=== PATIENT | male | born 1930 | race Caucasian/White ===

== ENCOUNTER 2017-06-11 18:24 | Inpatient (IN) | payer SELFPAY ==
[~2017-06-11] VITALS: Ht 172.7 cm; Wt 56.9 kg
[2017-06-11 01:00] VITALS: PULSE 96
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
[2017-06-11] MEDS ORDERED: MORPHINE SULFATE 2 MG/ML INJ IV PUSH ONE (19:15)
[2017-06-11] MEDS ORDERED: SODIUM CHLORIDE 0.9% FLUSH 10 ML FLUSH IVF PRN (19:15)
[2017-06-11] MEDS ORDERED: SODIUM CHLORID 0.9% 500 ML INJ 500 ML IV ONE (19:30)
--- NOTE | 2017-06-11 19:50 | RADRPT ---
EXAM DATE/TIME: 06/11/2017 19:32 [facility] COMPARISON: No previous studies available for comparison. INDICATIONS : Chest pain. MEDICAL HISTORY : None. SURGICAL HISTORY : CABG. ENCOUNTER: Initial ACUITY: 1 day PAIN SCORE: 1/10 LOCATION: Bilateral chest FINDINGS: The heart is enlarged. Median sternotomy wires are noted status post cardiac surgery. The pulmonary v ascular pattern is normal. The lungs are clear. CONCLUSION: 1. Cardiomegaly. 2. No focal infiltrate or pulmonary vascular congestion. Rahul Coley MD on June 11, 2017 at 19:48 Board Certified Radiologist. This report was verified electronically.
--- NOTE | 2017-06-11 19:51 | RADRPT ---
EXAM DATE/TIME: 06/11/2017 19:29 [facility] COMPARISON: No previous studies available for comparison. INDICATIONS : Left hip pain. Unknown cause of injury. MEDICAL HISTORY : None. SURGICAL HISTORY : CABG. ENCOUNTER: Initial ACUITY: 1 day PAIN SCORE: 10/10 LOCATION: Left hip. FINDINGS: There is an acute subcapital fracture involving the left proximal femur. Aortic stent graft is noted. CONCLUSION: Acute subcapital fracture involving the left proximal femur. Rahul Coley MD on June 11, 2017 at 19:49 Board Certified Radiologist. This report was verified electronically.
[2017-06-11 20:01] VITALS: BP_SYST 142; BP_SYST 145; BP_DIAS 68; BP_DIAS 71; PULSE 77; RESP 18; O2SAT 100
--- NOTE | 2017-06-11 20:23 | RADRPT ---
EXAM DATE/TIME: 06/11/2017 20:06 [facility] COMPARISON: No previous studies available for comparison. INDICATIONS : Altered mental status. RADIATION DOSE: 56.35 CTDIvol (mGy) MEDICAL HISTORY : None SURGICAL HISTORY : None. ENCOUNTER: Initial ACUITY: 1 day PAIN SCALE: 0/10 LOCATION: cranial TECHNIQUE: Multiple contiguous axial images were obtained of the head. Using automated exposure control and adj ustment of the mA and/or kV according to patient size, radiation dose was kept as low as reasonably a chievable to obtain optimal diagnostic quality images. DICOM format image data is available electro nically for review and comparison. FINDINGS: CEREBRUM: Diffuse cerebral atrophy is noted. Moderate periventricular and subcortical white matter small vessel ischemic changes are noted bilaterally. 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 No evidence of midline shift, mass lesion, hemorrhage or acute infarction. No extra-axial fluid collec tions are seen. POSTERIOR FOSSA: The cerebellum and brainstem are intact. The 4th ventricle is midline. The cerebellopontine angle i s unremarkable. EXTRACRANIAL: The visualized portion of the orbits is intact. SKULL: The calvaria is intact. No evidence of skull fracture. CONCLUSION: 1. Diffuse cerebral atrophy. 2. Moderate periventricular and subcortical white matter small vessel ischemic changes bilaterally. 3. 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 4. No acute infarct, acute hemorrhage, mass effect or extra axial fluid collections. Rahul Coley MD on June 11, 2017 at 20:20 Board Certified Radiologist. This report was verified electronically.
[2017-06-11 20:28] LABS: AUTOMATED NEUTROPHIL # 3.4 TH/MM3 (1.8-7.7); BASOPHIL # 0.1 TH/MM3 (0-0.2); BASOPHIL % 2.3 % (0.0-2.0); EOSINOPHIL # 0.3 TH/MM3 (0-0.4); EOSINOPHIL % 5.2 % (0.0-4.0); HEMATOCRIT 32.5 % (39.0-51.0); HEMO FLAGS DIFF FINAL; LYMPH % 26.1 % (9.0-44.0); LYMPHOCYTE # 1.6 TH/MM3 (1.0-4.8); MEAN CELL VOLUME 92.9 FL (80.0-100.0); MEAN CORPUSCULAR HEMOGLOBIN 30.9 PG (27.0-34.0); MEAN CORPUSCULAR HGB CONC 33.2 % (32.0-36.0); MONO % 10.6 % (0.0-8.0); NEUT % 55.8 % (16.0-70.0); PLATELET COUNT 216 TH/MM3 (150-450); RED BLOOD COUNT 3.49 MIL/MM3 (4.50-5.90); RED CELL DISTRIBUTION WIDTH 14.8 % (11.6-17.2); WHITE BLOOD COUNT 6.1 TH/MM3 (4.0-11.0)
[2017-06-11 20:41] LABS: INTERNATIONAL NORMALIZED RATIO 1.1 RATIO; PROTHROMBIN TIME - PATIENT 11.3 SEC (9.8-11.6)
[2017-06-11 20:45] LABS: BICARBONATE 28.2 MEQ/L (21.0-32.0); POTASSIUM 4.6 MEQ/L (3.5-5.1)
[2017-06-11] MEDS ORDERED: NALOXONE HCL 0.4 MG/ML AMP IV PUSH PRN (20:45)
[2017-06-11] MEDS ORDERED: SODIUM CHLORIDE 0.9% FLUSH 10 ML FLUSH IV FLUSH PRN (20:45)
[2017-06-11] MEDS ORDERED: MORPHINE SULFATE 2 MG/ML INJ IV PUSH PRN (21:00)
[2017-06-11] MEDS: SODIUM CHLORIDE 0.9% FLUSH 10 ML FLUSH IV FLUSH SCH (21:23)
[2017-06-12 00:15] VITALS: BP 125/75; PULSE 96; RESP 18; TEMP 96.8; O2SAT 96
[2017-06-12] MEDS ORDERED: CHLORHEXIDINE GLUCONATE 2 % 1 PACK (2 CLOTHS) TOPICAL PRN (01:00)
[2017-06-12] MEDS ORDERED: POVIDONE IODINE 5% (ANTISEPSIS KIT) 4 APPLICATIONS EACH NARE PRN (01:00)
[2017-06-12] MEDS ORDERED: INSULIN HUMAN REGULAR 1,000 UNITS/10 ML VIAL SQ PRN (01:00)
[2017-06-12] MEDS ORDERED: SODIUM CHLORID 0.9% 500 ML IV PRN (01:00)
[2017-06-12] MEDS ORDERED: LACTATED RINGER'S 1000 ML IV PRN (01:00)
[2017-06-12] MEDS ORDERED: METOPROLOL TARTRATE 25 MG TAB PO PRN (01:00)
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
[2017-06-12 04:25] VITALS: BP 118/74; PULSE 89; RESP 18; TEMP 96.7; O2SAT 96
--- NOTE | 2017-06-12 06:50 | PD.ORT.PN ---
Subjective Subjective Remarks [facility] Left hip pain and is unable to ambulate. Patient is very confused Objective Vitals Vital Signs Date Time Temp Pulse Resp B/P (MAP) Pulse Ox O2 Delivery O2 Flow Rate FiO2 06/12/17 04:25 96.7 89 18 118/74 (89) 96 06/12/17 00:15 96.8 96 18 125/75 (92) 96 06/12/17 00:06 06/11/17 20:01 77 18 145/71 (95) 100 Room Air 142/68 (92) 06/11/17 20:01 100 Room Air 06/11/17 20:01 100 Room Air I/O 06/11/17 06/11/17 06/11/17 06/12/17 06/12/17 06/12/17 07:00 15:00 23:00 07:00 15:00 23:00 Intake Total 500 ml 0 ml Balance 500 ml 0 ml Intake Oral 0 ml IV Total 500 ml # Voids 2 # Bowel Movements 1 Result Diagram: 06/11/17199906/11/171999 Other Results Laboratory Tests Test 06/11/17 20:00 Prothromb Time International Ratio 1.1 RATIO Prothrombin Time 11.3 SEC (9.8-11.6) Imaging Last 24 hours Impressions Chest X-Ray 06/11/171909 Signed Impressions: Service Date/Time: Sunday, June 11, 2017 19:32 - CONCLUSION: 1. Cardiomegaly. 2. No focal infiltrate or pulmonary vascular congestion. Rahul Coley MD Objective Remarks Bilateral upper extremities: Full range of motion neurovascularly intact Right lower extremity: Full range of motion neurovascularly intact Left lower extremity: Pain to palpation of hip. No pain with knee or ankle motion. Still has house identification band on left leg area distally intact sensation good capillary refills Assessment & Plan Assessment and Plan Left femoral neck fracture Nothing by mouth Surgery this morning for left hip hemiarthroplasty Nursing to find consents. May need secondary DrCherie consents for medical necessary. Surgery this morning with Dr. Jennifer Yang,[facility] Jun 12, 2017 06:50
[2017-06-12 08:00] VITALS: BP 107/59; PULSE 76; RESP 17; TEMP 96; O2SAT 99
[2017-06-12 08:23] LABS: AUTOMATED NEUTROPHIL # 3.3 TH/MM3 (1.8-7.7); BASOPHIL # 0.1 TH/MM3 (0-0.2); BASOPHIL % 1.7 % (0.0-2.0); EOSINOPHIL # 0.4 TH/MM3 (0-0.4); EOSINOPHIL % 6.6 % (0.0-4.0); HEMATOCRIT 29.1 % (39.0-51.0); HEMO FLAGS DIFF FINAL; LYMPH % 20.9 % (9.0-44.0); LYMPHOCYTE # 1.1 TH/MM3 (1.0-4.8); MEAN CELL VOLUME 92.8 FL (80.0-100.0); MEAN CORPUSCULAR HGB CONC 34.5 % (32.0-36.0); MONO % 8.9 % (0.0-8.0); NEUT % 61.9 % (16.0-70.0); PLATELET COUNT 188 TH/MM3 (150-450); RED BLOOD COUNT 3.14 MIL/MM3 (4.50-5.90); RED CELL DISTRIBUTION WIDTH 15.2 % (11.6-17.2); WHITE BLOOD COUNT 5.4 TH/MM3 (4.0-11.0)
[2017-06-12] MEDS ORDERED: TRANEXAMIC ACID IV ONE (08:45)
[2017-06-12] MEDS ORDERED: SODIUM CHLORIDE 0.9% IV ONE (08:45)
[2017-06-12 08:50] LABS: BICARBONATE 26.3 MEQ/L (21.0-32.0); POTASSIUM 3.9 MEQ/L (3.5-5.1)
[2017-06-12] MEDS: SODIUM CHLORIDE 0.9% FLUSH 10 ML FLUSH IV FLUSH SCH ×2 (09:00→20:44)
--- NOTE | 2017-06-12 09:10 | HHI.PR ---
Addendum to Inpatient Note Addendum Reason: Additional Documentation Additional Information Patient is very confused and demented. as per documentation, the patient was dropped into [facility] for evaluation by DCF. At the moment the patient is very confused, denies any prior medical history although he has a visible midline sternal scar. Lungs are clear to auscultation bilaterally, abdomen is soft, nontender, nondistended. There is pain elicited upon palpation of the left hip. The patient has a subcapital left femoral fracture for which orthopedic surgery has been consulted and recommended surgical repair. Given the high morbidity and mortality associated with hip fractures, it is of medical necessity for the patient to have the fracture repaired. Signed consent on behalf of the patient. Rancho Arguello MD Jun 12, 2017 09:10
--- NOTE | 2017-06-12 09:22 | MB ---
cc: CONY VASQEUZ DATE OF CONSULTATION 06/12/2017 REASON FOR CONSULTATION Displaced left femoral neck fracture. CONSULTING PHYSICIAN Dr. Rizvi KRIS Kay is an 87-year-old male who had been living at home alone. He was subsequently taken to a rehab center recently because of difficulty managing himself at home. He does have some possible early dementia. The patient was found to have left hip pain with some deformity of his left leg. He was brought to the emergency room. He was found to have a displaced left femoral neck fracture. He complains of left hip pain. Pain is worse with movement. He has had difficulty ambulating. PAST MEDICAL HISTORY Past medical history from the patient is unreliable. He has some confusion. He denies any significant medical problems. SURGERIES The patient does not recall any surgery. ALLERGIES PENICILLIN MEDICATIONS Please see EMR for inpatient medications. SOCIAL HISTORY He originally lived in [place], [place] The patient denies alcohol, tobacco or drug use. FAMILY HISTORY Positive for asthma in a brother. REVIEW OF SYSTEMS The patient denies headache, visual changes, neck pain, chest pain, shortness of breath, abdominal pain, nausea, vomiting or recent weight loss, bowel or bladder incontinence, numbness or tingling of extremities. He complains of left hip pain. He has difficulty ambulating secondary to his hip pain. PHYSICAL EXAMINATION The patient is a thin 87-year-old male. He is awake. He answers questions, but his answers are not completely reliable. He appears well-developed, well-nourished. VITAL SIGNS: Temperature 96.0, pulse 76, respirations 17, blood pressure 107/59, O2 sat 99% on room air. HEAD: The patient is normocephalic. EYES: Pupils are equal. NECK: Soft, nontender. Trachea is midline. ABDOMEN: Soft, nontender, nondistended. EXTREMITIES: Examination of the bilateral upper extremities reveals no pain with shoulder, elbow or wrist motion. He has intact sensation in all fingers. He has good cap refill in all fingers. Skin is intact. Radial pulses are palpable. Examination of the right leg reveals no pain with hip, knee or ankle motion. Skin is intact. Dorsalis pedis pulse is palpable. Sensation intact. Examination of the left leg reveals that the leg is shortened. He has pain with any hip motion. He has minimal tenderness around his knee, tibia, or ankle. Skin is intact. Dorsalis pulse is palpable. X-RAYS X-rays of left hip were reviewed. X-rays reveal a displaced left femoral neck fracture. IMPRESSION 1. Displaced left femoral neck fracture. 2. Early dementia. PLAN Treatment options were discussed with the patient. At this point, I would recommend left hip hemiarthroplasty. The risks of surgery include bleeding, infection, injury to arteries, nerves and blood vessels, hip dislocation, leg length discrepancy, femur fracture, as well as medical complications including blood clot, stroke, heart attack and . All questions were answered. I will plan on surgery today. A mid-level provider in my office, nurse practitioner or PA, may see this patient on a follow-up basis and continue to implement the objective of this plan including: Starting or adjusting medications, injections of muscle, tendon, bursa or joints, cast application, orthotic or brace application, physical therapy, further radiographic studies including x-ray, MRI, CT, ultrasounds or bone scan, vascular studies, neurologic studies, or other specialist consultations, and proceeding with surgical management as appropriate. MD FAVIOLA Cabral/AUDI /8:56 AM /9:09 AM
[2017-06-12] MEDS ORDERED: VITA500012 PO (10:21)
[2017-06-12] MEDS ORDERED: HYDR-3580 PO (10:21)
[2017-06-12] MEDS ORDERED: XARE10TA PO (10:21)
[2017-06-12] MEDS ORDERED: CALCTAB19 PO (10:21)
[2017-06-12] MEDS ORDERED: WALKER/ADULT/FO1 MIS (10:21)
[2017-06-12] MEDS ORDERED: VITA2000 PO (10:21)
[2017-06-12] MEDS ORDERED: VANCOMYCIN HCL 1000 MG VIAL ONE (10:35)
[2017-06-12] MEDS ORDERED: GENTAMICIN SULFATE 80 MG/2 ML VIAL ONE ×2 (10:35)
[2017-06-12] MEDS ORDERED: CLINDAMYCIN PHOS 600 MG/4 ML VIAL ONE (10:38)
[2017-06-12] MEDS ORDERED: Post-op Orders (for Pharmacy) MISC XX ONE (11:00)
[2017-06-12] MEDS ORDERED: MORPHINE SULFATE 4 MG/ML INJ IV PUSH PRN (11:00)
[2017-06-12] MEDS ORDERED: ceFAZolin 2 GM PREMIX 50 ML IV SCH (11:00)
--- NOTE | 2017-06-12 11:01 | PD.OP ---
cc: Winston Rodriguez MD Operative Report Date of Surgery: Jun 12, 2017 Preoperative Diagnosis: Displaced left femoral neck fracture Postoperative Diagnosis: Procedure: Left hip bipolar hemiarthroplasty Anesthesia: Gen. Surgeon: Winston Rodriguez Accounting Assistant(s): ANURADHA Conway PA-C The surgical procedure was assisted by my physician commercial loan assistant. My P.A. presence was necessary throughout this case for the manipulation and positioning of the surgical extremity. My P.A. was assisting me throughout the duration of this procedure. The skill set of a physician commercial loan assistant was medically necessary to complete this procedure. During the surgical case the surgical nurse was working at the back table and the physician commercial loan assistant was directly assisting me. Operation and Findings: PLAN OF ACTIVITY Weight bear as tolerated. IMPLANTS USED DePuy Corail size [15] stem with size [50] bipolar head and [+1] neck. DRAIN: 7 mm Chirstiano-Campbell drain DETAILS OF PROCEDURE This patient was brought into the operating room and placed on the OR table. The patient was given anesthesia. The patient received IV antibiotics. The patient was then placed in lateral decubitus position. The hip and leg were prepped with alcohol, followed by Hibiclens and draped in a usual sterile fashion. Clean air was used for this procedure. Time out procedure was performed. The procedure began with a 5 inch incision over the posterolateral hip. The subcutaneous tissue was dissected with the Bovie. The iliotibial band were split in line with fibers. The Charnley retractor was placed. The piriformis and external rotators were released from the femur and tagged with a #1 Vicryl suture. The capsule is now incised and tagged with #1 Vicryl. The femoral neck fracture was now visualized. A corkscrew was now used to remove the femoral head. The femoral head was sized and measured. Soft tissue was now protected. The hip skid was placed underneath the femoral neck. An oscillating saw was used to make a femoral neck cut. At this point attention was turned to preparation of the proximal femur. A box osteotome was used to remove the lateral cortex of the femoral neck. The T- handle reamer was used to open the femoral canal. Next, the canal was broached. A lateralizing reamer was used to help lateralize the prosthesis. At this point a trial head and neck were placed. The hip was reduced. The patient was found to have excellent stability with good range of motion. Trial components were removed. Soft tissue and bone were thoroughly irrigated. A Corail stem was now opened. The stem was now impacted into the proximal femur. Care was taken to keep appropriate anteversion. The head and neck were now impacted onto the stem. The hip was again reduced. The hip was found to have good range of motion and good stability. Leg lengths were clinically equal. The wound was thoroughly irrigated. The capsule, piriformis and iliotibial band were closed with #1 Vicryl. Subcutaneous tissue was closed with 3-0 Vicryl. The skin was closed with Prineo. A sterile dressing was applied with Primapore. The patient was placed into a knee immobilizer. The patient was awakened and transferred to the recovery room in stable condition. Needle and sponge counts were correct. Winston Rodriguez MD Jun 12, 2017 11:01
[2017-06-12] MEDS ORDERED: ERGOCALCIFEROL (VIT D2) 50,000 UNIT CAP PO ONE (13:00)
[2017-06-12 13:35] VITALS: BP 110/72; PULSE 94; RESP 17; TEMP 95.2; O2SAT 98
[2017-06-12] MEDS ORDERED: DO NOT ADM ANY ANTICOAGULANT DRUGS PRN (14:15)
[2017-06-12 16:00] VITALS: BP 138/72; PULSE 137; RESP 17; TEMP 96.3; O2SAT 94
--- NOTE | 2017-06-12 16:17 | RADRPT ---
EXAM DATE/TIME: 06/12/2017 12:56 [facility] COMPARISON: HIP LEFT (AP&LAT 2/3VWS) W AP PELVIS, June 11, 2017, 19:29. INDICATIONS : Post op left hip surgery MEDICAL HISTORY : None. SURGICAL HISTORY : None. ENCOUNTER: Initial ACUITY: 1 day PAIN SCORE: 0/10 LOCATION: Left hip and pelvis FINDINGS: Left hip arthroplasty is present. The alignment is anatomic. There is no evidence of acute fracture. CONCLUSION: Postsurgical changes as above. Michael Pastor MD on June 12, 2017 at 16:15 Board Certified Radiologist. This report was verified electronically.
[2017-06-12] MEDS: ACETAMINOPHEN/HYDROcodone 325 MG/5 MG TAB PO PRN (16:22)
[2017-06-12] MEDS ORDERED: REME15TA PO (17:37)
[2017-06-12] MEDS ORDERED: DONE10TA7 PO (17:37)
[2017-06-12] MEDS ORDERED: METO25TA3 PO (17:37)
[2017-06-12] MEDS ORDERED: SENN8.6T81 PO (17:37)
--- NOTE | 2017-06-12 17:48 | EKG ---
Date Performed: 06/11/2017 Time Performed: 19:46:52 PTAGE: 87 years EKG: ATRIAL FIBRILLATION MARKED LEFT AXIS DEVIATION LOW QRS VOLTAGE IN EXTREMITY LEADS Poor R wa ve progression. Consider anterolateral ischemia. NO PREVIOUS TRACING DOCTOR: Patricio James Interpretating Date/Time 06/12/2017 17:46:58
[2017-06-12] MEDS: CLINDAMYCIN INJ 900 MG in SODIUM CHLORIDE 0.9% INJ 100 ML IV SCH (18:05)
[2017-06-12 19:20] VITALS: BP 115/69; PULSE 98; RESP 18; TEMP 98.8; O2SAT 95
[2017-06-12] MEDS: METOPROLOL TARTRATE 25 MG TAB PO SCH (20:37)
[2017-06-12] MEDS: CALCIUM/VITAMIN D 250 MG/125 U TAB PO SCH (20:38)
[2017-06-12] MEDS: SENNOSIDES 8.6 MG TAB PO SCH (20:38)
[2017-06-12] MEDS: MIRTAZAPINE 15 MG TAB PO SCH (20:38)
[2017-06-12] MEDS: DONEPEZIL HCL 5 MG TAB PO SCH (20:39)
[2017-06-13] VITALS (8 sets, daily range): BP systolic 97–130; BP diastolic 59–64; PULSE 79–99; RESP 16–18; TEMP 97–98.5; O2SAT 95–100
[2017-06-13] MEDS: CLINDAMYCIN INJ 900 MG in SODIUM CHLORIDE 0.9% INJ 100 ML IV SCH ×2 (01:56→09:03)
--- NOTE | 2017-06-13 06:44 | PD.ORT.PN ---
Subjective Subjective Remarks Resting comfortably with no new complaints Objective Vitals Vital Signs Date Time Temp Pulse Resp B/P (MAP) Pulse Ox O2 Delivery O2 Flow Rate FiO2 06/13/17 04:00 98.1 90 16 100/64 (76) 97 06/13/17 00:00 97.0 94 16 97/60 (72) 98 06/12/17 19:20 98.8 98 18 115/69 (84) 95 06/12/17 16:00 96.3 137 17 138/72 (94) 94 06/12/17 13:35 77 16 99/54 (69) 98 Room Air 06/12/17 13:35 95.2 94 17 110/72 (85) 98 06/12/17 13:15 75 16 104/71 (82) 99 Room Air 06/12/17 13:00 72 16 125/59 (81) 98 Room Air 06/12/17 12:45 79 16 125/59 (81) 99 Room Air 06/12/17 12:30 70 16 122/66 (84) 99 Nasal Cannula 2 06/12/17 12:19 96.7 79 16 130/63 (85) 99 Nasal Cannula 2 06/12/17 08:00 96.0 76 17 107/59 (75) 99 I/O 06/12/17 06/12/17 06/12/17 06/13/17 06/13/17 06/13/17 07:00 15:00 23:00 07:00 15:00 23:00 Intake Total 0 ml 700 ml 240 ml 360 ml Output Total 550 ml 300 ml Balance 0 ml 150 ml -60 ml 360 ml Intake Oral 0 ml 240 ml 360 ml Other 700 ml Output Urine Total 500 ml 300 ml Estimated Blood Loss 50 ml # Voids 2 # Bowel Movements 1 Result Diagram: 06/12/17 0654 06/12/17 0654 Imaging Last 24 hours Impressions Chest X-Ray 06/11/171909 Signed Impressions: Service Date/Time: Sunday, June 11, 2017 19:32 - CONCLUSION: 1. Cardiomegaly. 2. No focal infiltrate or pulmonary vascular congestion. Rahul Coley MD Objective Remarks Bilateral upper extremities: Full range of motion neurovascularly intact Right lower extremity: Full range of motion neurovascularly intact Left lower extremity: Clean dry dressings intact. Knee immobilizer in place. Distally intact sensation good capillary refills. Active dorsal flexion plantar flexion of foot Assessment & Plan Assessment and Plan Left hip hemiarthroplasty POD 1 Physical therapy weightbearing as tolerated with posterior hip precautions. knee immobilizer while in bed Lovenox Case management for discharge planning to rehabilitation Friday or Friday Dry dressings. Only changes saturated Follow-up Dr. Rodriguez or PA in 2 weeks Young Yang Jr. Jun 13, 2017 06:44
[2017-06-13 07:00] LABS: HEMATOCRIT 29.6 % (39.0-51.0); REVIEW FLAG FINAL
[2017-06-13] MEDS: SODIUM CHLORIDE 0.9% FLUSH 10 ML FLUSH IV FLUSH SCH ×2 (09:00→21:22)
[2017-06-13] MEDS: CHOLECALCIFEROL (VIT D3) 1000 UNIT TAB PO SCH (09:03)
[2017-06-13] MEDS: METOPROLOL TARTRATE 25 MG TAB PO SCH ×2 (09:03→21:21)
[2017-06-13] MEDS: CHOLECALCIFEROL (VIT D3) 5000 UNIT CAP PO SCH (09:03)
[2017-06-13] MEDS: CALCIUM/VITAMIN D 250 MG/125 U TAB PO SCH ×2 (09:03→21:21)
[2017-06-13] MEDS: ENOXAPARIN SODIUM 30 MG/0.3 ML SYRINGE SQ SCH (12:54)
[2017-06-13] MEDS: ACETAMINOPHEN/HYDROcodone 325 MG/5 MG TAB PO PRN (12:55)
--- NOTE | 2017-06-13 17:25 | HHI.PR ---
Subjective Remarks No major overnight events. Patient denies pain. Denies cp/sob. awake - seems to be confused. Objective Vitals Vital Signs Date Time Temp Pulse Resp B/P (MAP) Pulse Ox O2 Delivery O2 Flow Rate FiO2 06/13/17 14:24 96 06/13/17 11:54 97.9 86 18 122/62 (82) 95 06/13/17 08:00 97.2 99 18 130/62 (84) 100 06/13/17 04:00 98.1 90 16 100/64 (76) 97 06/13/17 00:00 97.0 94 16 97/60 (72) 98 06/12/17 19:20 98.8 98 18 115/69 (84) 95 I/O 06/12/17 06/12/17 06/12/17 06/13/17 06/13/17 06/13/17 07:00 15:00 23:00 07:00 15:00 23:00 Intake Total 0 ml 700 ml 240 ml 466 ml Output Total 550 ml 300 ml Balance 0 ml 150 ml -60 ml 466 ml Intake Oral 0 ml 240 ml 360 ml IV Total 106 ml Other 700 ml Output Urine Total 500 ml 300 ml Estimated Blood Loss 50 ml # Voids 2 # Bowel Movements 1 Result Diagram: 06/13/17 0635 06/12/17 0654 Imaging Last Impressions Hip and Pelvis X-Ray 06/12/17 1058 Signed Impressions: Service Date/Time: June 12:56 - CONCLUSION: Postsurgical changes as above. Michael Pastor MD Chest X-Ray 06/11/17 1910 Signed Impressions: Service Date/Time: Sunday, June 11, 2017 19:32 - CONCLUSION: 1. Cardiomegaly. 2. No focal infiltrate or pulmonary vascular congestion. Rahul Coley MD Head CT 06/11/17 0000 Signed Impressions: Service Date/Time: Sunday, June 11, 2017 20:06 - CONCLUSION: 1. Diffuse cerebral atrophy. 2. Moderate periventricular and subcortical white matter small vessel ischemic changes bilaterally. 3. 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 4. No acute infarct, acute hemorrhage, mass effect or extra axial fluid collections. Rahul Coley MD Objective Remarks Awake and alert oriented to person Clear lungs BL Abdomen soft, nt, nd S1S2 irregularly irregular, no MRG left lower extremity on a cast. Pedal pulses present BL Medications and IVs Current Medications Medications (Trade) Dose Ordered Sig/Chelsey Route Start Time Stop Time Status Last Admin (NS Flush) 2 ml UNSCH PRN IV FLUSH 06/11/17 20:45 (NS Flush) 2 ml BID IV FLUSH 06/11/17 21:00 (Narcan Inj) 0.4 mg UNSCH PRN IV PUSH 06/11/17 20:45 (Morphine Inj) 2 mg Q3H PRN IV PUSH 06/11/17 21:00 Lactated Ringer's 1,000 ml @ 30 mls/hr Q24H PRN IV 06/12/17 01:00 06/15/17 00:59 Sodium Chloride 500 ml @ 30 mls/hr [id number] PRN IV 06/12/17 01:00 06/15/17 00:59 (Lopressor) 25 mg INSIDE SALES ASSISTANT PRN PO 06/12/17 01:00 06/15/17 00:59 (Betadine 5% Antisepsis Kit) 1 applic INSIDE SALES ASSISTANT PRN EACH NARE 06/12/17 01:00 06/15/17 00:59 (Chlorhexidine 2% Cloth) 3 pack INSIDE SALES ASSISTANT PRN TOPICAL 06/12/17 01:00 06/15/17 00:59 (NovoLIN R INJ) See Protocol Table ... INSIDE SALES ASSISTANT PRN SQ 06/12/17 01:00 06/15/17 00:59 (Lovenox Inj) 30 mg Q24H SQ 06/13/17 12:00 06/13/17 12:54 ([place] 5-325 Mg) 1 tab Q3H PRN PO 06/12/17 11:00 06/13/17 12:55 (Morphine Inj) 3 mg Q3H PRN IV PUSH 06/12/17 11:00 (Vitamin D3) 5,000 units DAILY PO 06/13/17 09:00 06/13/17 09:03 (Vitamin D3) 2,000 units DAILY PO 06/13/17 09:00 06/13/17 09:03 (Aricept) 10 mg HS PO 06/12/17 21:00 06/12/17 20:39 (Lopressor) 25 mg BID PO 06/12/17 21:00 06/13/17 09:03 (Remeron) 15 mg HS PO 06/12/17 21:00 06/12/17 20:38 (Senokot) 8.6 mg HS PO 06/12/17 21:00 06/12/17 20:38 (Oscal-D 250-125) 500 mg BID PO 06/12/17 21:00 06/13/17 09:03 A/P Problem List: (1) Hip fracture, left ICD Code: S72.002A - Fracture of unspecified part of neck of left femur, initial encounter for closed fracture Status: Acute Plan: Postop day #1 That is post left hemiarthroplasty by orthopedic surgery. Pain control as per orthopedic surgery recommendations. Continue [place] and morphine sulfate IV as needed for pain. As per orthopedic surgery weightbearing as tolerated with posterior hip precautions. (2) Confused ICD Code: R41.0 - Disorientation, unspecified Status: Acute Plan: Patient seems to have possible dementia. Awake and alert. Follows commands. Continue donepezil which the patient takes at home. (3) A-fib ICD Code: I48.91 - Unspecified atrial fibrillation Status: Acute Plan: Rate controlled at this moment. The patient previously on Xarelto however likely the patient is not a good candidate for anticoagulation at this time due to high risk of falls. Continue metoprolol tartrate 25 minutes by mouth twice a day. Assessment and Plan DVT prophylaxis: As per orthopedic surgery recommendations. Problem Qualifiers (1) Hip fracture, left: Qualified Codes: S72.002A - Fracture of unspecified part of neck of left femur , initial encounter for closed fracture (2) A-fib: Qualified Codes: I48.1 - Persistent atrial fibrillation Rancho Arguello MD Jun 13, 2017 17:25
[2017-06-13] MEDS: SENNOSIDES 8.6 MG TAB PO SCH (21:21)
[2017-06-13] MEDS: MIRTAZAPINE 15 MG TAB PO SCH (21:21)
[2017-06-13] MEDS: DONEPEZIL HCL 5 MG TAB PO SCH (21:21)
[2017-06-14] VITALS: BP 104/60; PULSE 87; RESP 18; TEMP 98.9; O2SAT 97
[2017-06-14 07:57] VITALS: BP 123/64; PULSE 111; RESP 18; TEMP 98.7; O2SAT 98
[2017-06-14 08:00] VITALS: PULSE 120
--- NOTE | 2017-06-14 08:01 | PD.ORT.PN ---
Subjective Subjective Remarks pt has no complaints of pain today Objective Vitals Vital Signs Date Time Temp Pulse Resp B/P (MAP) Pulse Ox O2 Delivery O2 Flow Rate FiO2 06/14/17 07:57 98.7 111 18 123/64 (83) 98 06/14/17 00:00 98.9 87 18 104/60 (75) 97 06/13/17 20:00 97.7 88 16 123/63 (83) 97 06/13/17 17:54 96 06/13/17 15:20 98.5 79 18 116/59 (78) 99 06/13/17 14:24 96 06/13/17 11:54 97.9 86 18 122/62 (82) 95 I/O 06/13/17 06/13/17 06/13/17 06/14/17 06/14/17 06/14/17 07:00 15:00 23:00 07:00 15:00 23:00 Intake Total 466 ml 660 ml 480 ml 120 ml Balance 466 ml 660 ml 480 ml 120 ml Intake Oral 360 ml 660 ml 480 ml 120 ml IV Total 106 ml # Voids 2 3 2 # Bowel Movements 0 Result Diagram: 06/13/17 0635 06/12/17 0654 Imaging Last 24 hours Impressions Chest X-Ray 06/11/17 191 Signed Impressions: Service Date/Time: Sunday, June 11, 2017 19:32 - CONCLUSION: 1. Cardiomegaly. 2. No focal infiltrate or pulmonary vascular congestion. Rahul Coley MD Objective Remarks seen by Dr. Manny Estrella Bilateral upper extremities: Full range of motion neurovascularly intact Right lower extremity: Full range of motion neurovascularly intact Left lower extremity: Clean dry dressings intact. Knee immobilizer in place. Distally intact sensation good capillary refills. Active dorsal flexion plantar flexion of foot Assessment & Plan Assessment and Plan Left hip hemiarthroplasty POD #2 Physical therapy weightbearing as tolerated with posterior hip precautions. knee immobilizer while in bed Lovenox Case management for discharge planning to rehabilitation today Dry dressings. Only changes saturated Follow-up Dr. Rodriguez or PA in 2 weeks Cleopatra Stubbs Jun 14, 2017 08:01
--- NOTE | 2017-06-14 08:40 | HHI.PR ---
Subjective Remarks She is seen this morning at 8 AM. Says he's feeling well. Denies any chest pain or shortness of breath. Reports pain is controlled. Objective Vital Signs Date Time Temp Pulse Resp B/P (MAP) Pulse Ox O2 Delivery O2 Flow Rate FiO2 06/14/17 07:57 98.7 111 18 123/64 (83) 98 06/14/17 00:00 98.9 87 18 104/60 (75) 97 06/13/17 20:00 97.7 88 16 123/63 (83) 97 06/13/17 17:54 96 06/13/17 15:20 98.5 79 18 116/59 (78) 99 06/13/17 14:24 96 06/13/17 11:54 97.9 86 18 122/62 (82) 95 I/O 06/13/17 06/13/17 06/13/17 06/14/17 06/14/17 06/14/17 07:00 15:00 23:00 07:00 15:00 23:00 Intake Total 466 ml 660 ml 480 ml 120 ml Balance 466 ml 660 ml 480 ml 120 ml Intake Oral 360 ml 660 ml 480 ml 120 ml IV Total 106 ml # Voids 2 3 2 # Bowel Movements 0 Result Diagram: 06/13/17 0635 06/12/17 0654 Objective Remarks GENERAL: Patient lying in bed. Appears comfortable. SKIN: Warm and dry. HEAD: Normocephalic. EYES: No scleral icterus. No injection or drainage. NECK: Supple, trachea midline. No JVD. CARDIOVASCULAR: Regular rate and rhythm without murmurs, gallops, or rubs. RESPIRATORY: Breath sounds equal bilaterally. No accessory muscle use. GASTROINTESTINAL: Abdomen soft, non-tender, nondistended. MUSCULOSKELETAL: No cyanosis, or edema. Peripheral perfusion intact. BACK: Nontender without obvious deformity. No CVA tenderness. A/P Assessment and Plan //Hip fracture, left status post left hemiarthroplasty by orthopedic surgery. Pain control as per orthopedic surgery recommendations. Continue [place] and morphine sulfate IV as needed for pain. As per orthopedic surgery weightbearing as tolerated with posterior hip precautions. //Confused //Suspected chronic dementia. Follows commands. Continue donepezil which the patient takes at home. // A-fib =The patient previously on Xarelto however likely the patient is not a good candidate for anticoagulation at this time due to high risk of falls. = Patient does have history of stroke as seen on head CT. Recommend follow-up with cardiology to consider continuation of anticoagulation. Continue metoprolol tartrate 25 minutes by mouth twice a day. Assessment and Plan DVT prophylaxis: As per orthopedic surgery recommendations. Discharge Planning Discharge to SNF today. Follow-up with orthopedics as outpatient Recommend follow-up with cardiology to address continued anticoagulation given history of ASesar Morrison MD Jun 14, 2017 08:40
--- NOTE | 2017-06-14 08:45 | HHI.DS ---
Discharge Summary Admission Date Jun 11, 2017 at 20:44 Discharge Date: Jun 14, 2017 Admitting Diagnosis hip fracture, confusion, possible dementia (1) Hip fracture, left ICD Code: S72.002A - Fracture of unspecified part of neck of left femur, initial encounter for closed fracture Status: Acute (2) Confused ICD Code: R41.0 - Disorientation, unspecified Status: Acute (3) A-fib ICD Code: I48.91 - Unspecified atrial fibrillation Status: Acute Procedures Left hip hemiarthroplasty Brief History - From Admission left hip top of hip pain said he fell about a month ago denies passing out denies any other symptoms apart from pain CBC/BMP: 06/13/17 0635 06/12/17 0654 Significant Findings Laboratory Tests Test 06/11/17 20:00 06/12/17 06:54 06/13/17 06:35 Red Blood Count 3.49 MIL/MM3 (4.50-5.90) 3.14 MIL/MM3 (4.50-5.90) Hemoglobin 10.8 GM/DL (13.0-17.0) 10.1 GM/DL (13.0-17.0) 10.2 GM/DL (13.0-17.0) Hematocrit 32.5 % (39.0-51.0) 29.1 % (39.0-51.0) 29.6 % (39.0-51.0) Mean Platelet Volume 6.8 FL (7.0-11.0) Monocytes (%) (Auto) 10.6 % (0.0-8.0) 8.9 % (0.0-8.0) Eosinophils (%) (Auto) 5.2 % (0.0-4.0) 6.6 % (0.0-4.0) Basophils (%) (Auto) 2.3 % (0.0-2.0) Estimat Glomerular Filtration Rate 74 ML/MIN (>89) Calcium Level 8.4 MG/DL (8.5-10.1) Chloride Level 109 MEQ/L (98-107) Imaging Last Impressions Hip and Pelvis X-Ray 06/12/17 1058 Signed Impressions: Service Date/Time: June 12:56 - CONCLUSION: Postsurgical changes as above. Michael Pastor MD Chest X-Ray 06/11/17 1910 Signed Impressions: Service Date/Time: Sunday, June 11, 2017 19:32 - CONCLUSION: 1. Cardiomegaly. 2. No focal infiltrate or pulmonary vascular congestion. Rahul Coley MD Head CT 06/11/17 0000 Signed Impressions: Service Date/Time: Sunday, June 11, 2017 20:06 - CONCLUSION: 1. Diffuse cerebral atrophy. 2. Moderate periventricular and subcortical white matter small vessel ischemic changes bilaterally. 3. 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 4. No acute infarct, acute hemorrhage, mass effect or extra axial fluid collections. Rahul Coley MD PE at Discharge Awake and alert oriented to person Clear lungs BL Abdomen soft, nt, nd S1S2 irregularly irregular, no MRG left lower extremity on a cast. Pedal pulses present BL Hospital Course X-rays with left hip fracture as above. Patient underwent left hemiarthroplasty by orthopedic surgery. Uncomplicated postoperative course. Patient was discharged home with a course of anticoagulation as per orthopedics. Follow-up with orthopedics as outpatient. Patient remained confused during admission, likely secondary to chronic dementia. Continued on dementia meds. Patient does have history of atrial fibrillation, with what appears to be prior strokes on CT brain. Recommend follow-up with cardiology as outpatient to address the possible need for ongoing anticoagulation. for Problem-based summary from most recent progress note, please see below. Assessment and Plan //Hip fracture, left status post left hemiarthroplasty by orthopedic surgery. Pain control as per orthopedic surgery recommendations. Continue [place] and morphine sulfate IV as needed for pain. As per orthopedic surgery weightbearing as tolerated with posterior hip precautions. //Confused //Suspected chronic dementia. Follows commands. Continue donepezil which the patient takes at home. // A-fib =The patient previously on Xarelto however likely the patient is not a good candidate for anticoagulation at this time due to high risk of falls. = Patient does have history of stroke as seen on head CT. Recommend follow-up with cardiology to consider continuation of anticoagulation. Continue metoprolol tartrate 25 minutes by mouth twice a day. Assessment and Plan DVT prophylaxis: As per orthopedic surgery recommendations. Discharge Planning Discharge to SNF today. Follow-up with orthopedics as outpatient Recommend follow-up with cardiology to address continued anticoagulation given history of A. fib. Pt Condition on Discharge: Good Discharge Disposition: Discharge to SNF Discharge Time: > 30 minutes Discharge Instructions DIET: Follow Instructions for: Diabetic Diet Activities you can perform: Weight Bearing as José Activities to Avoid: Shower Follow up Referrals: Cardiology - 1 Week Orthopedics - 2 Weeks @ [facility] with Winston Neal MD New Medications: Calcium Carbonate-Vitamin D (Calcium 600+D 200) 600-200 Mg-Unit Tab 1 TAB PO BID for Nutritional Supplement for 30 Days, #60 TAB 0 Refills Cholecalciferol (Vitamin D3) 2,000 Unit Cap 2000 UNITS PO DAILY for Nutritional Supplement, #56 CAP 0 Refills Ergocalciferol (Ergocalciferol) 50,000 Unit Cap 56297 UNITS PO Q7D for Nutritional Supplement, #56 CAP Hydrocodone-Acetaminophen (Hydrocodone-Acetaminophen) 7.5 Mg-325 Mg Tab 1 TAB PO Q4H PRN for PAIN, #60 TAB 0 Refills Rivaroxaban (Xarelto) 10 Mg Tab 10 MG PO DAILY for Blood Clot Prevention, #14 TAB 0 Refills Walker/Adult/Folding (Walker/Adult/Folding) 1 Mis Mis EA .ROUTE DIRECTED, #1 0 Refills Continued Medications: Donepezil (Donepezil) 10 Mg Tab 10 MG PO HS for Dementia, #30 TAB 0 Refills Metoprolol Tartrate (Metoprolol Tartrate) 25 Mg Tab 25 MG PO BID, #60 TAB 0 Refills Mirtazapine (Remeron) 15 Mg Tab 15 MG PO HS for Depression Control, #30 TAB 0 Refills Sennosides (Sennosides) 8.6 Mg Tab 8.6 MG PO HS for Constipation, TAB 0 Refills Sesar Wray MD Jun 14, 2017 08:45
[2017-06-14] MEDS: SODIUM CHLORIDE 0.9% FLUSH 10 ML FLUSH IV FLUSH SCH (09:00)
[2017-06-14] MEDS: CHOLECALCIFEROL (VIT D3) 5000 UNIT CAP PO SCH (09:33)
[2017-06-14] MEDS: CALCIUM/VITAMIN D 250 MG/125 U TAB PO SCH (09:33)
[2017-06-14] MEDS: CHOLECALCIFEROL (VIT D3) 1000 UNIT TAB PO SCH (09:33)
[2017-06-14] MEDS: METOPROLOL TARTRATE 25 MG TAB PO SCH (09:33)
[2017-06-14] MEDS: ACETAMINOPHEN/HYDROcodone 325 MG/5 MG TAB PO PRN (09:33)
[2017-06-14] MEDS: ENOXAPARIN SODIUM 30 MG/0.3 ML SYRINGE SQ SCH (11:58)
[2017-06-14 12:00] VITALS: BP 112/62; PULSE 78; RESP 16; TEMP 98.8; O2SAT 100
[2017-06-14] MEDS ORDERED: SENNOSIDES 8.6 MG TAB PO ONE (12:00)
[2017-06-14] MEDS ORDERED: MAGNESIUM HYDROXIDE SUSP 30 ML CUP PO PRN (12:15)
[2017-06-14] MEDS ORDERED: BISACODYL 10 MG SUPP RECTAL ONE (14:45)
[2017-06-14 16:00] VITALS: BP 156/70; PULSE 109; RESP 18; TEMP 98.7; O2SAT 98
[2017-06-14 17:35] VITALS: O2SAT 99
[2017-06-15] MEDS ORDERED: SENNOSIDES 8.6 MG TAB PO ONE (12:00)
== END 2017-06-14 20:21 | DRG 470 ==
LOC: NEPE 18:24 → NEDA 20:44 → N06A 06-12 00:07
PROVIDERS: ADMIT Internal Medicine; ATTEND Internal Medicine
PROC: 0SRB01A Replacement of Left Hip Joint with Metal Synthetic Substitute, Uncemented, Open Approach (ICD-10-PCS; principal; 2017-06-12 10:46)
DX: S72.012A Unspecified intracapsular fracture of left femur, initial encounter for closed fracture (principal); I48.1 Persistent atrial fibrillation; F03.90 Unspecified dementia, unspecified severity, without behavioral disturbance, psychotic disturbance, mood disturbance, and anxiety; Z95.1 Presence of aortocoronary bypass graft; Z91.81 History of falling; Z86.73 Personal history of transient ischemic attack (TIA), and cerebral infarction without residual deficits
CPT/HCPCS: 70450; 71010; 73502; 80048; 82306; 85014; 85018; 85025; 85610; 86850; 86900; 86901; 88305; 88311; 93005; J1580; J1650; J2270; J3370; J7040; L1830

== ENCOUNTER 2017-07-19 10:03 | Inpatient (IN) | payer SELFPAY ==
[2017-07-19] VITALS (15 sets, daily range): BP systolic 96–129; BP diastolic 53–75; PULSE 82–151; RESP 14–38; TEMP 98–100.3; O2SAT 93–100
[~2017-07-19] VITALS: Ht 170.2 cm; Wt 64.0 kg
[~2017-07-19 10:03] MED LIST: CALCTAB19 PO; DONE10TA7 PO; HYDR-3580 PO; METO25TA3 PO; REME15TA PO; SENN8.6T81 PO; VITA2000 PO; VITA500012 PO; WALKER/ADULT/FO1 MIS; XARE10TA PO
[2017-07-19] MEDS ORDERED: LOPE-1 PO (10:40)
[2017-07-19] MEDS ORDERED: VITA500012 PO (10:40)
[2017-07-19] MEDS ORDERED: FERR325T18 PO (10:40)
[2017-07-19] MEDS ORDERED: CALC1TAB87 PO (10:40)
[2017-07-19] MEDS ORDERED: ZOFR4TAB PO (10:40)
[2017-07-19] MEDS ORDERED: CEFEPIME INJ 2,000 MG in SODIUM CHLORIDE 0.9% INJ 100 ML IV STA (10:44)
[2017-07-19] MEDS ORDERED: VANCOMYCIN INJ 1,000 MG in SODIUM CHLOR 0.9% 250 ML INJ 250 ML IV STA (10:44)
[2017-07-19] MEDS ORDERED: SODIUM CHLOR 0.9% 1000 ML INJ 1,000 ML IV ONE ×2 (10:45→14:30)
--- NOTE | 2017-07-19 10:57 | PD ---
HPI Chief Complaint: Altered Mental Status Time Seen by Provider: 10:44 Travel History International Travel<30 days: No Contact w/Intl Traveler<30days: No Traveled to known affect area: No History of Present Illness HPI 87-year-old male patient with history of dementia, Sissy mcmahan, presents to the ER from group home for altered mental status. Apparently they had done a workup at the facility and found out that he had leukocytosis of uncertain etiology, started on Levaquin last night. He is fairly disoriented and not able to give me any further history. Patient is sent in for altered mental status. Modifying Factors: None Associated Signs & Symptoms: Altered mental status, leukocytosis Risk Factors: Elderly group home patient PFSH Past Medical History Atrial Fibrillation: Yes Cardiovascular Problems: Yes Dementia: Yes GERD: Yes Hypertension: Yes Past Surgical History Cardiac Surgery: Yes (FROM ) Social History Alcohol Use: No Tobacco Use: No Substance Use: No Allergies-Medications (Allergen,Severity, Reaction): Coded Allergies: Penicillins (Verified Allergy, Severe, 07/19/17) Reported Meds & Prescriptions Reported Meds & Active Scripts Active Calcium 600+D 200 (Calcium Carbonate-Vitamin D) 600-200 Mg-Unit Tab 1 Tab PO BID 30 Days Vitamin D3 (Cholecalciferol) 2,000 Unit Cap 2,000 Units PO DAILY Xarelto (Rivaroxaban) 10 Mg Tab 10 Mg PO DAILY Hydrocodone-Acetaminophen 7.5 Mg-325 Mg Tab 1 Tab PO Q4H PRN Walker/Adult/Folding (Device) 1 Mis Mis Ea .ROUTE DIRECTED Reported Zofran (Ondansetron HCl) 4 Mg Tab 4 Mg PO Q12HR PRN Ergocalciferol 50,000 Unit Cap 50,000 Units PO Q7D Imodium A-D (Loperamide HCl) 2 Mg Capsule 2 Mg PO DIRECTED PRN One capsule after each loose stool. Not to exceed 8 tablets per day. Ferrous Sulfate 325 Mg (65 Mg Iron) Tablet 325 Mg PO DAILY Donepezil 10 Mg Tab 10 Mg PO HS Remeron (Mirtazapine) 15 Mg Tab 15 Mg PO HS Sennosides 8.6 Mg Tab 8.6 Mg PO HS Metoprolol Tartrate 25 Mg Tab 25 Mg PO BID Review of Systems ROS Limitations: Altered Mental Status Physical Exam Narrative GENERAL: Well-developed elderly white male patient currently in moderate distress. Fairly agitated. Oriented to self. SKIN: Focused skin assessment warm/dry. HEAD: Atraumatic. Normocephalic. EYES: Pupils equal and round. No scleral icterus. No injection or drainage. ENT: No nasal bleeding or discharge. Mucous membranes pink and moist. NECK: Trachea midline. No JVD, flat veins. CARDIOVASCULAR: Regular rate and rhythm. No murmur appreciated. RESPIRATORY: No accessory muscle use. Clear to auscultation. Breath sounds equal bilaterally. GASTROINTESTINAL: Abdomen soft, non-tender, nondistended. Hepatic and splenic margins not palpable. MUSCULOSKELETAL: No obvious deformities. No clubbing. No cyanosis. No edema. NEUROLOGICAL: Awake but not oriented. No obvious cranial nerve deficits. Motor grossly within normal limits. Normal speech. PSYCHIATRIC: Not oriented; insight and judgment poor. Data Data Last Documented VS Vital Signs Date Time Temp Pulse Resp B/P (MAP) Pulse Ox O2 Delivery O2 Flow Rate FiO2 07/19/17 12:59 140 113/75 (88) 07/19/17 11:26 98 Room Air 07/19/17 10:31 100.3 07/19/17 10:21 20 Orders Orders Sepsis Workup Initiated (07/19/17 ) Complete Blood Count With Diff (07/19/17 10:24) Comprehensive Metabolic Panel (07/19/17 10:24) Prothrombin Time / Inr (Pt) (07/19/17 10:24) Act Partial Throm Time (Ptt) (07/19/17 10:24) Lactic Acid Sepsis Protocol (07/19/17 10:24) Magnesium (Mg) (07/19/17 10:24) Ckmb (Isoenzyme) Profile (07/19/17 10:24) Troponin I (07/19/17 10:24) Urinalysis - C+S If Indicated (07/19/17 10:24) Blood Culture (07/19/17 10:24) Chest, Single Ap (07/19/17 10:24) Blood Glucose (07/19/17 10:24) Ecg Monitoring (07/19/17 10:24) Iv Access Insert/Monitor (07/19/17 10:24) Oximetry (07/19/17 10:24) Oxygen Administration (07/19/17 10:24) Sodium Chlor 0.9% 1000 Ml Inj (Ns 1000 M (07/19/17 10:45) Vancomycin Inj (Vancomycin Inj) (07/19/17 10:44) Cefepime Inj (Maxipime Inj) (07/19/17 10:44) Ct Brain W/O Iv Contrast(Rout) (07/19/17 10:46) Urinary Catheter Insert/Apply (07/19/17 10:47) Urine Culture (07/19/17 10:59) CKMB (07/19/17 10:50) CKMB% (07/19/17 10:50) Ct Abd/Pel W/O Iv Contrast (07/19/17 12:06) Electrocardiogram (07/19/17 10:20) Admit Order (Ed Use Only) (07/19/17 13:05) Labs Laboratory Tests Test 07/19/17 10:50 07/19/17 10:59 White Blood Count 21.8 TH/MM3 Red Blood Count 3.36 MIL/MM3 Hemoglobin 9.5 GM/DL Hematocrit 30.6 % Mean Corpuscular Volume 91.2 FL Mean Corpuscular Hemoglobin 28.4 PG Mean Corpuscular Hemoglobin Concent 31.1 % Red Cell Distribution Width 17.0 % Platelet Count 190 TH/MM3 Mean Platelet Volume 8.6 FL Neutrophils (%) (Auto) 91.7 % Lymphocytes (%) (Auto) 4.4 % Monocytes (%) (Auto) 3.6 % Eosinophils (%) (Auto) 0.1 % Basophils (%) (Auto) 0.2 % Neutrophils # (Auto) 20.0 TH/MM3 Lymphocytes # (Auto) 0.9 TH/MM3 Monocytes # (Auto) 0.8 TH/MM3 Eosinophils # (Auto) 0.0 TH/MM3 Basophils # (Auto) 0.0 TH/MM3 CBC Comment DIFF FINAL Differential Comment Prothrombin Time 15.5 SEC Prothromb Time International Ratio 1.5 RATIO Activated Partial Thromboplast Time 31.7 SEC Blood Urea Nitrogen 91 MG/DL Creatinine 3.60 MG/DL Random Glucose 112 MG/DL Total Protein 6.6 GM/DL Albumin 2.2 GM/DL Calcium Level 9.4 MG/DL Magnesium Level 2.1 MG/DL Alkaline Phosphatase 119 U/L Aspartate Amino Transf (AST/SGOT) 306 U/L Alanine Aminotransferase (ALT/SGPT) 97 U/L Total Bilirubin 1.3 MG/DL Sodium Level 147 MEQ/L Potassium Level 5.8 MEQ/L Chloride Level 110 MEQ/L Carbon Dioxide Level 19.1 MEQ/L Anion Gap 18 MEQ/L Estimat Glomerular Filtration Rate 16 ML/MIN Lactic Acid Level 9.0 mmol/L Total Creatine Kinase 620 U/L Creatine Kinase MB 7.6 NG/ML Creatine Kinase MB % 1.2 % Troponin I 0.16 NG/ML Urine Color DARK-YELLOW Urine Turbidity HAZY Urine pH 5.0 Urine Specific [place] 1.020 Urine Protein TRACE mg/dL Urine Glucose (UA) NEG mg/dL Urine Ketones NEG mg/dL Urine Occult Blood LARGE Urine Nitrite NEG Urine Bilirubin NEG Urine Urobilinogen LESS THAN 2.0 MG/DL Urine Leukocyte Esterase NEG Urine RBC 1 /hpf Urine WBC 3 /hpf Urine Amorphous Sediment OCC Urine Bacteria RARE /hpf Urine Hyaline Casts 1 /lpf Microscopic Urinalysis Comment CATH-CULTURE IND MDM Medical Decision Making Medical Screen Exam Complete: Yes Emergency Medical Condition: Yes Medical Record Reviewed: Yes Interpretation(s) EKG shows A. fib with RVR at a rate of 150 bpm. No signs of acute ST-T changes. Laboratory Tests Test 07/19/17 10:50 07/19/17 10:59 White Blood Count 21.8 TH/MM3 (4.0-11.0) Red Blood Count 3.36 MIL/MM3 (4.50-5.90) Hemoglobin 9.5 GM/DL (13.0-17.0) Hematocrit 30.6 % (39.0-51.0) Mean Corpuscular Hemoglobin Concent 31.1 % (32.0-36.0) Neutrophils (%) (Auto) 91.7 % (16.0-70.0) Lymphocytes (%) (Auto) 4.4 % (9.0-44.0) Neutrophils # (Auto) 20.0 TH/MM3 (1.8-7.7) Lymphocytes # (Auto) 0.9 TH/MM3 (1.0-4.8) Prothrombin Time 15.5 SEC (9.8-11.6) Activated Partial Thromboplast Time 31.7 SEC (24.3-30.1) Blood Urea Nitrogen 91 MG/DL (7-18) Creatinine 3.60 MG/DL (0.60-1.30) Random Glucose 112 MG/DL (74-106) Albumin 2.2 GM/DL (3.4-5.0) Alkaline Phosphatase 119 U/L (45-117) Aspartate Amino Transf (AST/SGOT) 306 U/L (15-37) Alanine Aminotransferase (ALT/SGPT) 97 U/L (12-78) Total Bilirubin 1.3 MG/DL (0.2-1.0) Sodium Level 147 MEQ/L (136-145) Potassium Level 5.8 MEQ/L (3.5-5.1) Chloride Level 110 MEQ/L (98-107) Carbon Dioxide Level 19.1 MEQ/L (21.0-32.0) Anion Gap 18 MEQ/L (5-15) Estimat Glomerular Filtration Rate 16 ML/MIN (>89) Lactic Acid Level 9.0 mmol/L (0.4-2.0) Total Creatine Kinase 620 U/L (39-308) Creatine Kinase MB 7.6 NG/ML (0.5-3.6) Troponin I 0.16 NG/ML (0.02-0.05) Urine Color DARK-YELLOW (YELLW/STRAW) Urine Turbidity HAZY (CLEAR) Urine Occult Blood LARGE (NEG) Urine Bacteria RARE /hpf (NONE) Last [address] 07/19/17 1046 Signed Impressions: Service Date/Time: Wednesday, July 19, 2017 11:31 - CONCLUSION: No acute intracranial findings. Chronic ischemic findings. Fratnz Schulte MD Chest X-Ray 07/19/17 1024 Signed Impressions: Service Date/Time: Wednesday, July 19, 2017 10:48 - CONCLUSION: Mild bilateral interstitial lower lung opacity. Differential diagnosis includes mild pulmonary edema atelectasis, and infection. Frantz Schulte MD Differential Diagnosis Sepsis versus dehydration versus metabolic issues versus acute intra-cranial processes Narrative Course Considering history, there is great concern for sepsis. IV fluids were given. Antibiotics were initiated after cultures were drawn. Lab work is confirming significant leukocytosis and concern of sepsis. He appears to be significantly dehydrated with worsening renal function as well. At this point, my plan would be to admit the patient for further evaluation and treatment. Case was discussed with Dr. Solomon for admission. Aggregate critical care time was 35 minutes. Time to perform other separately billable procedures was not included in the critical care time. My time did not include minutes spent treating any other patients simultaneously or on activities that did not directly contribute to the patient's treatment. The services I provided to this patient were to treat and/or prevent clinically significant deterioration that could result in: Septic shock, acute renal failure, worsening dysrhythmia, I provided critical care services requiring my management, as noted below: Chart data review, documentation time, medication orders and management, vital sign assessments/reviewing monitor data, ordering and reviewing lab tests, ordering and interpreting/reviewing x-rays and diagnostic studies, care of the patient and discussion of the patient with the admitting physicians. Diagnosis Primary Impression: Atrial fibrillation with RVR Additional Impressions: Severe sepsis Acute renal failure Admitting Information Admitting Physician Requests: it Gabriel Merino MD Jul 19, 2017 10:57
[2017-07-19 11:16] LABS: BASOPHIL % 0.2 % (0.0-2.0); EOSINOPHIL % 0.1 % (0.0-4.0); HEMATOCRIT 30.6 % (39.0-51.0); HEMOGLOBIN 9.5 GM/DL (13.0-17.0); LYMPH % 4.4 % (9.0-44.0); LYMPHOCYTE # 0.9 TH/MM3 (1.0-4.8); MEAN CELL VOLUME 91.2 FL (80.0-100.0); MEAN CORPUSCULAR HEMOGLOBIN 28.4 PG (27.0-34.0); MEAN CORPUSCULAR HGB CONC 31.1 % (32.0-36.0); MEAN PLATELET VOLUME 8.6 FL (7.0-11.0); MONO % 3.6 % (0.0-8.0); MONOCYTE # 0.8 TH/MM3 (0-0.9); NEUT % 91.7 % (16.0-70.0); PLATELET COUNT 190 TH/MM3 (150-450); RED BLOOD COUNT 3.36 MIL/MM3 (4.50-5.90); WHITE BLOOD COUNT 21.8 TH/MM3 (4.0-11.0)
--- NOTE | 2017-07-19 11:26 | RADRPT ---
EXAM DATE/TIME: 07/19/2017 10:48 [facility] COMPARISON: CHEST SINGLE AP, June 11, 2017, 19:32. INDICATIONS : Fever MEDICAL HISTORY : None. SURGICAL HISTORY : CABG. ENCOUNTER: Initial ACUITY: 1 day PAIN SCORE: Non-responsive. LOCATION: Bilateral chest FINDINGS: Single AP view of the chest. Median sternotomy wires are present. Mild bilateral mid to lower lung zo ne opacity and mild pulmonary vasculature indistinctness. No evidence of pleural effusion or pneumoth orax. Cardiomediastinal silhouette unchanged. CONCLUSION: Mild bilateral interstitial lower lung opacity. Differential diagnosis includes mild pulmonary edema atelectasis, and infection. Frantz Schulte MD on July 19, 2017 at 11:22 Board Certified Radiologist. This report was verified electronically.
[2017-07-19 11:27] LABS: INTERNATIONAL NORMALIZED RATIO 1.5 RATIO; PROTHROMBIN TIME - PATIENT 15.5 SEC (9.8-11.6)
[2017-07-19 11:28] LABS: AMORPHOUS SEDIMENT, URINE OCC; BACTERIA, URINE RARE /hpf; BILIRUBIN, URINE NEG (NEG); BLOOD, URINE LARGE (NEG); GLUCOSE,URINE NEG (NEG); HYALINE CAST, URINE 1 /lpf (RARE); KETONE, URINE NEG (NEG); NITRITE,URINE NEG (NEG); URINE COLOR DARK-YELLOW (YELLW/STRAW); URINE LEUKOCYTE ESTERASE NEG (NEG)
[2017-07-19 11:34] LABS: ALBUMIN 2.2 GM/DL (3.4-5.0); ALT (GPT) 97 U/L (12-78); AST (GOT) 306 U/L (15-37); BICARBONATE 19.1 MEQ/L (21.0-32.0); BLOOD UREA NITROGEN 91 MG/DL (7-18); CALCIUM 9.4 MG/DL (8.5-10.1); CHLORIDE 110 MEQ/L (98-107); GLOMERULAR FILTRATION RATE 16 ML/MIN (>89); GLUCOSE,RANDOM 112 MG/DL (74-106); MAGNESIUM 2.1 MG/DL (1.5-2.5); SODIUM (NA) 147 MEQ/L (136-145)
[2017-07-19 11:38] LABS: ALKALINE PHOSPHATASE 119 U/L (45-117); TOTAL BILIRUBIN ADULT 1.3 MG/DL (0.2-1.0); TOTAL PROTEIN 6.6 GM/DL (6.4-8.2); TROPONIN I 0.16 NG/ML (0.02-0.05)
--- NOTE | 2017-07-19 11:57 | RADRPT ---
EXAM DATE/TIME: 07/19/2017 11:31 [facility] COMPARISON: CT BRAIN W/O CONTRAST, June 11, 2017, 20:06. INDICATIONS : Altered mental status. RADIATION DOSE: 36.08 CTDIvol (mGy) MEDICAL HISTORY : Dementia. Hypertension. Cardiovascular disease SURGICAL HISTORY : None. ENCOUNTER: Initial ACUITY: 1 day PAIN SCALE: 10/10 LOCATION: Bilateral head TECHNIQUE: Multiple contiguous axial images were obtained of the head. Using automated exposure control and adj ustment of the mA and/or kV according to patient size, radiation dose was kept as low as reasonably a chievable to obtain optimal diagnostic quality images. DICOM format image data is available electro nically for review and comparison. FINDINGS: CEREBRUM: Diffuse prominence of the ventricles, sulci, and cisterns indicating diffuse atrophy. Right frontal l obe and right parietal lobe encephalomalacia. No evidence of acute intracranial hemorrhage or extra-a xial fluid collection. No evidence of acute infarct. No intracranial mass lesion. POSTERIOR FOSSA: The cerebellum and brainstem are intact. The 4th ventricle is midline. The cerebellopontine angle i s unremarkable. EXTRACRANIAL: The visualized portion of the orbits is intact. SKULL: The calvaria is intact. No evidence of skull fracture. CONCLUSION: No acute intracranial findings. Chronic ischemic findings. Frantz Schulte MD on July 19, 2017 at 11:53 Board Certified Radiologist. This report was verified electronically.
--- NOTE | 2017-07-19 13:18 | RADRPT ---
EXAM DATE/TIME: 07/19/2017 12:40 [facility] COMPARISON: No previous studies available for comparison. INDICATIONS : Leukocytosis of unknown etiology. ORAL CONTRAST: No oral contrast ingested. RADIATION DOSE: 8.81 CTDIvol (mGy) ; Patient motion MEDICAL HISTORY : Gastroesophageal reflux disease. Cardiovascular disease Dementia.Hypertension. SURGICAL HISTORY : None. ENCOUNTER: Initial ACUITY: 1 day PAIN SCALE: Non-responsive LOCATION: upper quadrant TECHNIQUE: Volumetric scanning of the abdomen and pelvis was performed. Using automated exposure control and ad justment of the mA and/or kV according to patient size, radiation dose was kept as low as reasonably achievable to obtain optimal diagnostic quality images. DICOM format image data is available electro nically for review and comparison. FINDINGS: LOWER LUNGS: Consolidation in both lower lobes with air bronchograms. There is no effusion. Patient status post me cookie sternotomy and heart size is moderately enlarged. A transvenous pacer is present. LIVER: Homogeneous density without lesion. There is no dilation of the biliary tree. No calcified gallston es. There is calcifications present. The gallbladder is at the upper limits of normal in size. SPLEEN: Normal size without lesion. PANCREAS: Within normal limits. KIDNEYS: Normal in size and shape. There is no definite solid mass, stone, or hydronephrosis. There are multi ple bilateral benign appearing renal cysts on the right contains calcification along the wall. Vascul ar calcifications are present. ADRENAL GLANDS: Within normal limits. VASCULAR: The patient is status post abdominal aortic aneurysm stent graft placement. BOWEL/MESENTERY: Is a nonspecific, nonobstructive bowel gas pattern with multiple loops of nondilated air-containing s mall bowel with multiple air-fluid levels. There is motion artifact limiting the sensitivity. No oral contrast was given. There is a moderate to large amount of stool in the distal colon. ABDOMINAL WALL: Within normal limits. RETROPERITONEUM: There is no lymphadenopathy. BLADDER: No wall thickening or mass. REPRODUCTIVE: Within normal limits. INGUINAL: There is no lymphadenopathy or hernia. MUSCULOSKELETAL: Status post left hip arthroplasty with streak artifact. There is osteopenia, degenerative change and mild scoliosis. CONCLUSION: 1. Nonobstructive bowel gas pattern which could represent a mild ileus. There is a moderate to large amount of stool in the distal colon which could indicate constipation. 2. Dense consolidation in both lower lobes concerning for pneumonia. 3. The gallbladder is at the upper limits of normal in size. 4. Status post aortic stent graft placement. Young Armstrong MD on July 19, 2017 at 13:06 Board Certified Radiologist. This report was verified electronically.
--- NOTE | 2017-07-19 13:44 | HHI.HP ---
[facility] Service Critical Care Medicine Primary Care Physician Ashok Wilks M.D. Admission Diagnosis severe sepsis/A. fib with RVR Diagnosis: (1) Hypoalbuminemia Diagnosis: Secondary (2) Elevated CPK Diagnosis: Secondary (3) Elevated troponin Diagnosis: Secondary (4) Anemia Diagnosis: Principal (5) History of endovascular stent graft for abdominal aortic aneurysm Diagnosis: Secondary (6) Sacral decubitus ulcer Diagnosis: Principal (7) Heel ulcer Diagnosis: Principal (8) Alzheimer's dementia Diagnosis: Principal (9) Depression Diagnosis: Principal (10) Elevated partial thromboplastin time (PTT) Diagnosis: Principal (11) Elevated INR Diagnosis: Principal (12) Acute hypernatremia Diagnosis: Principal (13) Gastroesophageal reflux disease Diagnosis: Principal (14) Chronic anticoagulation Diagnosis: Secondary (15) Acute kidney injury Diagnosis: Principal (16) Lactic acidosis Diagnosis: Principal (17) Elevated levels of transaminase & lactic acid dehydrogenase Diagnosis: Principal (18) Constipation Diagnosis: Principal (19) Severe sepsis Diagnosis: Principal (20) Atrial fibrillation with RVR Diagnosis: Principal (21) Healthcare-associated pneumonia Diagnosis: Principal Chief Complaint: Altered mental status Travel History International Travel<30 Days: No Contact w/Intl Traveler <30 Da: No Traveled to Known Affected Are: No Sepsis Criteria SIRS Criteria (2 or more): Heart rate over 90, WBC > 96252, < 4000 or > 10% bands Sepsis Criteria (SIRS+source): Infect source susp/known Severe Sepsis (+one): Organ Dysfunction, Lactate >2 Septic Shock Criteria: Lactic acid >=4 Multiple Organ Dysfunction Syn: Evidence -2 organs failing Criteria Outcome: Meets multiple organ dys. criteria History of Present Illness 87-year-old male. Date of admission 07/19/2017. Past medical history includes dementia disorder, chronic atrial fibrillation, hypertension, chronic anticoagulation, gastroesophageal reflux disease, constipation. Patient is a resident of [facility]. Patient presents to [facility] after subacute onset of fevers, altered mental status. Patient was transported per group home request. Patient is noted to be in A. fib with RVR heart rate in the 140s. Pelvic revealed a creatinine of 3.6. Potassium of 5.8. White blood cell count 21, 000. Elevated INR and PTT, lactic acidosis of 9.0, elevated transaminases, elevated CPK and troponin and low albumin. CT abdomen/pelvis revealed fecal impaction, nonobstructive bowel gas pattern in an old aortic graft stent. Chest x-ray revealed bilateral lower lobe pneumonia. Patient received cefepime and vancomycin in the emergency department. We are asked to admit the patient. He is currently awake and pleasantly confused on 3 L nasal cannula Review of Systems ROS Limitations: Altered Mental Status Past Family Social History Allergies: Coded Allergies: Penicillins (Verified Allergy, Severe, 07/19/17) Past Medical History Dementia disorder NOS Atrial fibrillation currently in RVR Hypertension Osteoarthritis Gastroesophageal reflux disease Sacral decubitus ulcer Osteoporosis Past Surgical History Left hip hemiarthroplasty Aortic stent graft Reported Medications Active Calcium 600+D 200 (Calcium Carbonate-Vitamin D) 600-200 Mg-Unit Tab 1 Tab PO BID 30 Days Vitamin D3 (Cholecalciferol) 2,000 Unit Cap 2,000 Units PO DAILY Xarelto (Rivaroxaban) 10 Mg Tab 10 Mg PO DAILY Hydrocodone-Acetaminophen 7.5 Mg-325 Mg Tab 1 Tab PO Q4H PRN Walker/Adult/Folding (Device) 1 Mis Mis Ea .ROUTE DIRECTED Reported Zofran (Ondansetron HCl) 4 Mg Tab 4 Mg PO Q12HR PRN Ergocalciferol 50,000 Unit Cap 50,000 Units PO Q7D Imodium A-D (Loperamide HCl) 2 Mg Capsule 2 Mg PO DIRECTED PRN One capsule after each loose stool. Not to exceed 8 tablets per day. Ferrous Sulfate 325 Mg (65 Mg Iron) Tablet 325 Mg PO DAILY Donepezil 10 Mg Tab 10 Mg PO HS Remeron (Mirtazapine) 15 Mg Tab 15 Mg PO HS Sennosides 8.6 Mg Tab 8.6 Mg PO HS Metoprolol Tartrate 25 Mg Tab 25 Mg PO BID Active Ordered Medications Reviewed in EMR Family History Patient is demented. Not the finding past medical records available. Social History No documentation tobacco, alcohol or intravenous drug use Physical Exam Vital Signs Vital Signs Date Time Temp Pulse Resp B/P (MAP) Pulse Ox O2 Delivery O2 Flow Rate FiO2 07/19/17 12:59 140 113/75 (88) 07/19/17 11:26 98 Room Air 07/19/17 11:01 129/71 (90) 07/19/17 10:31 100.3 96/60 (72) 07/19/17 10:21 151 20 100 Physical Exam GENERAL: 87-year-old male critically ill currently resting in bed SKIN:: Dry. Bilateral stage I heel and stage I sacral decubitus ulcer HEAD: Atraumatic. Normocephalic. EYES: Pupils equal and round about 3 mm bilaterally and reactive. No scleral icterus. No injection or drainage. ENT: No nasal bleeding or discharge. Mucous membranes pink and moist. NECK: Trachea midline. No JVD. CARDIOVASCULAR: Tachycardia, IR. S1, S2 no S4. Without murmur. RESPIRATORY: As crackles appreciated throughout lung aguayo anteriorly and posteriorly. Breath sounds equal bilaterally. GASTROINTESTINAL: Abdomen soft, non-tender, nondistended. Hypoactive bowel sounds are appreciated MUSCULOSKELETAL: Extremities without difficulty and peripheral edema. No obvious deformities. NEUROLOGICAL: Awake and alert. No obvious cranial nerve deficits. Moves all 4 extremities spontaneously. Follows simple commands. Laboratory Laboratory Tests Test 07/19/17 10:50 07/19/17 10:59 White Blood Count 21.8 Red Blood Count 3.36 Hemoglobin 9.5 Hematocrit 30.6 Mean Corpuscular Volume 91.2 Mean Corpuscular Hemoglobin 28.4 Mean Corpuscular Hemoglobin Concent 31.1 Red Cell Distribution Width 17.0 Platelet Count 190 Mean Platelet Volume 8.6 Neutrophils (%) (Auto) 91.7 Lymphocytes (%) (Auto) 4.4 Monocytes (%) (Auto) 3.6 Eosinophils (%) (Auto) 0.1 Basophils (%) (Auto) 0.2 Neutrophils # (Auto) 20.0 Lymphocytes # (Auto) 0.9 Monocytes # (Auto) 0.8 Eosinophils # (Auto) 0.0 Basophils # (Auto) 0.0 CBC Comment DIFF FINAL Differential Comment Prothrombin Time 15.5 Prothromb Time International Ratio 1.5 Activated Partial Thromboplast Time 31.7 Blood Urea Nitrogen 91 Creatinine 3.60 Random Glucose 112 Total Protein 6.6 Albumin 2.2 Calcium Level 9.4 Magnesium Level 2.1 Alkaline Phosphatase 119 Aspartate Amino Transf (AST/SGOT) 306 Alanine Aminotransferase (ALT/SGPT) 97 Total Bilirubin 1.3 Sodium Level 147 Potassium Level 5.8 Chloride Level 110 Carbon Dioxide Level 19.1 Anion Gap 18 Estimat Glomerular Filtration Rate 16 Lactic Acid Level 9.0 Total Creatine Kinase 620 Creatine Kinase MB 7.6 Creatine Kinase MB % 1.2 Troponin I 0.16 Urine Color DARK-YELLOW Urine Turbidity HAZY Urine pH 5.0 Urine Specific [place] 1.020 Urine Protein TRACE Urine Glucose (UA) NEG Urine Ketones NEG Urine Occult Blood LARGE Urine Nitrite NEG Urine Bilirubin NEG Urine Urobilinogen LESS THAN 2.0 Urine Leukocyte Esterase NEG Urine RBC 1 Urine WBC 3 Urine Amorphous Sediment OCC Urine Bacteria RARE Urine Hyaline Casts 1 Microscopic Urinalysis Comment CATH-CULTURE IND Date/Time Source Procedure Growth Status 07/19/17 10:50 Blood Peripheral Aerobic Blood Culture Pending Received 07/19/17 10:50 Blood Peripheral Anaerobic Blood Culture Pending Received 07/19/17 10:59 Urine Catheterized Urine Urine Culture Pending Received Result Diagram: 07/19/17 1050 07/19/17 1050 Imaging Last Impressions Abdomen/Pelvis CT 07/19/17 1206 Signed Impressions: Service Date/Time: Wednesday, July 19, 2017 12:40 - CONCLUSION: 1. Nonobstructive bowel gas pattern which could represent a mild ileus. There is a moderate to large amount of stool in the distal colon which could indicate constipation. 2. Dense consolidation in both lower lobes concerning for pneumonia. 3. The gallbladder is at the upper limits of normal in size. 4. Status post aortic stent graft placement. Young Armstrong MD Head CT 07/19/17 1046 Signed Impressions: Service Date/Time: Wednesday, July 19, 2017 11:31 - CONCLUSION: No acute intracranial findings. Chronic ischemic findings. Frantz Schulte MD Chest X-Ray 07/19/17 1024 Signed Impressions: Service Date/Time: Wednesday, July 19, 2017 10:48 - CONCLUSION: Mild bilateral interstitial lower lung opacity. Differential diagnosis includes mild pulmonary edema atelectasis, and infection. Frantz Schulte MD Septic Shock Reassessment Septic shock perfusion: reassessment completed Caprini VTE Risk Assessment Caprini VTE Risk Assessment: Mod/High Risk (score >= 2) Caprini Risk Assessment Model Point Value = 1 Point Value = 2 Point Value = 3 Point Value = 5 Age 41-60 Minor surgery BMI > 25 kg/m2 Swollen legs Varicose veins or History of unexplained or recurrent spontaneous Oral contraceptives or hormone replacement Sepsis (< 1 month) Serious lung disease, including pneumonia (< 1 month) Abnormal pulmonary function Acute myocardial infarction Congestive heart failure (< 1 month) History of inflammatory bowel disease Medical patient at bed rest Age 61-74 Arthroscopic surgery Major open surgery (> 45 min) Laparoscopic surgery (> 45 min) Malignancy Confined to bed (> 72 hours) Immobilizing plaster cast Central venous access Age >= 75 History of VTE Family history of VTE Factor V Leiden Prothrombin 49435H Lupus anticoagulant Anticardiolipin antibodies Elevated serum homocysteine Heparin-induced thrombocytopenia Other congenital or acquired thrombophilia Stroke (< 1 month) Elective arthroplasty Hip, pelvis, or leg fracture Acute spinal cord injury (< 1 month) Prophylaxis Regimen Total Risk Factor Score Risk Level Prophylaxis Regimen 0-1 Low Early ambulation 2 Moderate Order ONE of the following: *Sequential Compression Device (SCD) *Heparin 5000 units SQ BID 3-4 Higher Order ONE of the following medications: *Heparin 5000 units SQ TID *Enoxaparin/Lovenox 40 mg SQ daily (WT < 150 kg, CrCl > 30 mL/min) *Enoxaparin/Lovenox 30 mg SQ daily (WT < 150 kg, CrCl > 10-29 mL/min) *Enoxaparin/Lovenox 30 mg SQ BID (WT < 150 kg, CrCl > 30 mL/min) AND/OR *Sequential Compression Device (SCD) 5 or more Highest Order ONE of the following medications: *Heparin 5000 units SQ TID (Preferred with Epidurals) *Enoxaparin/Lovenox 40 mg SQ daily (WT < 150 kg, CrCl > 30 mL/min) *Enoxaparin/Lovenox 30 mg SQ daily (WT < 150 kg, CrCl > 10-29 mL/min) *Enoxaparin/Lovenox 30 mg SQ BID (WT < 150 kg, CrCl > 30 mL/min) AND *Sequential Compression Device (SCD) Assessment and Plan Assessment and Plan Neuro/Psych: Dementia disorder Acetaminophen 650 mg by mouth every 6 hours. Fever Hydrocodone/acetaminophen 5/325 one tablet every 4 hours when necessary pain 1-5 Morphine sulfate 2 mg IV every 8. Pain 6-10 Continued donepezil 10 mg daily for underlying dementia Continue mirtazapine 15 mg at night for depression CT brain revealed no acute intracranial findings CV: Severe sepsis with multisystem organ failure Atrial fibrillation with rapid ventricular response Lactic acidosis Elevated troponin History of endovascular aortic grafting Currently diltiazem drip titrated to keep heart rate less than 120 On metoprolol 25 mg by mouth twice a day Serial troponin every 6 hours 2. Check TSH Routine 2-D echocardiogram ordered Resp: Acute respiratory insufficiency secondary to health care associated pneumonia Nasal cannula to maintain saturations greater than equal to 92% Incentive spirometry while awake Albuterol/ipratropium aerosols every 6 hours with albuterol aerosols every 2 hours. Dyspnea Follow-up chest x-ray in a.m. GI: Elevated transaminases likely secondary to shock liver Gastroesophageal reflux disease Constipation with fecal impaction CT abdomen/pelvis revealed nonobstructive bowel gas pattern, stool in the rectum , bilateral lower lobe infiltrates in a endovascular aortic stent graft Check hepatitis panel : Mcconnell catheter for accurate I's and O's in a critically ill patient Endo: Sliding-scale insulin with Accu-Cheks before meals and at bedtime to maintain euglycemia Novulog Renal: Acute kidney injury Check renal ultrasound and urine electrolytes and eosinophils Avoid nephrotoxic drugs Monitor urine output Accurate I's and O's Aggressive hydration with crystalloid Heme: Leukocytosis Normocytic anemia Elevated INR/PTT - likely secondary to early DIC with pending fibrinogen Chronic Rivaroxaban use 10 mg daily Monitor CBC daily. Follow trends No indication for transfusion of blood products at this time Continue ferrous sulfate 325 mg by mouth daily ID: Received cefepime and vancomycin ED Day #1 vancomycin, aztreonam, levofloxacin and metronidazole Blood cultures 2, urine Legionella pneumococcal antigen, influenza and sputum all ordered. UA was negative though culture has been sent. No nitrates or leukocyte esterase MSK: Recent left hip hemiarthroplasty Continue cholecalciferol 2000 units daily PT evaluate and treat FEN: Hypernatremia Hyperkalemia Received calcium gluconate, D50, insulin, bicarbonate and Kayexalate. Recheck in 3 hours Switch to half-normal saline at 125 cc an hour Access: - Utilize peripheral IV. Central line if indicated Prophylaxis - GI - pantoprazole - DVT - SCDs/ holding Rivaroxaban today. Likely resume in a.m Critical Care: The total critical care time was 35 minutes. Time to perform other separately billable procedures was not included in the critical care time. Code Status Full code Discussed Condition With ED physician. Care plan discussed and all questions answered. Problem Qualifiers (1) Anemia: Qualified Codes: D64.9 - Anemia, unspecified (2) Sacral decubitus ulcer: Qualified Codes: L89.151 - Pressure ulcer of sacral region, stage 1 (3) Heel ulcer: Qualified Codes: L97.401 - Non-pressure chronic ulcer of unspecified heel and midfoot limited to breakdown of skin (4) Alzheimer's dementia: Qualified Codes: G30.0 - Alzheimer's disease with early onset; F02.80 - Dementia in other diseases classified elsewhere without behavioral disturbance (5) Depression: Qualified Codes: F32.9 - Major depressive disorder, single episode, unspecified (6) Gastroesophageal reflux disease: Qualified Codes: K21.9 - Gastro-esophageal reflux disease without esophagitis (7) Constipation: Qualified Codes: K59.00 - Constipation, unspecified Laurent Solomon MD Jul 19, 2017 13:44
[2017-07-19] MEDS ORDERED: ACETAMINOPHEN/HYDROcodone 325 MG/5 MG TAB PO PRN (13:45)
[2017-07-19] MEDS ORDERED: CHLORHEXIDINE GLUCONATE 2 % 1 PACK (2 CLOTHS) TOP PRN (13:45)
[2017-07-19] MEDS ORDERED: RESP: ALBUTEROL 2.5 MG/3 ML NEB (PRN) INH (13:45)
[2017-07-19] MEDS ORDERED: MAGNESIUM HYDROXIDE SUSP 30 ML CUP PO PRN (13:45)
[2017-07-19] MEDS ORDERED: BISACODYL 10 MG SUPP RECTAL PRN (13:45)
[2017-07-19] MEDS ORDERED: ACETAMINOPHEN 325 MG TAB PO PRN (13:45)
[2017-07-19] MEDS ORDERED: ONDANSETRON HCL 4 MG/2 ML VIAL IV PUSH PRN (13:45)
[2017-07-19] MEDS ORDERED: SENNOSIDES 8.6 MG TAB PO PRN (13:45)
[2017-07-19] MEDS ORDERED: LACTULOSE SYRUP 20 GM/30 ML CUP PO PRN (13:45)
[2017-07-19] MEDS ORDERED: SODIUM CHLORIDE 0.9% FLUSH 10 ML FLUSH IV FLUSH PRN (13:45)
[2017-07-19] MEDS ORDERED: MISCELLANEOUS NURSING INFORMATION XX SCH (13:45)
[2017-07-19] MEDS ORDERED: Vancomycin Consult Pharmacy 1 EA OTHER SCH (13:45)
[2017-07-19] MEDS ORDERED: SODIUM CHLOR 0.9% 1000 ML INJ 1,000 ML IV SCH (14:30)
[2017-07-19] MEDS ORDERED: DEXTROSE 50% IN WATER 50 ML VIAL(D50) IV PUSH PRN (14:45)
[2017-07-19] MEDS ORDERED: GLUCAGON 1 MG/ML VIAL OTHER PRN (14:45)
[2017-07-19] MEDS ORDERED: METHYLNALTREXONE BROMIDE 12 MG/0.6 ML VIAL SQ ONE (15:00)
[2017-07-19] MEDS ORDERED: CALCIUM GLUCONATE 10% 1 GM/10 ML VIAL SLOW IVP ONE (15:00)
[2017-07-19] MEDS ORDERED: INSULIN HUMAN REGULAR 1,000 UNITS/10 ML VIAL IV PUSH ONE (15:00)
[2017-07-19] MEDS ORDERED: SODIUM BICARBONATE 8.4% SOLN 50 MEQ/50 ML VIAL SLOW IVP ONE (15:00)
[2017-07-19] MEDS ORDERED: SODIUM POLYSTYRENE SULFONATE SUSP 15 GM/60 ML CUP PO ONE (15:00)
[2017-07-19] MEDS ORDERED: DILTIAZEM HCL 25 MG/5 ML VIAL IV PUSH ONE (15:00)
[2017-07-19] MEDS ORDERED: DEXTROSE 50% IN WATER 50 ML VIAL(D50) IV PUSH ONE (15:00)
[2017-07-19] MEDS ORDERED: GLYCERIN ADULT 2 GM SUPP RECTAL ONE (15:00)
[2017-07-19] MEDS: RESP: ALBUTEROL 2.5 MG/IPRATROPIUM 0.5 MG NEB (SCH) INH ×2 (15:16→22:37)
[2017-07-19] MEDS: SODIUM CHLOR 0.45% 1000 ML INJ 1,000 ML IV SCH ×2 (15:49→22:35)
[2017-07-19] MEDS: HEPARIN SODIUM - SQ 10,000 UNITS/ML VIAL SQ SCH (15:50)
[2017-07-19] MEDS: LACTULOSE SYRUP 20 GM/30 ML CUP PO SCH ×2 (17:28→21:00)
[2017-07-19] MEDS: DILTIAZEM INJ 125 MG in SODIUM CHLORIDE 0.9% INJ 100 ML IV PRN (17:28)
[2017-07-19] MEDS: metroNIDAZOLE 500 MG TAB PO SCH (17:29)
[2017-07-19] MEDS: LEVOFLOXACIN 500 MG PREMIX INJ 100 ML IV SCH (17:29)
[2017-07-19] MEDS: AZTREONAM INJ 1,000 MG in SODIUM CHLORIDE 0.9% INJ 100 ML IV SCH (18:44)
[2017-07-19 18:49] LABS: TROPONIN I 0.22 NG/ML (0.02-0.05)
[2017-07-19] MEDS: POLYETHYLENE GLYCOL 17 GM PKG PO SCH (21:00)
[2017-07-19] MEDS: INSULIN ASPART SUPPLEMENTAL SCALE SQ SCH (21:00)
[2017-07-19] MEDS: DOCUSATE SODIUM 50 MG/SENNA 8.6 MG TAB PO SCH (21:00)
[2017-07-19] MEDS: DONEPEZIL HCL 5 MG TAB PO SCH (21:01)
[2017-07-19] MEDS: MIRTAZAPINE 15 MG TAB PO SCH (21:01)
[2017-07-19] MEDS: METOPROLOL TARTRATE 25 MG TAB PO SCH (21:01)
[2017-07-19] MEDS: SODIUM CHLORIDE 0.9% FLUSH 10 ML FLUSH IV FLUSH SCH (21:02)
[2017-07-20] VITALS (14 sets, daily range): BP systolic 93–113; BP diastolic 51–69; PULSE 66–91; RESP 20–29; TEMP 97.9–98.1; O2SAT 93–100
[2017-07-20 00:22] LABS: TROPONIN I 0.25 NG/ML (0.02-0.05)
[2017-07-20] MEDS: metroNIDAZOLE 500 MG TAB PO SCH ×5 (00:31→20:10)
[2017-07-20 00:47] LABS: CREATININE, RANDOM URINE 103.5 MG/DL
[2017-07-20] MEDS ORDERED: SODIUM CHLORID 0.9% 500 ML INJ 500 ML IV ONE (01:00)
[2017-07-20] MEDS: DILTIAZEM INJ 125 MG in SODIUM CHLORIDE 0.9% INJ 100 ML IV PRN ×2 (01:27→12:48)
[2017-07-20] MEDS: RESP: ALBUTEROL 2.5 MG/IPRATROPIUM 0.5 MG NEB (SCH) INH ×4 (03:21→20:30)
[2017-07-20] MEDS: HEPARIN SODIUM - SQ 10,000 UNITS/ML VIAL SQ SCH ×2 (03:27→15:06)
[2017-07-20 03:56] LABS: AUTOMATED NEUTROPHIL # 9.4 TH/MM3 (1.8-7.7); BASOPHIL % 0.1 % (0.0-2.0); EOSINOPHIL # 0.1 TH/MM3 (0-0.4); EOSINOPHIL % 0.8 % (0.0-4.0); HEMATOCRIT 24.2 % (39.0-51.0); HEMOGLOBIN 7.9 GM/DL (13.0-17.0); LYMPHOCYTE # 0.6 TH/MM3 (1.0-4.8); MEAN CELL VOLUME 88.4 FL (80.0-100.0); MEAN CORPUSCULAR HGB CONC 32.8 % (32.0-36.0); MEAN PLATELET VOLUME 8.4 FL (7.0-11.0); MONO % 3.5 % (0.0-8.0); MONOCYTE # 0.4 TH/MM3 (0-0.9); NEUT % 89.6 % (16.0-70.0); PLATELET COUNT 138 TH/MM3 (150-450); RED BLOOD COUNT 2.74 MIL/MM3 (4.50-5.90); RED CELL DISTRIBUTION WIDTH 17.4 % (11.6-17.2); WHITE BLOOD COUNT 10.5 TH/MM3 (4.0-11.0)
[2017-07-20] MEDS: CHLORHEXIDINE GLUCONATE 2 % 1 PACK (2 CLOTHS) TOP SCH (04:00)
[2017-07-20 04:17] LABS: INTERNATIONAL NORMALIZED RATIO 1.7 RATIO; PROTHROMBIN TIME - PATIENT 17.1 SEC (9.8-11.6)
[2017-07-20 04:28] LABS: ALBUMIN 1.7 GM/DL (3.4-5.0); ALT (GPT) 365 U/L (12-78); AST (GOT) 810 U/L (15-37); BICARBONATE 24.6 MEQ/L (21.0-32.0); BLOOD UREA NITROGEN 96 MG/DL (7-18); CALCIUM 8.2 MG/DL (8.5-10.1); CHLORIDE 117 MEQ/L (98-107); CREATININE 3.46 MG/DL (0.60-1.30); GLOMERULAR FILTRATION RATE 17 ML/MIN (>89); GLUCOSE,RANDOM 97 MG/DL (74-106); MAGNESIUM 1.8 MG/DL (1.5-2.5); PHOSPHORUS 2.3 MG/DL (2.5-4.9); SODIUM (NA) 152 MEQ/L (136-145)
[2017-07-20 04:30] LABS: RANDOM VANCOMYCIN 12.2 COMMENT
[2017-07-20 04:47] LABS: ALKALINE PHOSPHATASE 93 U/L (45-117)
[2017-07-20] MEDS: SODIUM CHLOR 0.45% 1000 ML INJ 1,000 ML IV SCH ×2 (05:18→12:47)
[2017-07-20] MEDS: INSULIN ASPART SUPPLEMENTAL SCALE SQ SCH ×4 (08:00→20:10)
[2017-07-20] MEDS: PANTOPRAZOLE SOD 40 MG DELAYED RELEASE TAB PO SCH (08:49)
[2017-07-20] MEDS: CHOLECALCIFEROL (VIT D3) 1000 UNIT TAB PO SCH (08:49)
[2017-07-20] MEDS: DOCUSATE SODIUM 50 MG/SENNA 8.6 MG TAB PO SCH ×2 (08:49→20:10)
[2017-07-20] MEDS: FERROUS SULFATE 325 MG (65 MG ELEMENTAL IRON) TAB PO SCH (08:49)
[2017-07-20] MEDS: LACTULOSE SYRUP 20 GM/30 ML CUP PO SCH ×4 (08:49→20:09)
[2017-07-20] MEDS: METOPROLOL TARTRATE 25 MG TAB PO SCH ×2 (08:50→20:09)
[2017-07-20] MEDS: POLYETHYLENE GLYCOL 17 GM PKG PO SCH ×2 (08:50→20:09)
[2017-07-20] MEDS: SODIUM CHLORIDE 0.9% FLUSH 10 ML FLUSH IV FLUSH SCH ×2 (08:51→20:34)
[2017-07-20] MEDS: MORPHINE SULFATE 4 MG/ML INJ IV PUSH PRN (12:03)
[2017-07-20] MEDS: ARTIFICIAL TEARS OPTH SOLN 15 ML BTL EACH EYE SCH ×2 (12:03→18:00)
[2017-07-20] MEDS ORDERED: SODIUM CHLOR 0.9% 1000 ML INJ 1,000 ML IV ONE (14:45)
--- NOTE | 2017-07-20 15:19 | HHI.CCPN ---
Subjective Remarks/Hospital Course 87-year-old male. Date of admission 07/19/2017. Past medical history includes dementia disorder, chronic atrial fibrillation, hypertension, chronic anticoagulation, gastroesophageal reflux disease, constipation. Patient is a resident of [facility]. Patient presents to [facility] after subacute onset of fevers, altered mental status. [facility] was [facility]. Patient is noted to be in A. fib with RVR heart rate in the 140s. Pelvic revealed a creatinine of 3.6. Potassium of 5.8. White blood cell count 21, 000. Elevated INR and PTT, lactic acidosis of 9.0, elevated transaminases, elevated CPK and troponin and low albumin. CT abdomen/pelvis revealed fecal impaction, nonobstructive bowel gas pattern in an old aortic graft stent. Chest x-ray revealed bilateral lower lobe pneumonia. Patient received cefepime and vancomycin in the emergency department. We are asked to admit the patient. He is currently awake and pleasantly confused on 3 L nasal cannula Subjective 07/20: Currently presents a mask at 10 L. Afebrile. Coughing up copious amounts secretions. Remains encephalopathic. Objective Vital Signs Date Time Temp Pulse Resp B/P (MAP) Pulse Ox O2 Delivery O2 Flow Rate FiO2 07/20/17 14:00 72 07/20/17 12:48 99/55 07/20/17 12:00 98.1 29 93 07/20/17 07:47 Nasal Cannula 3.00 07/19/17 17:59 21 Intake and Output 07/20/17 07/20/17 07/21/17 08:00 16:00 00:00 Intake Total 2375 ml Output Total 50 ml Balance 2325 ml Result Diagram: 07/20/17 0335 07/20/17 0335 Other Results Microbiology Date/Time Source Procedure Growth Status 07/19/17 10:50 Blood Peripheral Aerobic Blood Culture - Preliminary NO GROWTH IN 1 DAY Resulted 07/19/17 10:50 Blood Peripheral Anaerobic Blood Culture - Preliminary NO GROWTH IN 1 DAY Resulted 07/19/17 19:54 Nasal Aspirate Influenza Types A,B Antigen (SHAHID) - Final NEGATIVE FOR FLU A AND B ANTIGEN.... Complete 07/19/17 10:59 Urine Catheterized Urine Urine Culture - Preliminary NO GROWTH IN 24 HOURS. Resulted Imaging Last Impressions Abdomen/Pelvis CT 07/19/17 1206 Signed Impressions: Service Date/Time: Wednesday, July 19, 2017 12:40 - CONCLUSION: 1. Nonobstructive bowel gas pattern which could represent a mild ileus. There is a moderate to large amount of stool in the distal colon which could indicate constipation. 2. Dense consolidation in both lower lobes concerning for pneumonia. 3. The gallbladder is at the upper limits of normal in size. 4. Status post aortic stent graft placement. Young Armstrong MD Head CT 07/19/17 1046 Signed Impressions: Service Date/Time: Wednesday, July 19, 2017 11:31 - CONCLUSION: No acute intracranial findings. Chronic ischemic findings. Frantz Schulte MD Chest X-Ray 07/19/17 1024 Signed Impressions: Service Date/Time: Wednesday, July 19, 2017 10:48 - CONCLUSION: Mild bilateral interstitial lower lung opacity. Differential diagnosis includes mild pulmonary edema atelectasis, and infection. Frantz Schulte MD Objective Remarks GENERAL: 87-year-old male critically ill currently resting in bed SKIN:: Dry. Bilateral stage I heel and stage I sacral decubitus ulcer HEAD: Atraumatic. Normocephalic. EYES: Pupils equal and round about 3 mm bilaterally and reactive. No scleral icterus. No injection or drainage. ENT: No nasal bleeding or discharge. Mucous membranes pink and moist. NECK: Trachea midline. No JVD. CARDIOVASCULAR: Tachycardia, IR. S1, S2 no S4. Without murmur. RESPIRATORY: As crackles appreciated throughout lung aguayo anteriorly and posteriorly. Breath sounds equal bilaterally. GASTROINTESTINAL: Abdomen soft, non-tender, nondistended. Hypoactive bowel sounds are appreciated MUSCULOSKELETAL: Extremities without difficulty and peripheral edema. No obvious deformities. NEUROLOGICAL: Awake and alert. No obvious cranial nerve deficits. Moves all 4 extremities spontaneously. Follows simple commands. A/P Assessment and Plan Neuro/Psych: Dementia disorder Acetaminophen 650 mg by mouth every 6 hours. Fever Hydrocodone/acetaminophen 5/325 one tablet every 4 hours when necessary pain 1-5 Morphine sulfate 2 mg IV every 8. Pain 6-10 Continued donepezil 10 mg daily for underlying dementia Continue mirtazapine 15 mg at night for depression CT brain revealed no acute intracranial findings CV: Severe sepsis with multisystem organ failure Atrial fibrillation with rapid ventricular response Lactic acidosis Elevated troponin History of endovascular aortic grafting Currently diltiazem drip titrated to keep heart rate less than 120. Weaned off today On metoprolol 25 mg by mouth twice a day Serial troponin every 6 hours 2. Elevated 0.25 Check TSH - 1.1 Routine 2-D echocardiogram ordered Resp: Acute respiratory insufficiency secondary to health care associated pneumonia Currently on simple mask at 8 L to maintain saturations greater than equal to 92 % Incentive spirometry while awake Albuterol/ipratropium aerosols every 6 hours with albuterol aerosols every 2 hours. Dyspnea Follow-up chest x-ray in a.m. 07/21 GI: Elevated transaminases likely secondary to shock liver Gastroesophageal reflux disease Constipation with fecal impaction Hypoalbuminemia CT abdomen/pelvis revealed nonobstructive bowel gas pattern, stool in the rectum , bilateral lower lobe infiltrates in a endovascular aortic stent graft Check hepatitis panel Pantoprazole for GI prophylaxis Docusate sodium/senna 1 tablet twice a day for bowel regimen Soapsuds enema, glycerin suppository 1 now. Large amount stool in colon. : Mcconnell catheter for accurate I's and O's in a critically ill patient Endo: Sliding-scale insulin with Accu-Cheks before meals and at bedtime to maintain euglycemia Novulog Renal: Acute kidney injury Urine eosinophils negative Avoid nephrotoxic drugs Monitor urine output is slowly picking up after multiple boluses Accurate I's and O's Aggressive hydration with crystalloid Heme: Thrombocytopenia Normocytic anemia Elevated INR/PTT - likely secondary to early DIC with pending fibrinogen Chronic Rivaroxaban use 10 mg daily Monitor CBC daily. Follow trends No indication for transfusion of blood products at this time Continue ferrous sulfate 325 mg by mouth daily ID: Received cefepime and vancomycin ED Day #1 vancomycin, aztreonam, levofloxacin and metronidazole Blood cultures 2, urine Legionella pneumococcal antigen, influenza and sputum all ordered. UA was negative though culture has been sent. No nitrates or leukocyte esterase MSK: Recent left hip hemiarthroplasty Continue cholecalciferol 2000 units daily PT evaluate and treat FEN: Hypernatremia Hyperkalemia Received calcium gluconate, D50, insulin, bicarbonate and Kayexalate. Recheck in 3 hours Switch to one quarter normal saline at 125 cc an hour Access: - Utilize peripheral IV. Central line if indicated Prophylaxis - GI - pantoprazole - DVT - SCDs/ holding Rivaroxaban today. Resume likely other type pharmacological prophylaxis when clinically indicated Critical Care: The total critical care time was 35 minutes. Time to perform other separately billable procedures was not included in the critical care time. Laurent Solomon MD Jul 20, 2017 15:19
[2017-07-20] MEDS ORDERED: ALBUMIN 5% INJ 500 ML IV ONE (15:30)
[2017-07-20] MEDS ORDERED: VANCOMYCIN 1,000 MG/NS 250 ML IV ONE ×2 (16:00)
[2017-07-20] MEDS ORDERED: METHYLNALTREXONE BROMIDE 12 MG/0.6 ML VIAL SQ ONE (16:00)
[2017-07-20] MEDS ORDERED: GLYCERIN ADULT 2 GM SUPP RECTAL ONE (16:00)
[2017-07-20] MEDS: AZTREONAM INJ 1,000 MG in SODIUM CHLORIDE 0.9% INJ 100 ML IV SCH (16:05)
[2017-07-20] MEDS: SODIUM CHLORIDE 23.4% INJ 38.5 MEQ in WATER STERILE FOR INJ 1,000 ML IV SCH (16:58)
--- NOTE | 2017-07-20 19:48 | ECHRPT ---
Indication: HYPERTENSIVE HEART DISEASE CONCLUSIONS The left ventricular systolic function is severely reduced with an estimated ejection fraction in th e range of 25-30%. Normal left ventricular size. Wall thickness is normal. There is global left ventricular dysfunction. oothe left atrial size is vwwipruc-uu-xhqzoxny dilated. kThe right atrial size is moderately dilated. Mild thickening of the mitral valve leaflets. Moderate mitral valve regurgitation. Moderate thickening of the aortic valve leaflets. Mild aortic valve stenosis. Aortic valve area is 0.85 cm. Aortic valve mean gradient is 10.8 mmHg. Low gradient aortic stenosis (low mean gradient may be related to cardiomyopathy or severe aortic stenosis). Consider dobutamine echocardiogram, if need to differentiate. There is mild tricuspid valve regurgitation. The estimated pulmonary arterial pressure is 96 mmHg. Mild pulmonary valve regurgitation. BP: / HR: Rhythm: Sinus MEASUREMENTS (Male / Female) Normal Values Technical Quality:Good 2D ECHO LV Diastolic Diameter PLAX 4.8 cm 4.2 - 5.9 / 3.9 - 5.3 cm LV Systolic Diameter PLAX 4.3 cm IVS Diastolic Thickness 1.1 cm 0.6 - 1.0 / 0.6 - 0.9 cm LVPW Diastolic Thickness 1.1 cm 0.6 - 1.0 / 0.6 - 0.9 cm LV Relative Wall Thickness 0.5 RV Internal Dim ED PLAX 2.4 cm LVOT Diameter 1.8 cm LA Systolic Diameter LX 4.4 cm 3.0 - 4.0 / 2.7 - 3.8 cm LV Ejection Fraction MOD 4C 23.1 % LV Ejection Fraction 4C AL 23.8 % M-MODE Aortic Root Diameter MM 2.8 cm LA Systolic Diameter MM 3.6 cm LA Ao Ratio MM 1.3 AV Cusp Separation MM 1.3 cm DOPPLER AV Peak Velocity 217.5 cm/s AV Peak Gradient 18.9 mmHg AV Mean Gradient 10.8 mmHg AV Velocity Time Integral 44.3 cm LVOT Peak Velocity 80.5 cm/s LVOT Peak Gradient 2.6 mmHg LVOT Velocity Time Integral 14.8 cm AV Area Cont Eq vti 0.8 cm AV Area Cont Eq pk 0.9 cm MV Area PHT 4.2 cm LV E' Lateral Velocity 10.0 cm/s LV E' Septal Velocity 8.7 cm/s TR Peak Velocity 465.0 cm/s TR Peak Gradient 86.5 mmHg Right Atrial Pressure 10.0 mmHg Pulmonary Artery Systolic Pressu 96.5 mmHg Right Ventricular Systolic Press 96.5 mmHg PV Peak Velocity 106.0 cm/s PV Peak Gradient 4.5 mmHg FINDINGS LEFT VENTRICLE The left ventricular systolic function is severely reduced with an estimated ejection fraction in th e range of 25-30%. Normal left ventricular size. Wall thickness is normal. There is global left ventricular dysfunction. RIGHT VENTRICLE Normal right ventricular size and systolic function. LEFT ATRIUM oothe left atrial size is wqvyjrht-bv-bpxbptir dilated. k RIGHT ATRIUM The right atrial size is moderately dilated. ATRIAL SEPTUM Normal atrial septal thickness without atrial level shunting by limited color doppler interrogation. AORTA The aortic root and proximal ascending aorta are normal in size on limited imaging. MITRAL VALVE Mild thickening of the mitral valve leaflets. Moderate mitral valve regurgitation. AORTIC VALVE Trileaflet aortic valve. Moderate thickening of the aortic valve leaflets. Mild aortic valve stenosis. Aortic valve area is 0.85 cm. Aortic valve mean gradient is 10.8 mmHg. Low gradient aortic stenosis (low mean gradient may be related to cardiomyopathy or severe aortic stenosis). TRICUSPID VALVE Structurally normal tricuspid valve. There is mild tricuspid valve regurgitation. The estimated pulmonary arterial pressure is 96 mmHg. PULMONARY VALVE Mild pulmonary valve regurgitation. VESSELS The inferior vena cava is normal in size. PERICARDIUM No pericardial effusion. Rhys Perez MD, FACC (Electronically Signed) Final Date:20 July 2017 19:48
[2017-07-20] MEDS: DONEPEZIL HCL 5 MG TAB PO SCH (20:09)
[2017-07-20] MEDS: MIRTAZAPINE 15 MG TAB PO SCH (20:10)
[2017-07-21] VITALS (12 sets, daily range): BP systolic 107–129; BP diastolic 56–87; PULSE 87–110; RESP 20–30; TEMP 98–98.4; O2SAT 82–100
--- NOTE | 2017-07-21 | RADRPT ---
EXAM DATE/TIME: 07/20/2017 22:12 [facility] COMPARISON: CT ABDOMEN & PELVIS W/O CONTRAST, July 19, 2017, 12:40. INDICATIONS : Increased Lab Values. MEDICAL HISTORY : Dementia. Cardiac disorder. A.FIB. GERD. Hypertension. SURGICAL HISTORY : Cardiac surgery. ENCOUNTER: Initial ACUITY: 1 day PAIN SCORE: Nonresponsive. LOCATION: Bilateral upper quadrant MEASUREMENTS: LIVER: 15.6 cm length COMMON DUCT: 5 mm RIGHT KIDNEY: 11.3 x 5.3 x 5.6 cm SPLEEN: 9.8 cm length FINDINGS: LIVER: Normal echotexture without focal lesion or ductal dilatation. COMMON DUCT: No intraluminal mass or stone visualized. GALLBLADDER: Multiple gallstones are seen. The gallbladder wall is thickened at 4 mm. PANCREAS: The pancreas is obscured by bowel gas. RIGHT KIDNEY: There is cortical thinning. There is a 2.4 cm cyst at the mid right kidney. SPLEEN: There are tiny echogenic foci likely related to calcifications seen in the spleen. CONCLUSION: 1. Gallstones with a mildly thickened gallbladder wall. This can be correlated with any clinical sign s of possible cholecystitis. 2. Right renal cortical thinning would be secondary to medical renal disease. Charli Landry MD on July 20, 2017 at 23:54 Board Certified Radiologist. This report was verified electronically.
[2017-07-21] MEDS: SODIUM CHLORIDE 23.4% INJ 38.5 MEQ in WATER STERILE FOR INJ 1,000 ML IV SCH ×3 (00:10→18:21)
[2017-07-21] MEDS: MORPHINE SULFATE 4 MG/ML INJ IV PUSH PRN ×2 (00:10→21:38)
[2017-07-21] MEDS: RESP: ALBUTEROL 2.5 MG/IPRATROPIUM 0.5 MG NEB (SCH) INH ×4 (03:11→19:54)
[2017-07-21] MEDS: CHLORHEXIDINE GLUCONATE 2 % 1 PACK (2 CLOTHS) TOP SCH (04:00)
--- NOTE | 2017-07-21 04:49 | RADRPT ---
EXAM DATE/TIME: 07/21/2017 03:27 [facility] COMPARISON: CHEST SINGLE AP, July 19, 2017, 10:48. INDICATIONS : Shortness of breath, possible pulmonary disease. MEDICAL HISTORY : Hypertension. Gastroesophageal reflux disease. A-Fib Dementia SURGICAL HISTORY : CABG. ENCOUNTER: Subsequent ACUITY: 2 days PAIN SCORE: Non-responsive. LOCATION: Bilateral chest FINDINGS: The patient is status post sternotomy. The heart size is enlarged. The lungs demonstrate increased de nsity seen throughout. There is silhouetting of the hemidiaphragms bilaterally. CONCLUSION: Cardiomegaly with diffuse increased density in the lungs likely related to diffuse consolidation and edema. Charli Landry MD on July 21, 2017 at 4:44 Board Certified Radiologist. This report was verified electronically.
--- NOTE | 2017-07-21 04:50 | RADRPT ---
EXAM DATE/TIME: 07/21/2017 03:31 [facility] COMPARISON: No previous studies available for comparison. INDICATIONS : Constipation. MEDICAL HISTORY : Gastroesophageal reflux disease. Cardiovascular disease. Hypertension. Dementia SURGICAL HISTORY : None. ENCOUNTER: Subsequent ACUITY: 3 days PAIN SCORE: Non-responsive. LOCATION: Bilateral chest Abdomen FINDINGS: There is an aortic stent graft in place. There is a left hip prosthesis present. There is some dilate d bowel in the right upper quadrant likely related to the colon. Free air is not seen. CONCLUSION: Suspected dilatation of the right-sided colon. Charli Landry MD on July 21, 2017 at 4:47 Board Certified Radiologist. This report was verified electronically.
[2017-07-21] MEDS: HEPARIN SODIUM - SQ 10,000 UNITS/ML VIAL SQ SCH ×2 (05:44→15:00)
[2017-07-21] MEDS: metroNIDAZOLE 500 MG TAB PO SCH ×5 (05:45→23:49)
[2017-07-21 07:00] LABS: AST (GOT) 265 U/L (15-37); BICARBONATE 19.8 MEQ/L (21.0-32.0); BLOOD UREA NITROGEN 90 MG/DL (7-18); CALCIUM 8.1 MG/DL (8.5-10.1); CHLORIDE 114 MEQ/L (98-107); CREATININE 3.12 MG/DL (0.60-1.30); GLOMERULAR FILTRATION RATE 19 ML/MIN (>89); GLUCOSE,RANDOM 89 MG/DL (74-106); MAGNESIUM 1.7 MG/DL (1.5-2.5); SODIUM (NA) 145 MEQ/L (136-145)
[2017-07-21 07:01] LABS: CHOLESTEROL 68 MG/DL (120-200)
[2017-07-21 07:15] LABS: ALKALINE PHOSPHATASE 83 U/L (45-117); ALT (GPT) 216 U/L (12-78); CHOLESTEROL/ HDL RATIO 8.29 RATIO; HDL CHOLESTEROL 8.2 MG/DL (40.0-60.0); LDL CHOLESTEROL 28 MG/DL (0-99); PHOSPHORUS 2.6 MG/DL (2.5-4.9); TOTAL BILIRUBIN ADULT 1.1 MG/DL (0.2-1.0); TOTAL PROTEIN 4.7 GM/DL (6.4-8.2); TRIGLYCERIDES 158 MG/DL (42-150); TROPONIN I 0.17 NG/ML (0.02-0.05)
[2017-07-21 07:32] LABS: AUTOMATED NEUTROPHIL # 10.3 TH/MM3 (1.8-7.7); BASOPHIL % 0.1 % (0.0-2.0); EOSINOPHIL % 0.3 % (0.0-4.0); HEMATOCRIT 22.9 % (39.0-51.0); HEMOGLOBIN 7.4 GM/DL (13.0-17.0); LYMPH % 5.4 % (9.0-44.0); LYMPHOCYTE # 0.6 TH/MM3 (1.0-4.8); MEAN CELL VOLUME 88.9 FL (80.0-100.0); MEAN CORPUSCULAR HEMOGLOBIN 28.8 PG (27.0-34.0); MEAN CORPUSCULAR HGB CONC 32.4 % (32.0-36.0); MEAN PLATELET VOLUME 8.9 FL (7.0-11.0); MONO % 5.7 % (0.0-8.0); MONOCYTE # 0.7 TH/MM3 (0-0.9); NEUT % 88.5 % (16.0-70.0); PLATELET COUNT 118 TH/MM3 (150-450); RED BLOOD COUNT 2.58 MIL/MM3 (4.50-5.90); RED CELL DISTRIBUTION WIDTH 17.4 % (11.6-17.2); WHITE BLOOD COUNT 11.6 TH/MM3 (4.0-11.0)
[2017-07-21] MEDS: INSULIN ASPART SUPPLEMENTAL SCALE SQ SCH ×4 (08:00→21:00)
--- NOTE | 2017-07-21 08:34 | EKG ---
Date Performed: 07/19/2017 Time Performed: 10:20:45 PTAGE: 87 years EKG: ATRIAL FIBRILLATION WITH RAPID VENTRICULAR RESPONSE LOW LIMB LEAD VOLTAGE POOR R WAVE PROGR ESSION POSSIBLE OLD ANTERIOR INFARCT NONSPECIFIC ST T WAVE CHANGES VENTRICULAR RATE HAS ACCELERATED F ROM THE PRIOR TRACING PREVIOUS TRACING : 06/11/2017 19.46 DOCTOR: Quinn Benitez Interpretating Date/Time 07/21/2017 08:34:30
[2017-07-21] MEDS: METOPROLOL TARTRATE 25 MG TAB PO SCH ×2 (09:00→21:00)
[2017-07-21] MEDS: PANTOPRAZOLE SOD 40 MG DELAYED RELEASE TAB PO SCH (09:00)
[2017-07-21] MEDS: DOCUSATE SODIUM 50 MG/SENNA 8.6 MG TAB PO SCH ×2 (09:00→21:00)
[2017-07-21] MEDS: ARTIFICIAL TEARS OPTH SOLN 15 ML BTL EACH EYE SCH ×3 (09:00→18:00)
[2017-07-21] MEDS: POLYETHYLENE GLYCOL 17 GM PKG PO SCH ×2 (09:00→21:00)
[2017-07-21] MEDS: LACTULOSE SYRUP 20 GM/30 ML CUP PO SCH ×4 (09:00→21:00)
[2017-07-21] MEDS: CHOLECALCIFEROL (VIT D3) 1000 UNIT TAB PO SCH (09:00)
[2017-07-21] MEDS: FERROUS SULFATE 325 MG (65 MG ELEMENTAL IRON) TAB PO SCH (09:00)
[2017-07-21] MEDS: SODIUM CHLORIDE 0.9% FLUSH 10 ML FLUSH IV FLUSH SCH ×2 (09:00→21:00)
--- NOTE | 2017-07-21 10:23 | PD.CONS ---
Consult Service Palliative Care Consult Requested By Dr Solomon Primary Care Physician Ashok Wilks M.D. Reason for Consultation a. To assist with evaluation and management of symptoms including: pain, agitation, dyspnea, dysphagia. b. To assist medical decision maker(s) with: better understanding of current medical conditions; weighing benefits/burdens of medical treatment options; making medical treatment decisions. . HPI History of Present Illness Mr. Will is an 87 year old male with past medical history of dementia, chronic afib, hypertension, GERD, and recent hip fracture with hemiarthroplasty in June 2017. He was residing at a local long-term care facility, [facility]. Patient presented to [facility] on 07/19/17 with altered mental status and fever. When he arrived, he was found to be in atrial fibrillation with rapid ventricular response, rate in the 140s-150s. Blood work was significant for leukocytosis of 21,000 as well as severe renal impairment with creatinine greater than 3. Labs today are significant for Hb 7.4 and mild thrombocytopenia of 118K but improving leukocytosis of 11.6. Chemistries continue to show elevated transaminases as well as continuing renal dysfunction. CXR shows pneumonia bilateral lower lobes. Cultures are negative to date; rapid flu test negative. Palliative care was consulted to assist with clarification of goals of care in this elderly male with multi organ failure. He has bilateral heel ulcers as well as a sacral ulcer. Oxygen is delivered via simple face mask but patient does have copious secretions and a frequent cough. Heart rate has improved on diltiazem drip and is now running 80-100; diltiazem is off. Urine output has been poor (325 ml in previous 24 hours). Abdominal studies did reveal significant constipation so he is receiving Relistor as well as glycerin suppository and enema. Today he is resting in bed; eyes are closed. He does not follow commands nor respond to questions but does exhibit purposeful movement and mutters or yells with stimulation. Frequent moist cough; has been placed on pureed diet by speech therapy. Decisions about goals of care are as yet undetermined. Call has been placed to DCF piano case maker to assist with finding legal decision maker; no return call yet. . Function/Cognitive Trajectory Unknown, patient unable to answer questions. . Review of Systems ROS Limitations: Altered Mental Status, Poor Historian Constitutional: COMPLAINS OF: Weight loss Respiratory: COMPLAINS OF: Cough, Shortness of breath Cardiovascular: COMPLAINS OF: Palpitations Gastrointestinal: COMPLAINS OF: Constipation, Difficulty Swallowing Musculoskeletal: COMPLAINS OF: Decreased range of motion Integumentary: COMPLAINS OF: Non-healing sores Neurologic: COMPLAINS OF: Abnormal gait Psychiatric: COMPLAINS OF: Agitation Other ROS: Patient is not able to answer any questions; ROS is obtained from medical record. Past Family Social History Coded Allergies: Penicillins (Verified Allergy, Severe, 07/19/17) Past Medical History Dementia Atrial fib Hypertension GERD Constipation Osteoporosis Past Surgical History Left hip hemiarthroplasty (June 2017) Endovascular stent for AAA Reported Medications Calcium 600+D 200 (Calcium Carbonate-Vitamin D) 600-200 Mg-Unit Tab 1 Tab PO BID 30 Days Vitamin D3 (Cholecalciferol) 2,000 Unit Cap 2,000 Units PO DAILY Xarelto (Rivaroxaban) 10 Mg Tab 10 Mg PO DAILY Hydrocodone-Acetaminophen 7.5 Mg-325 Mg Tab 1 Tab PO Q4H PRN Walker/Adult/Folding (Device) 1 Mis Mis Ea .ROUTE DIRECTED Reported Zofran (Ondansetron HCl) 4 Mg Tab 4 Mg PO Q12HR PRN Ergocalciferol 50,000 Unit Cap 50,000 Units PO Q7D Imodium A-D (Loperamide HCl) 2 Mg Capsule 2 Mg PO DIRECTED PRN One capsule after each loose stool. Not to exceed 8 tablets per day. Ferrous Sulfate 325 Mg (65 Mg Iron) Tablet 325 Mg PO DAILY Donepezil 10 Mg Tab 10 Mg PO HS Remeron (Mirtazapine) 15 Mg Tab 15 Mg PO HS Sennosides 8.6 Mg Tab 8.6 Mg PO HS Metoprolol Tartrate 25 Mg Tab 25 Mg PO BID Current Medications Medications (Trade) Dose Ordered Sig/Chelsey Route Start Time Stop Time Status Last Admin (Vitamin D3) 2,000 units DAILY PO 07/20/17 09:00 07/20/17 08:49 (Aricept) 10 mg HS PO 07/19/17 21:00 07/19/17 21:01 (Ferrous Sulfate) 325 mg DAILY PO 07/20/17 09:00 07/20/17 08:49 (Lopressor) 25 mg BID PO 07/19/17 21:00 07/20/17 08:50 (Remeron) 15 mg HS PO 07/19/17 21:00 07/19/17 21:01 (Miralax) 17 gm BID PO 07/19/17 21:00 07/20/17 08:50 (Lactulose Liq) 30 ml QID PO 07/19/17 18:00 07/20/17 18:20 (NS Flush) 2 ml UNSCH PRN IV FLUSH 07/19/17 13:45 (NS Flush) 2 ml BID IV FLUSH 07/19/17 21:00 07/20/17 20:34 (Tylenol) 650 mg Q6H PRN PO 07/19/17 13:45 ([place] 5-325 Mg) 1 tab Q4H PRN PO 07/19/17 13:45 (Morphine Inj) 2 mg Q2H PRN IV PUSH 07/19/17 13:45 07/21/17 00:10 (Protonix) 40 mg DAILY PO 07/20/17 09:00 07/20/17 08:49 (Tears Naturale Opth Soln) 1 drop TID EACH EYE 07/19/17 18:00 07/20/17 12:03 (Zofran Inj) 4 mg Q6H PRN IV PUSH 07/19/17 13:45 07/20/17 09:58 (Duoneb Neb) 1 ampule Q6HR NEB INH 07/19/17 16:00 07/21/17 07:38 (Albuterol Neb) 2.5 mg Q2HR NEB PRN INH 07/19/17 13:45 (Heparin Inj) 5,000 units Q12H SQ 07/19/17 15:00 07/21/17 05:44 Miscellaneous Information 1 Q361D XX 07/19/17 13:45 (Chlorhexidine 2% Cloth) 3 pack Taper DAILY@04 TOP 07/20/17 04:00 07/16/18 03:59 07/21/17 04:00 (Chlorhexidine 2% Cloth) 3 pack UNSCH PRN TOP 07/19/17 13:45 (Diane-Colace) 1 tab BID PO 07/19/17 21:00 07/20/17 08:49 (Milk Of Magnesia Liq) 30 ml Q12H PRN PO 07/19/17 13:45 (Senokot) 17.2 mg Q12H PRN PO 07/19/17 13:45 (Dulcolax Supp) 10 mg DAILY PRN RECTAL 07/19/17 13:45 (Lactulose Liq) 30 ml DAILY PRN PO 07/19/17 13:45 Pharmacy Profile Note 0 ml @ 0 mls/hr UNSCH OTHER 07/19/17 13:45 Aztreonam 1000 mg/ Sodium Chloride 100 ml @ 200 mls/hr Q24H IV 07/19/17 16:00 07/26/17 15:59 07/20/17 16:05 (Flagyl) 500 mg Q6HR PO 07/19/17 18:00 07/20/17 18:20 Levofloxacin/ Dextrose 100 ml @ 100 mls/hr Q48H IV 07/19/17 16:00 07/19/17 17:29 (D50w (Vial) Inj) 50 ml UNSCH PRN IV PUSH 07/19/17 14:45 (Glucagon Inj) 1 mg UNSCH PRN OTHER 07/19/17 14:45 (NovoLOG SUPPLEMENTAL SCALE) 1 ACHS SLIDING SCALE SQ 07/19/17 17:00 Sodium Chloride 38.5 meq/Sterile Water 1,009.625 ml @ 125 mls/hr Q8H5M IV 07/20/17 16:00 07/21/17 00:10 Family History ; reportedly worked in [employer] but did not work within the [employer]. No known family. Substance Use Tobacco: none per old records Alcohol: none per old records Prescription med abuse: none per old records Illicits: none reported Spiritual/Cultural Factors Unknown. . Living Will: Never completed Health Care Surrogate: Never completed Durable Power of Sausage Stuffer: Never completed Ethical and Legal Issues Attempting to clarify decision maker, awaiting return call from [facility] piano case maker. . Physical Exam Vital Signs Date Time Temp Pulse Resp B/P (MAP) Pulse Ox O2 Delivery O2 Flow Rate FiO2 07/21/17 07:40 99 Simple Mask 8.00 07/21/17 04:00 98.0 99 28 118/56 (76) 100 07/21/17 03:12 99 Simple Mask 8.00 07/21/17 00:00 98.2 87 30 107/60 (76) 99 07/20/17 23:25 99 Simple Mask 8.00 07/20/17 20:30 100 Simple Mask 8.00 07/20/17 20:00 97.9 75 26 113/60 (77) 96 07/20/17 18:00 75 07/20/17 16:00 66 07/20/17 16:00 98.1 66 24 107/59 (75) 98 07/20/17 14:00 72 07/20/17 12:48 64 99/55 07/20/17 12:08 29 07/20/17 12:00 98.1 74 29 93/51 (65) 93 07/20/17 12:00 74 Exam CONSTITUTIONAL/GENERAL: This is a thin elderly male resting in bed; he fidgets but does not respond directly to any questions nor follow commands TUBES/LINES/DRAINS: PIV, O2 via NC; Mcconnell; SCDs; podus boots SKIN: No jaundice, rashes, or lesions. Bilateral heel ulcers; right foot with eschar; left foot open. HEAD: Atraumatic. Normocephalic. EYES: Pupils equal and round and reactive. Extraocular motions intact. No scleral icterus. No injection or drainage. Fundi not examined. ENT: Hearing grossly normal. Nose without bleeding or purulent drainage Edentulous; copious oral secretions NECK: Trachea midline. Supple, nontender. No palpable thyroid enlargement or nodularity. CARDIOVASCULAR: irregular; no obvious murmurs; peripheral pulses weak but palpable RESPIRATORY/CHEST: Symmetric, unlabored respirations but some tachypnea; bilateral fine crackles at the bases; frequent moist cough noted GASTROINTESTINAL: Abdomen soft, non-tender, mildly distended; no guarding or rebound GENITOURINARY: Without palpable bladder distension. Mcconnell catheter in place draining clear pale kishan MUSCULOSKELETAL: Extremities without clubbing, right foot is cool and mildly cyanotic but left foot is warm; he yells with any hip movement on either side LYMPHATICS: No palpable cervical or supraclavicular adenopathy. NEUROLOGICAL: Does not follow commands, spontaneously open eyes, or answer questions. He does exhibit awareness of tactile stimulation with mild yelling and has some spontaneous movement x 4 PSYCHIATRIC: he is fidgety but generally peaceful at rest; becomes agitated with stimulation. . Diagnostic Tests Laboratory Laboratory Tests Test 07/19/17 10:50 07/19/17 10:59 07/19/17 17:35 1/13/18 18:54 White Blood Count 21.8 TH/MM3 (4.0-11.0) Red Blood Count 3.36 MIL/MM3 (4.50-5.90) Hemoglobin 9.5 GM/DL (13.0-17.0) Hematocrit 30.6 % (39.0-51.0) Mean Corpuscular Volume 91.2 FL (80.0-100.0) Mean Corpuscular Hemoglobin 28.4 PG (27.0-34.0) Mean Corpuscular Hemoglobin Concent 31.1 % (32.0-36.0) Red Cell Distribution Width 17.0 % (11.6-17.2) Platelet Count 190 TH/MM3 (150-450) Mean Platelet Volume 8.6 FL (7.0-11.0) Neutrophils (%) (Auto) 91.7 % (16.0-70.0) Lymphocytes (%) (Auto) 4.4 % (9.0-44.0) Monocytes (%) (Auto) 3.6 % (0.0-8.0) Eosinophils (%) (Auto) 0.1 % (0.0-4.0) Basophils (%) (Auto) 0.2 % (0.0-2.0) Neutrophils # (Auto) 20.0 TH/MM3 (1.8-7.7) Lymphocytes # (Auto) 0.9 TH/MM3 (1.0-4.8) Monocytes # (Auto) 0.8 TH/MM3 (0-0.9) Eosinophils # (Auto) 0.0 TH/MM3 (0-0.4) Basophils # (Auto) 0.0 TH/MM3 (0-0.2) CBC Comment DIFF FINAL Differential Comment Prothrombin Time 15.5 SEC (9.8-11.6) Prothromb Time International Ratio 1.5 RATIO Activated Partial Thromboplast Time 31.7 SEC (24.3-30.1) Fibrinogen 586 mg/dL (227-377) Blood Urea Nitrogen 91 MG/DL (7-18) Creatinine 3.60 MG/DL (0.60-1.30) Random Glucose 112 MG/DL (74-106) Total Protein 6.6 GM/DL (6.4-8.2) Albumin 2.2 GM/DL (3.4-5.0) Calcium Level 9.4 MG/DL (8.5-10.1) Magnesium Level 2.1 MG/DL (1.5-2.5) Alkaline Phosphatase 119 U/L (45-117) Aspartate Amino Transf (AST/SGOT) 306 U/L (15-37) Alanine Aminotransferase (ALT/SGPT) 97 U/L (12-78) Total Bilirubin 1.3 MG/DL (0.2-1.0) Sodium Level 147 MEQ/L (136-145) Potassium Level 5.8 MEQ/L (3.5-5.1) 4.4 MEQ/L (3.5-5.1) Chloride Level 110 MEQ/L (98-107) Carbon Dioxide Level 19.1 MEQ/L (21.0-32.0) Anion Gap 18 MEQ/L (5-15) Estimat Glomerular Filtration Rate 16 ML/MIN (>89) Lactic Acid Level 9.0 mmol/L (0.4-2.0) 7.2 mmol/L (0.4-2.0) Total Creatine Kinase 620 U/L (39-308) Creatine Kinase MB 7.6 NG/ML (0.5-3.6) Creatine Kinase MB % 1.2 % (0.0-4.0) Troponin I 0.16 NG/ML (0.02-0.05) 0.22 NG/ML (0.02-0.05) Urine Color DARK-YELLOW (YELLW/STRAW) Urine Turbidity HAZY (CLEAR) Urine pH 5.0 (5.0-8.5) Urine Specific [place] 1.020 (1.002-1.035) Urine Protein TRACE mg/dL (NEG-TRACE) Urine Glucose (UA) NEG mg/dL (NEG) Urine Ketones NEG mg/dL (NEG) Urine Occult Blood LARGE (NEG) Urine Nitrite NEG (NEG) Urine Bilirubin NEG (NEG) Urine Urobilinogen LESS THAN 2.0 MG/DL (LESS Urine Leukocyte Esterase NEG (NEG) Urine RBC 1 /hpf (0-3) Urine WBC 3 /hpf (0-5) Urine Amorphous Sediment OCC Urine Bacteria RARE /hpf (NONE) Urine Hyaline Casts 1 /lpf (RARE) Microscopic Urinalysis Comment CATH-CULTURE IND Test 07/19/17 23:00 07/19/17 23:42 1/14/18 03:35 07/21/17 06:18 Urine Eosinophils NONE SEEN /HPF (NONE SEEN) Urine Random Creatinine 103.5 MG/DL Urine Random Sodium 48 MEQ/L Troponin I 0.25 NG/ML (0.02-0.05) Thyroid Stimulating Hormone 3rd Gen 1.100 uIU/ML (0.358-3.740) White Blood Count 10.5 TH/MM3 (4.0-11.0) Red Blood Count 2.74 MIL/MM3 (4.50-5.90) Hemoglobin 7.9 GM/DL (13.0-17.0) Hematocrit 24.2 % (39.0-51.0) Mean Corpuscular Volume 88.4 FL (80.0-100.0) Mean Corpuscular Hemoglobin 29.0 PG (27.0-34.0) Mean Corpuscular Hemoglobin Concent 32.8 % (32.0-36.0) Red Cell Distribution Width 17.4 % (11.6-17.2) Platelet Count 138 TH/MM3 (150-450) Mean Platelet Volume 8.4 FL (7.0-11.0) Neutrophils (%) (Auto) 89.6 % (16.0-70.0) Lymphocytes (%) (Auto) 6.0 % (9.0-44.0) Monocytes (%) (Auto) 3.5 % (0.0-8.0) Eosinophils (%) (Auto) 0.8 % (0.0-4.0) Basophils (%) (Auto) 0.1 % (0.0-2.0) Neutrophils # (Auto) 9.4 TH/MM3 (1.8-7.7) Lymphocytes # (Auto) 0.6 TH/MM3 (1.0-4.8) Monocytes # (Auto) 0.4 TH/MM3 (0-0.9) Eosinophils # (Auto) 0.1 TH/MM3 (0-0.4) Basophils # (Auto) 0.0 TH/MM3 (0-0.2) CBC Comment DIFF FINAL Differential Comment Prothrombin Time 17.1 SEC (9.8-11.6) Prothromb Time International Ratio 1.7 RATIO Activated Partial Thromboplast Time 37.1 SEC (24.3-30.1) Blood Urea Nitrogen 96 MG/DL (7-18) Creatinine 3.46 MG/DL (0.60-1.30) Random Glucose 97 MG/DL (74-106) Total Protein 5.0 GM/DL (6.4-8.2) Albumin 1.7 GM/DL (3.4-5.0) Calcium Level 8.2 MG/DL (8.5-10.1) Phosphorus Level 2.3 MG/DL (2.5-4.9) Magnesium Level 1.8 MG/DL (1.5-2.5) Alkaline Phosphatase 93 U/L (45-117) Aspartate Amino Transf (AST/SGOT) 810 U/L (15-37) Alanine Aminotransferase (ALT/SGPT) 365 U/L (12-78) Total Bilirubin 1.0 MG/DL (0.2-1.0) Sodium Level 152 MEQ/L (136-145) Potassium Level 3.8 MEQ/L (3.5-5.1) Chloride Level 117 MEQ/L (98-107) Carbon Dioxide Level 24.6 MEQ/L (21.0-32.0) Anion Gap 10 MEQ/L (5-15) Estimat Glomerular Filtration Rate 17 ML/MIN (>89) Lactic Acid Level 2.3 mmol/L (0.4-2.0) 1.5 mmol/L (0.4-2.0) Ammonia LESS THAN 10 MCMOL/L Lactate Dehydrogenase 547 U/L (87-241) Total Creatine Kinase 736 U/L (39-308) Creatine Kinase MB 8.5 NG/ML (0.5-3.6) Creatine Kinase MB % 1.2 % (0.0-4.0) Random Vancomycin Level 12.2 COMMENT Test 07/21/17 06:20 White Blood Count 11.6 TH/MM3 (4.0-11.0) Red Blood Count 2.58 MIL/MM3 (4.50-5.90) Hemoglobin 7.4 GM/DL (13.0-17.0) Hematocrit 22.9 % (39.0-51.0) Mean Corpuscular Volume 88.9 FL (80.0-100.0) Mean Corpuscular Hemoglobin 28.8 PG (27.0-34.0) Mean Corpuscular Hemoglobin Concent 32.4 % (32.0-36.0) Red Cell Distribution Width 17.4 % (11.6-17.2) Platelet Count 118 TH/MM3 (150-450) Mean Platelet Volume 8.9 FL (7.0-11.0) Neutrophils (%) (Auto) 88.5 % (16.0-70.0) Lymphocytes (%) (Auto) 5.4 % (9.0-44.0) Monocytes (%) (Auto) 5.7 % (0.0-8.0) Eosinophils (%) (Auto) 0.3 % (0.0-4.0) Basophils (%) (Auto) 0.1 % (0.0-2.0) Neutrophils # (Auto) 10.3 TH/MM3 (1.8-7.7) Lymphocytes # (Auto) 0.6 TH/MM3 (1.0-4.8) Monocytes # (Auto) 0.7 TH/MM3 (0-0.9) Eosinophils # (Auto) 0.0 TH/MM3 (0-0.4) Basophils # (Auto) 0.0 TH/MM3 (0-0.2) CBC Comment DIFF FINAL Differential Comment Blood Urea Nitrogen 90 MG/DL (7-18) Creatinine 3.12 MG/DL (0.60-1.30) Random Glucose 89 MG/DL (74-106) Total Protein 4.7 GM/DL (6.4-8.2) Albumin 2.0 GM/DL (3.4-5.0) Calcium Level 8.1 MG/DL (8.5-10.1) Phosphorus Level 2.6 MG/DL (2.5-4.9) Magnesium Level 1.7 MG/DL (1.5-2.5) Alkaline Phosphatase 83 U/L (45-117) Aspartate Amino Transf (AST/SGOT) 265 U/L (15-37) Alanine Aminotransferase (ALT/SGPT) 216 U/L (12-78) Total Bilirubin 1.1 MG/DL (0.2-1.0) Sodium Level 145 MEQ/L (136-145) Potassium Level 3.7 MEQ/L (3.5-5.1) Chloride Level 114 MEQ/L (98-107) Carbon Dioxide Level 19.8 MEQ/L (21.0-32.0) Anion Gap 11 MEQ/L (5-15) Estimat Glomerular Filtration Rate 19 ML/MIN (>89) Total Creatine Kinase 1098 U/L (39-308) Creatine Kinase MB 21.8 NG/ML (0.5-3.6) Creatine Kinase MB % 2.0 % (0.0-4.0) Troponin I 0.17 NG/ML (0.02-0.05) Triglycerides Level 158 MG/DL (42-150) Cholesterol Level 68 MG/DL (120-200) LDL Cholesterol 28 MG/DL (0-99) HDL Cholesterol 8.2 MG/DL (40.0-60.0) Cholesterol/HDL Ratio 8.29 RATIO Result Diagram: 07/21/17 0620 07/21/17 0620 Microbiology Microbiology Date/Time Source Procedure Growth Status 07/19/17 10:50 Blood Peripheral Aerobic Blood Culture - Preliminary NO GROWTH IN 1 DAY Resulted 07/19/17 10:50 Blood Peripheral Anaerobic Blood Culture - Preliminary NO GROWTH IN 1 DAY Resulted 07/19/17 10:45 Blood Peripheral Aerobic Blood Culture - Preliminary NO GROWTH IN 1 DAY Resulted 07/19/17 10:45 Blood Peripheral Anaerobic Blood Culture - Preliminary NO GROWTH IN 1 DAY Resulted 07/19/17 19:54 Nasal Aspirate Influenza Types A,B Antigen (SHAHID) - Final NEGATIVE FOR FLU A AND B ANTIGEN.... Complete 07/19/17 10:59 Urine Catheterized Urine Urine Culture - Final NO GROWTH IN 48 HOURS. Complete Imaging Last Impressions Chest X-Ray 07/21/17 0600 Signed Impressions: Service Date/Time: Friday, July 21, 2017 03:27 - CONCLUSION: Cardiomegaly with diffuse increased density in the lungs likely related to diffuse consolidation and edema. Charli Landry MD Abdomen X-Ray 07/21/17 0600 Signed Impressions: Service Date/Time: Friday, July 21, 2017 03:31 - CONCLUSION: Suspected dilatation of the right-sided colon. Charli Landry MD Liver Ultrasound 07/20/17 0000 Signed Impressions: Service Date/Time: Thursday, July 20, 2017 22:12 - CONCLUSION: 1. Gallstones with a mildly thickened gallbladder wall. This can be correlated with any clinical signs of possible cholecystitis. 2. Right renal cortical thinning would be secondary to medical renal disease. Charli Landry MD Abdomen/Pelvis CT 07/19/17 1206 Signed Impressions: Service Date/Time: Wednesday, July 19, 2017 12:40 - CONCLUSION: 1. Nonobstructive bowel gas pattern which could represent a mild ileus. There is a moderate to large amount of stool in the distal colon which could indicate constipation. 2. Dense consolidation in both lower lobes concerning for pneumonia. 3. The gallbladder is at the upper limits of normal in size. 4. Status post aortic stent graft placement. Young Armstrong MD Head CT 07/19/17 1046 Signed Impressions: Service Date/Time: Wednesday, July 19, 2017 11:31 - CONCLUSION: No acute intracranial findings. Chronic ischemic findings. Frantz Schulte MD Assessment and Plan Disease Oriented Problem List: (1) Pain (2) Dyspnea (3) Dysphagia (4) Dementia (5) Acute renal failure (6) Severe sepsis (7) Atrial fibrillation with RVR (8) Constipation (9) Anemia (10) Heel ulcer (11) Sacral decubitus ulcer (12) Chronic anticoagulation Symptom Scale: (1) Pain 0-10 Scale: Unable to quantify Comment: Inability to communicate consistently makes it difficult to assess pain; he does yell with any movement of hips or legs; has hydrocodone/APAP as well as morphine ordered PRN (2) Dyspnea 0-10 Scale: Unable to quantify Comment: On antibiotics and supplemental oxygen; still has frequent cough (3) Dysphagia 0-10 Scale: Unable to quantify (Pureed diet; meds crushed in applesauce) Comment: Follow ST recommendations closely; pureed diet with meds crushed in applesauce (4) Agitation 0-10 Scale: Unable to quantify Pertinent Non-Medical Issues Psychosocial: progressive dementia; was residing at [facility] prior to admission. From [place], never worked in . Spiritual: none known. Legal: no family members per chart review; call placed to DCF piano case maker for clarification of health care decision making process; no return call received Ethical issues impacting care: no family members; patient is incapacitated and unlikely to regain capacity. Will await input from [facility] in order to proceed with legal process to find a medical decision maker. . Important Contacts [facility] Locker Room Attendant Stephie Bal [phone] Prognosis Elderly frail gentleman with multisystem failure and worsening dementia; unable to participate in self care decisions. Prognosis at this time appears to be days to weeks; PPS between 20-30. Code Status: Full Code (await decision maker) Plan * Call placed to DCF piano case maker Stephie Héctor for assistance in clarifying possible decision makers; no return call yet. * FULL CODE * Discussed with nurse, Dr. Charli Nguyen and Soheila, hotel recreational facilities manager. Left 2 messages for DCF, piano case maker to return call. * SYMPTOMS: Pain: sources include wounds, bedbound status. Dyspnea: on oxygen via NC. Agitation: likely multifactorial. No new medication recommendations at this time. * Palliative care will continue to follow to determine legal decision maker and clarify treatment goals. Thank you for the opportunity to participate in the care of Mr. Will. Attestation To help prompt me to consider important information that might be impacting today's encounter and assessment, information from prior notes written by myself or my colleagues may have been "brought forward" into today's note. My signature on this note, however, is an attestation that I personally performed the exam, history, and/or decision-making noted today, and, unless otherwise indicated, the interactions with patient, family, and staff as well as the review of records all occurred today. I also attest that the listed assessment and stated plan reflect my best clinical judgment today based on the combination of historical information, prior notes, and today's exam/ interactions. When time spent is documented, it refers only to time spent today by the signer, or if indicated, combined time spent today by collaborating physician/nurse practitioner. Randee Damon Jul 21, 2017 10:23
[2017-07-21 10:56] LABS: HEPATITIS A AB IGM NEGATIVE (NEGATIVE); HEPATITIS B CORE AB IGM NEGATIVE (NEGATIVE); HEPATITIS B SURFACE ANTIGEN NEGATIVE (NEGATIVE); HEPATITIS C AB IgG NEGATIVE (NEGATIVE)
--- NOTE | 2017-07-21 14:09 | HHI.CCPN ---
Subjective Remarks/Hospital Course 87-year-old male. Date of admission 07/19/2017. Past medical history includes dementia disorder, chronic atrial fibrillation, hypertension, chronic anticoagulation, gastroesophageal reflux disease, constipation. Patient is a resident of [facility]. Patient presents to [facility] after subacute onset of fevers, altered mental status. Patient was transported per halfway request. Patient is noted to be in A. fib with RVR heart rate in the 140s. Pelvic revealed a creatinine of 3.6. Potassium of 5.8. White blood cell count 21, 000. Elevated INR and PTT, lactic acidosis of 9.0, elevated transaminases, elevated CPK and troponin and low albumin. CT abdomen/pelvis revealed fecal impaction, nonobstructive bowel gas pattern in an old aortic graft stent. Chest x-ray revealed bilateral lower lobe pneumonia. Patient received cefepime and vancomycin in the emergency department. We are asked to admit the patient. He is currently awake and pleasantly confused on 3 L nasal cannula Subjective 07/20: Currently presents a mask at 10 L. Afebrile. Coughing up copious amounts secretions. Remains encephalopathic. 07/21: Maintaining oxygenation, remains encephalopathic. Creatinine remains at 3. Urine output 325 mm in 24 hours. Chest x-ray shows diffuse consolidation and pulmonary edema. Attempted diuresis with high-dose Lasix. Palliative care consulted, not a candidate for hemodialysis due to advanced age and dementia. Will consult nephrology if family wants aggressive care Objective Vital Signs Date Time Temp Pulse Resp B/P (MAP) Pulse Ox O2 Delivery O2 Flow Rate FiO2 07/21/17 10:00 110 07/21/17 08:00 98.4 20 129/58 (81) 96 07/21/17 07:40 Simple Mask 8.00 07/19/17 17:59 21 Intake and Output 07/21/17 07/21/17 07/22/17 08:00 16:00 00:00 Intake Total 1356 ml Output Total 175 ml Balance 1181 ml Result Diagram: 07/21/17 0620 07/21/17 0620 Other Results Microbiology Date/Time Source Procedure Growth Status 07/19/17 19:54 Nasal Aspirate Influenza Types A,B Antigen (SHAHID) - Final NEGATIVE FOR FLU A AND B ANTIGEN.... Complete 07/19/17 10:59 Urine Catheterized Urine Urine Culture - Final NO GROWTH IN 48 HOURS. Complete Imaging Last Impressions Abdomen/Pelvis CT 07/19/17 1206 Signed Impressions: Service Date/Time: Wednesday, July 19, 2017 12:40 - CONCLUSION: 1. Nonobstructive bowel gas pattern which could represent a mild ileus. There is a moderate to large amount of stool in the distal colon which could indicate constipation. 2. Dense consolidation in both lower lobes concerning for pneumonia. 3. The gallbladder is at the upper limits of normal in size. 4. Status post aortic stent graft placement. Young Armstrong MD Head CT 07/19/17 1046 Signed Impressions: Service Date/Time: Wednesday, July 19, 2017 11:31 - CONCLUSION: No acute intracranial findings. Chronic ischemic findings. Frantz Schulte MD Chest X-Ray 07/19/17 1024 Signed Impressions: Service Date/Time: Wednesday, July 19, 2017 10:48 - CONCLUSION: Mild bilateral interstitial lower lung opacity. Differential diagnosis includes mild pulmonary edema atelectasis, and infection. Frantz Schulte MD Objective Remarks GENERAL: 87-year-old male critically ill currently resting in bed SKIN:: Dry. Bilateral stage I heel and stage I sacral decubitus ulcer HEAD: Atraumatic. Normocephalic. EYES: Pupils equal and round about 3 mm bilaterally and reactive. No scleral icterus. No injection or drainage. ENT: No nasal bleeding or discharge. Mucous membranes pink and moist. NECK: Trachea midline. No JVD. CARDIOVASCULAR: Tachycardia, IR. S1, S2 no S4. Without murmur. RESPIRATORY: Crackles appreciated throughout lung aguayo anteriorly and posteriorly. Breath sounds equal bilaterally. GASTROINTESTINAL: Abdomen soft, non-tender, nondistended. Hypoactive bowel sounds are appreciated MUSCULOSKELETAL: Extremities without difficulty and peripheral edema. No obvious deformities. NEUROLOGICAL: Awake and alert. No obvious cranial nerve deficits. Moves all 4 extremities spontaneously. Did not follow commands for me A/P Assessment and Plan Neuro/Psych: Dementia disorder Acetaminophen 650 mg by mouth every 6 hours. Fever Hydrocodone/acetaminophen 5/325 one tablet every 4 hours when necessary pain 1-5 Morphine sulfate 2 mg IV every 8. Pain 6-10 Continued donepezil 10 mg daily for underlying dementia Continue mirtazapine 15 mg at night for depression CT brain revealed no acute intracranial findings CV: Severe sepsis with multisystem organ failure Atrial fibrillation with rapid ventricular response Cardiomyopathy with EF 25-30% Congestive heart failure Lactic acidosis Elevated troponin History of endovascular aortic grafting Continue quarter normal saline for free water replacement. IV Lasix 80 mg x1 and 40 mg IV q6h Cardizem drip as needed On metoprolol 25 mg by mouth twice a day Serial troponin every 6 hours 2. Elevated 0.25 Check TSH - 1.1 Routine 2-D echocardiogram ordered-EF 25-30% Resp: Acute respiratory insufficiency secondary to health care associated pneumonia Pulmonary edema Currently on simple mask at 8 L to maintain saturations greater than equal to 92 % Incentive spirometry while awake Albuterol/ipratropium aerosols every 6 hours with albuterol aerosols every 2 hours. Dyspnea Follow-up chest x-ray in a.m. 07/21 GI: Elevated transaminases likely secondary to shock liver Gastroesophageal reflux disease Constipation with fecal impaction Hypoalbuminemia CT abdomen/pelvis revealed nonobstructive bowel gas pattern, stool in the rectum , bilateral lower lobe infiltrates in a endovascular aortic stent graft Pantoprazole for GI prophylaxis Docusate sodium/senna 1 tablet twice a day for bowel regimen Soapsuds enema, glycerin suppository 1 now. Large amount stool in colon. : Mcconnell catheter for accurate I's and O's in a critically ill patient IV Lasix for above Endo: Sliding-scale insulin with Accu-Cheks before meals and at bedtime to maintain euglycemia Novulog Renal: Acute kidney injury Urine eosinophils negative Avoid nephrotoxic drugs Accurate I's and O's Because of worsening pulmonary edema start IV Lasix as above Quarter normal saline for free water replacement Heme: Thrombocytopenia Normocytic anemia Elevated INR/PTT - likely secondary to early DIC with pending fibrinogen Chronic Rivaroxaban use 10 mg daily Monitor CBC daily. Follow trends No indication for transfusion of blood products at this time Continue ferrous sulfate 325 mg by mouth daily ID: Received cefepime and vancomycin ED Day #2 vancomycin, aztreonam, levofloxacin and metronidazole Blood cultures 2, urine Legionella pneumococcal antigen, influenza and sputum all neg to date. UA was negative though culture has been sent. No nitrates or leukocyte esterase MSK: Recent left hip hemiarthroplasty Continue cholecalciferol 2000 units daily PT evaluate and treat FEN: Hypernatremia Hyperkalemia Quarter normal saline at 125 cc an hour Access: - Utilize peripheral IV. Central line if indicated Prophylaxis - GI - pantoprazole - DVT - SCDs/ holding Rivaroxaban today. Resume likely other type pharmacological prophylaxis when clinically indicated Critical Care: The total critical care time was 35 minutes. Time to perform other separately billable procedures was not included in the critical care time. Patient remains critically ill. Prognosis extremely poor with EF 25% advanced age dementia worsening kidney failure. Palliative care following Judit Augustin MD Jul 21, 2017 14:09
[2017-07-21] MEDS ORDERED: FUROSEMIDE 100 MG/10 ML VIAL IV PUSH ONE (14:15)
[2017-07-21] MEDS: AZTREONAM INJ 1,000 MG in SODIUM CHLORIDE 0.9% INJ 100 ML IV SCH (16:00)
--- NOTE | 2017-07-21 16:45 | PD.WCN.NOT ---
Wound Consult Description: Consult for wounds to sacrum/heel per Dr Solomon Communicated with: Patrick RN Recommendation: Leave hydrocolloid on sacrum/coccyx in place for 1 week (reinforce with skin prep and tape if needed) Continue to skin prep all non blanching areas of discoloration from sacrum to scrotum BID and PRN for moisture Manually reposition your patient from left to right sides only every [address] bilateral feet in heel raiser boots to float off mattress surface Apply skin prep to bilateral heel eschars and left medial met head BID and leave open to air Only use 1 ultrasorb pad under patient buttocks for moisture (Do not use cotton pads for incontinence with the [facility] specialty bed) Additional Information: Patient seen on [facility] for wounds to bilateral heels, sacrum, coccyx, and anterior anus. Left posterior heel eschar measures 4.3cm x 5.3cm x 100% black intact eschar with unremarkable periwound. Left medial met head is noted with a non blanching area of erythema indicating a stage 1 pressure injury measuring 1.3cm x 1.5cm x 0cm. Right lateral heel eschar measures 3.1cm x 4.5cm x 100% black intact eschar with discoloration noted to periwound that is cold to touch. Patient was positioned to his right side for assessment of sacrum after removing soft wrist restraints to reveal purple and maroon non blanching discoloration scattered from sacrum to posterior scrotum measuring 23.5cm x 6cm x <0.1cm with partial thickness skin loss noted on sacrum without drainage and without odor with periwound of wrinkled areas of friable tissue. Sacral area was skin prepped and covered with a hydrocolloid that should remain in place for 7 days. Recommend to only place patient supine or in a seated position with pressure to sacrum and coccyx for therapies. Patient should be manually repositioned every 2 hours from left to right sides only. Blue heel raiser boots should be placed on bilateral heels to float off mattress surface and remain free from pressure. [facility] specialty bed is currently in use and there are 2 staggered ultrasorbs underneath patient for moisture. Heels were floated by placing a pillow underneath calves until boots can be obtained. Sherice Qiu [facility] Jul 21, 2017 16:45
[2017-07-21] MEDS: LEVOFLOXACIN 500 MG PREMIX INJ 100 ML IV SCH (18:20)
[2017-07-21] MEDS: MIRTAZAPINE 15 MG TAB PO SCH (21:00)
[2017-07-21] MEDS: DONEPEZIL HCL 5 MG TAB PO SCH (21:00)
[2017-07-21] MEDS: FUROSEMIDE 40 MG/4 ML VIAL IV PUSH SCH (21:38)
[2017-07-22] VITALS (8 sets, daily range): BP systolic 99–127; BP diastolic 58–67; PULSE 116–139; RESP 21–32; TEMP 98.3–98.6; O2SAT 89–100
[2017-07-22] MEDS: SODIUM CHLORIDE 23.4% INJ 38.5 MEQ in WATER STERILE FOR INJ 1,000 ML IV SCH ×2 (01:14→09:10)
[2017-07-22] MEDS: HEPARIN SODIUM - SQ 10,000 UNITS/ML VIAL SQ SCH (01:14)
[2017-07-22] MEDS: FUROSEMIDE 40 MG/4 ML VIAL IV PUSH SCH ×2 (01:14→08:40)
[2017-07-22] MEDS: RESP: ALBUTEROL 2.5 MG/IPRATROPIUM 0.5 MG NEB (SCH) INH ×3 (03:45→14:20)
[2017-07-22] MEDS: CHLORHEXIDINE GLUCONATE 2 % 1 PACK (2 CLOTHS) TOP SCH (04:00)
[2017-07-22] MEDS: MORPHINE SULFATE 4 MG/ML INJ IV PUSH PRN (04:37)
--- NOTE | 2017-07-22 05:18 | RADRPT ---
EXAM DATE/TIME: 07/22/2017 04:12 [facility] COMPARISON: CHEST SINGLE AP, July 21, 2017, 3:27. INDICATIONS : Short of breath. MEDICAL HISTORY : Hypertension. Gastroesophageal reflux disease. A-Fib Dementia SURGICAL HISTORY : CABG. ENCOUNTER: Subsequent ACUITY: 1 week PAIN SCORE: 0/10 LOCATION: Bilateral chest FINDINGS: The patient is status post sternotomy. The heart size is enlarged. There's increased density seen thr oughout the mid and lower lungs bilaterally with silhouetting the hemidiaphragms. CONCLUSION: Diffuse consolidation likely related to edema. The silhouetting of the hemidiaphragms may be secondar y to bilateral effusions. Charli Landry MD on July 22, 2017 at 5:14 Board Certified Radiologist. This report was verified electronically.
[2017-07-22 07:14] LABS: AUTOMATED NEUTROPHIL # 16.5 TH/MM3 (1.8-7.7); BASOPHIL % 0.1 % (0.0-2.0); EOSINOPHIL # 0.1 TH/MM3 (0-0.4); EOSINOPHIL % 0.4 % (0.0-4.0); HEMATOCRIT 26.7 % (39.0-51.0); HEMOGLOBIN 8.2 GM/DL (13.0-17.0); LYMPHOCYTE # 0.9 TH/MM3 (1.0-4.8); MEAN CORPUSCULAR HGB CONC 30.8 % (32.0-36.0); MEAN PLATELET VOLUME 8.8 FL (7.0-11.0); MONO % 3.8 % (0.0-8.0); MONOCYTE # 0.7 TH/MM3 (0-0.9); NEUT % 90.7 % (16.0-70.0); PLATELET COUNT 129 TH/MM3 (150-450); RED BLOOD COUNT 2.94 MIL/MM3 (4.50-5.90); RED CELL DISTRIBUTION WIDTH 17.7 % (11.6-17.2); WHITE BLOOD COUNT 18.2 TH/MM3 (4.0-11.0)
--- NOTE | 2017-07-22 07:18 | HHI.CCPN ---
Subjective Remarks/Hospital Course 87-year-old male. Date of admission 07/19/2017. Past medical history includes dementia disorder, chronic atrial fibrillation, hypertension, chronic anticoagulation, gastroesophageal reflux disease, constipation. Patient is a resident of [facility]. Patient presents to [facility] after subacute onset of fevers, altered mental status. Patient was transported per assisted request. Patient is noted to be in A. fib with RVR heart rate in the 140s. Pelvic revealed a creatinine of 3.6. Potassium of 5.8. White blood cell count 21, 000. Elevated INR and PTT, lactic acidosis of 9.0, elevated transaminases, elevated CPK and troponin and low albumin. CT abdomen/pelvis revealed fecal impaction, nonobstructive bowel gas pattern in an old aortic graft stent. Chest x-ray revealed bilateral lower lobe pneumonia. Patient received cefepime and vancomycin in the emergency department. We are asked to admit the patient. He is currently awake and pleasantly confused on 3 L nasal cannula Subjective 07/20: Currently presents a mask at 10 L. Afebrile. Coughing up copious amounts secretions. Remains encephalopathic. 07/21: Maintaining oxygenation, remains encephalopathic. Creatinine remains at 3. Urine output 325 mm in 24 hours. Chest x-ray shows diffuse consolidation and pulmonary edema. Attempted diuresis with high-dose Lasix. Palliative care consulted, not a candidate for hemodialysis due to advanced age and dementia. Will consult nephrology if family wants aggressive care 07/22 Patient is on 10L simple mask, CXR this morning showed diffuse consolidation. Objective Vital Signs Date Time Temp Pulse Resp B/P (MAP) Pulse Ox O2 Delivery O2 Flow Rate FiO2 07/22/17 04:00 98.6 117 32 99/62 (74) 100 07/21/17 19:54 Nasal Cannula 4.00 07/19/17 17:59 21 Intake and Output 07/22/17 07/22/17 07/23/17 08:00 16:00 00:00 Intake Total 992 ml Output Total 1200 ml Balance -208 ml Result Diagram: 07/21/17 0620 07/21/17 0620 Other Results Laboratory Tests Test 07/22/17 06:42 Imaging Last Impressions Chest X-Ray 07/22/17 0600 Signed Impressions: Service Date/Time: Saturday, July 22, 2017 04:12 - CONCLUSION: Diffuse consolidation likely related to edema. The silhouetting of the hemidiaphragms may be secondary to bilateral effusions. Charli Landry MD Abdomen X-Ray 07/21/17 0600 Signed Impressions: Service Date/Time: Friday, July 21, 2017 03:31 - CONCLUSION: Suspected dilatation of the right-sided colon. Charli Landry MD Liver Ultrasound 07/20/17 0000 Signed Impressions: Service Date/Time: Thursday, July 20, 2017 22:12 - CONCLUSION: 1. Gallstones with a mildly thickened gallbladder wall. This can be correlated with any clinical signs of possible cholecystitis. 2. Right renal cortical thinning would be secondary to medical renal disease. Charli Landry MD Abdomen/Pelvis CT 07/19/17 1206 Signed Impressions: Service Date/Time: Wednesday, July 19, 2017 12:40 - CONCLUSION: 1. Nonobstructive bowel gas pattern which could represent a mild ileus. There is a moderate to large amount of stool in the distal colon which could indicate constipation. 2. Dense consolidation in both lower lobes concerning for pneumonia. 3. The gallbladder is at the upper limits of normal in size. 4. Status post aortic stent graft placement. Young Armstrong MD Head CT 07/19/17 1046 Signed Impressions: Service Date/Time: Wednesday, July 19, 2017 11:31 - CONCLUSION: No acute intracranial findings. Chronic ischemic findings. Frantz Schulte MD Objective Remarks GENERAL: 87-year-old male critically ill currently resting in bed on 10L simple mask SKIN:: Dry. Bilateral stage I heel and stage I sacral decubitus ulcer HEAD: Atraumatic. Normocephalic. EYES: Pupils equal and round about 3 mm bilaterally and reactive. No scleral icterus. No injection or drainage. ENT: No nasal bleeding or discharge. Mucous membranes pink and moist. NECK: Trachea midline. No JVD. CARDIOVASCULAR: Tachycardia, IR. S1, S2 no S4. Without murmur. RESPIRATORY: Crackles appreciated throughout lung aguayo anteriorly and posteriorly. Breath sounds equal bilaterally. GASTROINTESTINAL: Abdomen soft, non-tender, nondistended. Hypoactive bowel sounds are appreciated MUSCULOSKELETAL: Extremities without difficulty and peripheral edema. No obvious deformities. NEUROLOGICAL: Awake and alert. No obvious cranial nerve deficits. Moves all 4 extremities spontaneously. Did not follow commands for me A/P Assessment and Plan Neuro/Psych: Dementia disorder Acetaminophen 650 mg by mouth every 6 hours. Fever Hydrocodone/acetaminophen 5/325 one tablet every 4 hours when necessary pain 1-5 Morphine sulfate 2 mg IV PRN Continued donepezil 10 mg daily for underlying dementia Continue mirtazapine 15 mg at night for depression CT brain revealed no acute intracranial findings CV: Severe sepsis with multisystem organ failure Atrial fibrillation with rapid ventricular response Cardiomyopathy with EF 25-30% Congestive heart failure Lactic acidosis Elevated troponin History of endovascular aortic grafting Monitor HR and BP keep MAP>65mmHg Lactic acid 1.5 on 07/21 On metoprolol 25 mg BID Mild elevated trop. TSH - 1.1 Echo: EF 25-30% Resp: Acute respiratory insufficiency secondary to health care associated pneumonia Pulmonary edema Currently on simple mask at 10 L to maintain sats> 92% Albuterol/ipratropium aerosols every 6 hours with albuterol aerosols every 2 hours. Dyspnea CXR today showed diffuse consolidation. Check ABG GI: Elevated transaminases likely secondary to shock liver Gastroesophageal reflux disease Constipation with fecal impaction Hypoalbuminemia CT abdomen/pelvis revealed nonobstructive bowel gas pattern, stool in the rectum , bilateral lower lobe infiltrates in a endovascular aortic stent graft Pantoprazole for GI prophylaxis Docusate sodium/senna 1 tablet twice a day for bowel regimen Check KUB today. KUB on 07.21: suspected dilation of right colon : ALESHIA Rhabdo Monitor renal function, I/O's, avoid nephrotoxins Cr: 3.12 yesterday from 3.46, check BMP today. UOP: 1900ml in 24 hrs Urine eosinophils negative Decrease IVF 1/2NS@75ml/hr, s/p Lasix 80mg x1 yesterday On Lasix 40mg IV Q6 Endo: Sliding-scale insulin with Accu-Cheks before meals and at bedtime to maintain euglycemia Novulog Heme: Thrombocytopenia Normocytic anemia Elevated INR/PTT - Chronic Rivaroxaban use 10 mg daily- held Monitor CBC daily. Follow trends No indication for transfusion of blood products at this time Continue ferrous sulfate 325 mg by mouth daily ID: Received cefepime and vancomycin ED Continue with vancomycin, aztreonam, levofloxacin and metronidazole Blood cultures 2, urine Legionella pneumococcal antigen, influenza and sputum all neg to date. UA was negative though culture has been sent. No nitrates or leukocyte esterase MSK: Recent left hip hemiarthroplasty Continue cholecalciferol 2000 units daily PT evaluate and treat Access: - Utilize peripheral IV. Central line if indicated Prophylaxis - GI - pantoprazole - DVT - SCDs/ Heparin SQ Palliative care following. Patient was made DNR and Hospice service consulted. Level 3 Patient remains critically ill. Prognosis extremely poor with EF 25% advanced age. Ken Duarte MD Jul 22, 2017 07:18
[2017-07-22] MEDS ORDERED: DEXTROSE 50% IN WATER 50 ML SYRINGE ONE (07:35)
[2017-07-22 07:37] LABS: ALBUMIN 1.8 GM/DL (3.4-5.0); AST (GOT) 146 U/L (15-37); BICARBONATE 17.6 MEQ/L (21.0-32.0); BLOOD UREA NITROGEN 87 MG/DL (7-18); CALCIUM 7.8 MG/DL (8.5-10.1); CHLORIDE 109 MEQ/L (98-107); CREATININE 3.06 MG/DL (0.60-1.30); GLOMERULAR FILTRATION RATE 19 ML/MIN (>89); GLUCOSE,RANDOM 65 MG/DL (74-106); MAGNESIUM 1.6 MG/DL (1.5-2.5); SODIUM (NA) 139 MEQ/L (136-145)
[2017-07-22 07:41] LABS: ALKALINE PHOSPHATASE 87 U/L (45-117); ALT (GPT) 161 U/L (12-78); RANDOM VANCOMYCIN 16.3 COMMENT; TOTAL BILIRUBIN ADULT 1.1 MG/DL (0.2-1.0); TOTAL PROTEIN 4.7 GM/DL (6.4-8.2)
[2017-07-22] MEDS: INSULIN ASPART SUPPLEMENTAL SCALE SQ SCH (08:00)
[2017-07-22 08:37] LABS: BANDS 21 % (0-6); LYMPHOCYTES 2 % (9-44); METAMYELOCYTES 1 % (0-1); MONOCYTES 1 % (0-8); NEUTROPHIL # MANUAL DIFF 17.7 TH/MM3 (1.8-7.7); POLYS (SEG NEUTROPHILS) 75 % (16-70)
[2017-07-22 08:38] LABS: OVALOCYTES 1+ (NORMAL)
[2017-07-22 08:39] LABS: TOXIC GRANULATION 2+ (NORMAL)
[2017-07-22 08:40] LABS: KERATOCYTES OCC (NORMAL)
[2017-07-22] MEDS: DOCUSATE SODIUM 50 MG/SENNA 8.6 MG TAB PO SCH (09:00)
[2017-07-22] MEDS: ARTIFICIAL TEARS OPTH SOLN 15 ML BTL EACH EYE SCH ×2 (09:00→13:00)
[2017-07-22] MEDS: SODIUM CHLORIDE 0.9% FLUSH 10 ML FLUSH IV FLUSH SCH (09:00)
[2017-07-22] MEDS: METOPROLOL TARTRATE 25 MG TAB PO SCH (09:00)
--- NOTE | 2017-07-22 09:10 | RADRPT ---
EXAM DATE/TIME: 07/22/2017 07:50 [facility] COMPARISON: ABDOMEN KUB ONLY, July 21, 2017, 3:31. INDICATIONS : Abdominal distention. Evaluate for ileus. MEDICAL HISTORY : Gastroesophageal reflux disease. Cardiovascular disease. Hypertension. Dementia. SURGICAL HISTORY : None. ENCOUNTER: Subsequent ACUITY: 4 - 6 days PAIN SCORE: Non-responsive. LOCATION: abdomen FINDINGS: Left hip total prosthesis arthroplasty noted in place with degenerative changes of thoracolumbar spin e. Aortoiliac stent in place. Bibasilar pulmonary opacities representing effusion and possible left l ower lobe retrocardiac consolidation are stable. Bowel distribution is benign air in the colon withou t disproportionate air in small bowel and not dilatation. CONCLUSION: Benign abdomen John Spain MD on July 22, 2017 at 9:05 Board Certified Radiologist. This report was verified electronically.
[2017-07-22 09:34] LABS: INTERNATIONAL NORMALIZED RATIO 1.8 RATIO; PROTHROMBIN TIME - PATIENT 17.8 SEC (9.8-11.6)
[2017-07-22] MEDS ORDERED: HALOPERIDOL LACTATE 5 MG/ML AMP IV PUSH PRN (10:30)
[2017-07-22] MEDS ORDERED: MORPHINE SULFATE 2 MG/ML INJ IV PUSH PRN (10:30)
[2017-07-22] MEDS ORDERED: MORPHINE SULFATE 4 MG/ML INJ IV PUSH PRN (10:30)
--- NOTE | 2017-07-22 10:58 | HHI.HCPN ---
Reason for visit a. To assist with evaluation and management of symptoms including: pain, agitation, confusion. b. To assist medical decision maker(s) with: better understanding of current medical conditions; weighing benefits/burdens of medical treatment options; making medical treatment decisions. . Subjective/Interval History Mr. Will is an 87 year old male with past medical history of dementia, chronic afib, hypertension, GERD, renal insufficiency. He presented to [facility] with fevers and AMS from his SNF; he was found to be in afib/RVR but also had signs of multisystem failure with decreased urine output, creatinine >3, elevated transaminases and worsening pneumonia. Call from nurse to report patient declining, may need intubation as he is requiring more oxygen. Nurse reports [facility] caser provided contact information for 2 daughters in [place]. Patient seen and examined in ICU. No family/friends present. He remains demented and unable to answer any questions; today he is in respiratory distress but still does not follow commands and becomes quite agitated with stimulation. Oxygen needs have increased from oxygen via NC on 07/21 to 12 liters via simple mask today. When stimulated or removes mask patient desaturates into the mid to upper 80s. Heart rate has increased to 150s in rapid A. Fib. WBC continues to rise, now 18.2. Renal and liver function remain elevated. Albumin 1.8. Chest xray worsening with diffuse consolidation, possible edema and bilateral effusions. Patient appears to be rapidly declining. Appropriate for hospice services if family goals are comfort oriented. Patient is unable to make his own decisions. . Family/friend interactions Spoke with Stephie Anaya [facility] caser who indicates she is able to serve as HCP, though can only support aggressive goals. Asked if children are able to be invited to serve as HCP decision makers as per [place] statutes, she tells me yes that would be preferred. Patient has two daughters residing in [place]. Telephone conversation with both daughters (Gabby and Sonia) who wish to participate in medical decision making for their father. Gabby Gonsales ([phone] and Sonia Bryant ([phone] are two of three surviving children; they report that their brother has been estranged for over 20 years and do not have contact information for him. They report that they have been trying to locate their father and obtain an update on his medical condition but due to the holiday weekend they have been unable to get in touch with the [facility] caser until this morning. Both daughters agree that DNR status, which they pursued on a previous hospital stay at a different acute care facility, remains their desire since when their father was able to converse, they did have discussions about life support and both agree that this would be consistent with their father's wishes. Gabby's email (she is the primary contact manager) is [email or web address]. Advance Directives Living Will: Never completed Health Care Surrogate: Never completed Durable Power of Nurse Advocate: Never completed Advance Directive Specifics Health Care Surrogate(s): Patient does not have capacity to make his own decisions and is unlikely to regain capacity. Per [place] statutes, decision making would then fall to the majority of adult children. Patient has three living children but one son has been estranged for over 20 years and no contact information is available for him. The two remaining daughters are Sonia Bryant and Gabby Gonsales, both of whom reside in [facility]. They are in agreement on pursuit of their father' s wishes for no life support and comfort measures. Gabby's contact information: [phone] Sonia's contact information: [phone] Gabby's email: [email or web address] (Gabby is designated as the primary contact manager.) Significant change in goals: NO CODE (DNR/DNI). Transition to comfort care after conversation with two adult daughters residing in [facility] who both agree that this is in accordance with their father's wishes. Objective Vital Signs Date Time Temp Pulse Resp B/P (MAP) Pulse Ox O2 Delivery O2 Flow Rate FiO2 07/22/17 09:25 92 Simple Mask 12.00 07/22/17 04:00 98.6 117 32 99/62 (74) 100 07/22/17 00:00 98.3 128 28 123/58 (79) 100 07/21/17 20:00 98.1 108 24 112/63 (79) 100 07/21/17 19:54 99 Nasal Cannula 4.00 07/21/17 18:00 110 07/21/17 16:00 98.4 105 26 126/61 (82) 82 07/21/17 16:00 110 07/21/17 14:00 110 1/15/18 12:00 110 07/21/17 12:00 98.3 104 21 119/87 (98) 96 Intake & Output 07/22/17 07/22/17 07:00 19:00 Intake Total 992 ml Output Total 1200 ml Balance -208 ml Intake Oral 0 ml IV Total 992 ml Output Urine Total 1200 ml # Bowel Movements 0 Physical Exam CONSTITUTIONAL/GENERAL: This is a thin elderly male resting in bed; he startles and becomes agitated with both tactile and auditory stimulation TUBES/LINES/DRAINS: PIV, O2 via simple mask; Mcconnell; SCDs; podus boots SKIN: No jaundice, rashes, or lesions. Bilateral heel ulcers; right foot with eschar; left foot open with minimal drainage EYES: Pupils equal and round and reactive. Extraocular motions intact. No scleral icterus. No injection or drainage. Conjunctivae reddened. ENT: Hearing grossly normal. Nose without bleeding or purulent drainage Edentulous; oral mucosa parched and dry CARDIOVASCULAR: tachycardic and irregular; no murmurs appreciated RESPIRATORY/CHEST: Symmetric, unlabored respirations but some tachypnea; bilateral fine crackles on right side; generally clear on left; poor inspiratory effort GASTROINTESTINAL: Abdomen soft, non-tender, not distended; no guarding or rebound GENITOURINARY: Without palpable bladder distension. Mcconnell catheter in place draining clear pale kishan MUSCULOSKELETAL: Extremities without clubbing, right foot is cool and mildly cyanotic but left foot is warm; he yells with any hip movement on either side NEUROLOGICAL: Does not follow commands, spontaneously open eyes, or answer questions. He does exhibit awareness of tactile stimulation with mild yelling and has some spontaneous movement x 4 PSYCHIATRIC: he is fidgety but generally peaceful at rest; becomes agitated with stimulation. . Diagnostic Tests Laboratory Laboratory Tests Test 07/19/17 10:50 07/19/17 10:59 07/19/17 17:35 07/19/17 18:54 White Blood Count 21.8 TH/MM3 (4.0-11.0) Red Blood Count 3.36 MIL/MM3 (4.50-5.90) Hemoglobin 9.5 GM/DL (13.0-17.0) Hematocrit 30.6 % (39.0-51.0) Mean Corpuscular Volume 91.2 FL (80.0-100.0) Mean Corpuscular Hemoglobin 28.4 PG (27.0-34.0) Mean Corpuscular Hemoglobin Concent 31.1 % (32.0-36.0) Red Cell Distribution Width 17.0 % (11.6-17.2) Platelet Count 190 TH/MM3 (150-450) Mean Platelet Volume 8.6 FL (7.0-11.0) Neutrophils (%) (Auto) 91.7 % (16.0-70.0) Lymphocytes (%) (Auto) 4.4 % (9.0-44.0) Monocytes (%) (Auto) 3.6 % (0.0-8.0) Eosinophils (%) (Auto) 0.1 % (0.0-4.0) Basophils (%) (Auto) 0.2 % (0.0-2.0) Neutrophils # (Auto) 20.0 TH/MM3 (1.8-7.7) Lymphocytes # (Auto) 0.9 TH/MM3 (1.0-4.8) Monocytes # (Auto) 0.8 TH/MM3 (0-0.9) Eosinophils # (Auto) 0.0 TH/MM3 (0-0.4) Basophils # (Auto) 0.0 TH/MM3 (0-0.2) CBC Comment DIFF FINAL Differential Comment Prothrombin Time 15.5 SEC (9.8-11.6) Prothromb Time International Ratio 1.5 RATIO Activated Partial Thromboplast Time 31.7 SEC (24.3-30.1) Fibrinogen 586 mg/dL (227-377) Blood Urea Nitrogen 91 MG/DL (7-18) Creatinine 3.60 MG/DL (0.60-1.30) Random Glucose 112 MG/DL (74-106) Total Protein 6.6 GM/DL (6.4-8.2) Albumin 2.2 GM/DL (3.4-5.0) Calcium Level 9.4 MG/DL (8.5-10.1) Magnesium Level 2.1 MG/DL (1.5-2.5) Alkaline Phosphatase 119 U/L (45-117) Aspartate Amino Transf (AST/SGOT) 306 U/L (15-37) Alanine Aminotransferase (ALT/SGPT) 97 U/L (12-78) Total Bilirubin 1.3 MG/DL (0.2-1.0) Sodium Level 147 MEQ/L (136-145) Potassium Level 5.8 MEQ/L (3.5-5.1) 4.4 MEQ/L (3.5-5.1) Chloride Level 110 MEQ/L (98-107) Carbon Dioxide Level 19.1 MEQ/L (21.0-32.0) Anion Gap 18 MEQ/L (5-15) Estimat Glomerular Filtration Rate 16 ML/MIN (>89) Lactic Acid Level 9.0 mmol/L (0.4-2.0) 7.2 mmol/L (0.4-2.0) Total Creatine Kinase 620 U/L (39-308) Creatine Kinase MB 7.6 NG/ML (0.5-3.6) Creatine Kinase MB % 1.2 % (0.0-4.0) Troponin I 0.16 NG/ML (0.02-0.05) 0.22 NG/ML (0.02-0.05) Urine Color DARK-YELLOW (YELLW/STRAW) Urine Turbidity HAZY (CLEAR) Urine pH 5.0 (5.0-8.5) Urine Specific [place] 1.020 (1.002-1.035) Urine Protein TRACE mg/dL (NEG-TRACE) Urine Glucose (UA) NEG mg/dL (NEG) Urine Ketones NEG mg/dL (NEG) Urine Occult Blood LARGE (NEG) Urine Nitrite NEG (NEG) Urine Bilirubin NEG (NEG) Urine Urobilinogen LESS THAN 2.0 MG/DL (LESS Urine Leukocyte Esterase NEG (NEG) Urine RBC 1 /hpf (0-3) Urine WBC 3 /hpf (0-5) Urine Amorphous Sediment OCC Urine Bacteria RARE /hpf (NONE) Urine Hyaline Casts 1 /lpf (RARE) Microscopic Urinalysis Comment CATH-CULTURE IND Test 07/19/17 23:00 07/19/17 23:42 07/20/17 03:35 07/21/17 06:18 Urine Eosinophils NONE SEEN /HPF (NONE SEEN) Urine Random Creatinine 103.5 MG/DL Urine Random Sodium 48 MEQ/L Troponin I 0.25 NG/ML (0.02-0.05) Thyroid Stimulating Hormone 3rd Gen 1.100 uIU/ML (0.358-3.740) White Blood Count 10.5 TH/MM3 (4.0-11.0) Red Blood Count 2.74 MIL/MM3 (4.50-5.90) Hemoglobin 7.9 GM/DL (13.0-17.0) Hematocrit 24.2 % (39.0-51.0) Mean Corpuscular Volume 88.4 FL (80.0-100.0) Mean Corpuscular Hemoglobin 29.0 PG (27.0-34.0) Mean Corpuscular Hemoglobin Concent 32.8 % (32.0-36.0) Red Cell Distribution Width 17.4 % (11.6-17.2) Platelet Count 138 TH/MM3 (150-450) Mean Platelet Volume 8.4 FL (7.0-11.0) Neutrophils (%) (Auto) 89.6 % (16.0-70.0) Lymphocytes (%) (Auto) 6.0 % (9.0-44.0) Monocytes (%) (Auto) 3.5 % (0.0-8.0) Eosinophils (%) (Auto) 0.8 % (0.0-4.0) Basophils (%) (Auto) 0.1 % (0.0-2.0) Neutrophils # (Auto) 9.4 TH/MM3 (1.8-7.7) Lymphocytes # (Auto) 0.6 TH/MM3 (1.0-4.8) Monocytes # (Auto) 0.4 TH/MM3 (0-0.9) Eosinophils # (Auto) 0.1 TH/MM3 (0-0.4) Basophils # (Auto) 0.0 TH/MM3 (0-0.2) CBC Comment DIFF FINAL Differential Comment Prothrombin Time 17.1 SEC (9.8-11.6) Prothromb Time International Ratio 1.7 RATIO Activated Partial Thromboplast Time 37.1 SEC (24.3-30.1) Blood Urea Nitrogen 96 MG/DL (7-18) Creatinine 3.46 MG/DL (0.60-1.30) Random Glucose 97 MG/DL (74-106) Total Protein 5.0 GM/DL (6.4-8.2) Albumin 1.7 GM/DL (3.4-5.0) Calcium Level 8.2 MG/DL (8.5-10.1) Phosphorus Level 2.3 MG/DL (2.5-4.9) Magnesium Level 1.8 MG/DL (1.5-2.5) Alkaline Phosphatase 93 U/L (45-117) Aspartate Amino Transf (AST/SGOT) 810 U/L (15-37) Alanine Aminotransferase (ALT/SGPT) 365 U/L (12-78) Total Bilirubin 1.0 MG/DL (0.2-1.0) Sodium Level 152 MEQ/L (136-145) Potassium Level 3.8 MEQ/L (3.5-5.1) Chloride Level 117 MEQ/L (98-107) Carbon Dioxide Level 24.6 MEQ/L (21.0-32.0) Anion Gap 10 MEQ/L (5-15) Estimat Glomerular Filtration Rate 17 ML/MIN (>89) Lactic Acid Level 2.3 mmol/L (0.4-2.0) 1.5 mmol/L (0.4-2.0) Ammonia LESS THAN 10 MCMOL/L Lactate Dehydrogenase 547 U/L (87-241) Total Creatine Kinase 736 U/L (39-308) Creatine Kinase MB 8.5 NG/ML (0.5-3.6) Creatine Kinase MB % 1.2 % (0.0-4.0) Random Vancomycin Level 12.2 COMMENT Hepatitis A IgM Antibody NEGATIVE (NEGATIVE) Hepatitis B Surface Antigen NEGATIVE (NEGATIVE) Hepatitis B Core IgM Antibody NEGATIVE (NEGATIVE) Hepatitis C Antibody NEGATIVE (NEGATIVE) Test 07/21/17 06:20 07/22/17 06:42 07/22/17 07:12 07/22/17 09:12 White Blood Count 11.6 TH/MM3 (4.0-11.0) 18.2 TH/MM3 (4.0-11.0) Red Blood Count 2.58 MIL/MM3 (4.50-5.90) 2.94 MIL/MM3 (4.50-5.90) Hemoglobin 7.4 GM/DL (13.0-17.0) 8.2 GM/DL (13.0-17.0) Hematocrit 22.9 % (39.0-51.0) 26.7 % (39.0-51.0) Mean Corpuscular Volume 88.9 FL (80.0-100.0) 91.0 FL (80.0-100.0) Mean Corpuscular Hemoglobin 28.8 PG (27.0-34.0) 28.0 PG (27.0-34.0) Mean Corpuscular Hemoglobin Concent 32.4 % (32.0-36.0) 30.8 % (32.0-36.0) Red Cell Distribution Width 17.4 % (11.6-17.2) 17.7 % (11.6-17.2) Platelet Count 118 TH/MM3 (150-450) 129 TH/MM3 (150-450) Mean Platelet Volume 8.9 FL (7.0-11.0) 8.8 FL (7.0-11.0) Neutrophils (%) (Auto) 88.5 % (16.0-70.0) 90.7 % (16.0-70.0) Lymphocytes (%) (Auto) 5.4 % (9.0-44.0) 5.0 % (9.0-44.0) Monocytes (%) (Auto) 5.7 % (0.0-8.0) 3.8 % (0.0-8.0) Eosinophils (%) (Auto) 0.3 % (0.0-4.0) 0.4 % (0.0-4.0) Basophils (%) (Auto) 0.1 % (0.0-2.0) 0.1 % (0.0-2.0) Neutrophils # (Auto) 10.3 TH/MM3 (1.8-7.7) 16.5 TH/MM3 (1.8-7.7) Lymphocytes # (Auto) 0.6 TH/MM3 (1.0-4.8) 0.9 TH/MM3 (1.0-4.8) Monocytes # (Auto) 0.7 TH/MM3 (0-0.9) 0.7 TH/MM3 (0-0.9) Eosinophils # (Auto) 0.0 TH/MM3 (0-0.4) 0.1 TH/MM3 (0-0.4) Basophils # (Auto) 0.0 TH/MM3 (0-0.2) 0.0 TH/MM3 (0-0.2) CBC Comment DIFF FINAL AUTO DIFF Differential Comment FINAL DIFF MANUAL Blood Urea Nitrogen 90 MG/DL (7-18) 87 MG/DL (7-18) Creatinine 3.12 MG/DL (0.60-1.30) 3.06 MG/DL (0.60-1.30) Random Glucose 89 MG/DL (74-106) 65 MG/DL (74-106) Total Protein 4.7 GM/DL (6.4-8.2) 4.7 GM/DL (6.4-8.2) Albumin 2.0 GM/DL (3.4-5.0) 1.8 GM/DL (3.4-5.0) Calcium Level 8.1 MG/DL (8.5-10.1) 7.8 MG/DL (8.5-10.1) Phosphorus Level 2.6 MG/DL (2.5-4.9) Magnesium Level 1.7 MG/DL (1.5-2.5) 1.6 MG/DL (1.5-2.5) Alkaline Phosphatase 83 U/L (45-117) 87 U/L (45-117) Aspartate Amino Transf (AST/SGOT) 265 U/L (15-37) 146 U/L (15-37) Alanine Aminotransferase (ALT/SGPT) 216 U/L (12-78) 161 U/L (12-78) Total Bilirubin 1.1 MG/DL (0.2-1.0) 1.1 MG/DL (0.2-1.0) Sodium Level 145 MEQ/L (136-145) 139 MEQ/L (136-145) Potassium Level 3.7 MEQ/L (3.5-5.1) 4.0 MEQ/L (3.5-5.1) Chloride Level 114 MEQ/L (98-107) 109 MEQ/L (98-107) Carbon Dioxide Level 19.8 MEQ/L (21.0-32.0) 17.6 MEQ/L (21.0-32.0) Anion Gap 11 MEQ/L (5-15) 12 MEQ/L (5-15) Estimat Glomerular Filtration Rate 19 ML/MIN (>89) 19 ML/MIN (>89) Total Creatine Kinase 1098 U/L (39-308) 826 U/L (39-308) Creatine Kinase MB 21.8 NG/ML (0.5-3.6) 19.8 NG/ML (0.5-3.6) Creatine Kinase MB % 2.0 % (0.0-4.0) 2.4 % (0.0-4.0) Troponin I 0.17 NG/ML (0.02-0.05) Triglycerides Level 158 MG/DL (42-150) Cholesterol Level 68 MG/DL (120-200) LDL Cholesterol 28 MG/DL (0-99) HDL Cholesterol 8.2 MG/DL (40.0-60.0) Cholesterol/HDL Ratio 8.29 RATIO Differential Total Cells Counted 100 Neutrophils % (Manual) 75 % (16-70) Band Neutrophils % 21 % (0-6) Lymphocytes % 2 % (9-44) Monocytes % 1 % (0-8) Neutrophils # (Manual) 17.7 TH/MM3 (1.8-7.7) Metamyelocytes 1 % (0-1) Toxic Granulation 2+ (NORMAL) Ovalocytes 1+ (NORMAL) Keratocytes OCC (NORMAL) Random Vancomycin Level 16.3 COMMENT Blood Gas Puncture Site RT RADIAL Blood Gas Patient Temperature 98.6 Blood Gas HCO3 18 mmol/L (22-26) Blood Gas Base Excess -6.6 mmol/L (-2-2) Blood Gas Oxygen Saturation 93 % (90-100) Arterial Blood pH 7.35 (7.380-7.420) Arterial Blood Partial Pressure CO2 34 mmHg (38-42) Arterial Blood Partial Pressure O2 77 mmHg (61-120) Arterial Blood Oxygen Content 10.2 Vol % (12.0-20.0) Arterial Blood Carboxyhemoglobin 1.2 % (0-4) Arterial Blood Methemoglobin 1.1 % (0-2) Blood Gas Hemoglobin 7.7 G/DL (12.0-16.0) Oxygen Delivery Device SIMPLE MASK Blood Gas Liter Flow 10 L/M Prothrombin Time 17.8 SEC (9.8-11.6) Prothromb Time International Ratio 1.8 RATIO Result Diagram: 07/22/17 0642 07/22/17 0642 Microbiology Microbiology Date/Time Source Procedure Growth Status 07/19/17 10:50 Blood Peripheral Aerobic Blood Culture - Preliminary NO GROWTH IN 2 DAYS Resulted 07/19/17 10:50 Blood Peripheral Anaerobic Blood Culture - Preliminary NO GROWTH IN 2 DAYS Resulted 07/19/17 10:45 Blood Peripheral Aerobic Blood Culture - Preliminary NO GROWTH IN 2 DAYS Resulted 07/19/17 10:45 Blood Peripheral Anaerobic Blood Culture - Preliminary NO GROWTH IN 2 DAYS Resulted 07/19/17 19:54 Nasal Aspirate Influenza Types A,B Antigen (SHAHID) - Final NEGATIVE FOR FLU A AND B ANTIGEN.... Complete 07/19/17 10:59 Urine Catheterized Urine Urine Culture - Final NO GROWTH IN 48 HOURS. Complete Imaging Last Impressions Chest X-Ray 07/22/17 0600 Signed Impressions: Service Date/Time: Saturday, July 22, 2017 04:12 - CONCLUSION: Diffuse consolidation likely related to edema. The silhouetting of the hemidiaphragms may be secondary to bilateral effusions. Charli Landry MD Abdomen X-Ray 07/22/17 0000 Signed Impressions: Service Date/Time: Saturday, July 22, 2017 07:50 - CONCLUSION: Benign abdomen John Spain MD Liver Ultrasound 07/20/17 0000 Signed Impressions: Service Date/Time: Thursday, July 20, 2017 22:12 - CONCLUSION: 1. Gallstones with a mildly thickened gallbladder wall. This can be correlated with any clinical signs of possible cholecystitis. 2. Right renal cortical thinning would be secondary to medical renal disease. Charli Landry MD Abdomen/Pelvis CT 07/19/17 1206 Signed Impressions: Service Date/Time: Wednesday, July 19, 2017 12:40 - CONCLUSION: 1. Nonobstructive bowel gas pattern which could represent a mild ileus. There is a moderate to large amount of stool in the distal colon which could indicate constipation. 2. Dense consolidation in both lower lobes concerning for pneumonia. 3. The gallbladder is at the upper limits of normal in size. 4. Status post aortic stent graft placement. Young Armstrong MD Head CT 07/19/17 1046 Signed Impressions: Service Date/Time: Wednesday, July 19, 2017 11:31 - CONCLUSION: No acute intracranial findings. Chronic ischemic findings. Frantz Schulte MD Assessment and Plan Disease Oriented Problem List: (1) Pain (2) Dyspnea (3) Dysphagia (4) Dementia (5) Acute renal failure (6) Severe sepsis (7) Atrial fibrillation with RVR (8) Constipation (9) Anemia (10) Heel ulcer (11) Sacral decubitus ulcer (12) Chronic anticoagulation Symptom Scale: (1) Pain 0-10 Scale: Unable to quantify Comment: Inability to communicate consistently makes it difficult to assess pain; he does yell with any movement of hips or legs; has hydrocodone/APAP as well as morphine ordered PRN (2) Dyspnea 0-10 Scale: Unable to quantify Comment: On antibiotics and supplemental oxygen; still has frequent cough (3) Dementia 0-10 Scale: Unable to quantify Comment: Unable to communicate or to make needs known; unable to make self- care decisions (4) Dysphagia 0-10 Scale: Unable to quantify (Pureed diet; meds crushed in applesauce) Comment: Follow ST recommendations closely; pureed diet with meds crushed in applesauce Pertinent Non-Medical Issues Psychosocial: progressive dementia; was residing at [facility] prior to admission. From [place], never worked in [employer]. Moved here 24 years ago; widowered in the interim leaving no surviving family members locally Spiritual: none known. Legal: two adult daughters residing in [facility] are decision makers; they both support transition to comfort care with hospice services. Ethical issues impacting care: Patient does not have capacity to make his own decisions and is unlikely to regain capacity. Per [place] statutes, decision making would then fall to the majority of adult children. Patient has three living children but one son has been estranged for over 20 years and no contact information is available for him. The two remaining daughters are Sonia Bryant and Gabby Gonsales, both of whom reside in [facility]. They are in agreement on pursuit of their father's wishes for no life support and comfort measures. Gabby's contact information: [phone] Sonai's contact information: [phone] Gabby's email: [email or web address] (Gabby is designated as the primary contact manager.) . Important Contacts * Gabby Gonsales, daughter/co-HCP: ([phone] ) lives in [place] --- contact first per family request. * Sonia Bryant, daughter/co-HCP: ([phone] ) lives in [place] * Stephie Bal [phone] -- DCF Licensing Registration Examiner Daughter Gabby's email: [email or web address] Prognosis Elderly frail gentleman with multisystem failure and worsening dementia; unable to participate in self care decisions. Prognosis at this time appears to be hours to days; PPS 20 Code Status: No Code Plan * Patient does not have capacity to make his own decisions and is unlikely to regain capacity. Per [place] statutes, decision making would then fall to the majority of adult children. Patient has three living children but one son has been estranged for over 20 years and no contact information is available for him. The two remaining daughters are Sonia Bryant and Gabby Gonsales, both of whom reside in [facility]. * Spoke with both daughters who live in [facility] by phone; they are fully supportive of transition of goals to comfort and peaceful . Will consult hospice; change code status; implement meds for control of pain and agitation * NO CODE (DNR/DNI) * Discussed with nurse, Sera, caser Dr. Leonel Smith and Soheila, data warehouse manager. * SYMPTOMS: Pain: sources include bedbound status, pressure ulcers, sacral decub. Pain med orders written. Dyspnea: increasing oxygen needs. Orders written for comfort meds. Agitation: agitated with minimal voice or contact. unable to answer questions or follow commands. Added Haldol and Lorazepam for anxiety/ agitation. * Palliative care will continue to follow to facilitate transition to comfort care Attestation To help prompt me to consider important information that might be impacting today's encounter and assessment, information from prior notes written by myself or my colleagues may have been "brought forward" into today's note. My signature on this note, however, is an attestation that I personally performed the exam, history, and/or decision-making noted today, and, unless otherwise indicated, the interactions with patient, family, and staff as well as the review of records all occurred today. I also attest that the listed assessment and stated plan reflect my best clinical judgment today based on the combination of historical information, prior notes, and today's exam/ interactions. When time spent is documented, it refers only to time spent today by the signer, or if indicated, combined time spent today by collaborating physician/nurse practitioner. Randee Damon Jul 22, 2017 10:58
[2017-07-22] MEDS ORDERED: LORazepam 2 MG/ML VIAL IV PUSH PRN ×2 (11:00)
[2017-07-22] MEDS ORDERED: HYOSCYAMINE 0.5 MG/ML AMP IV PUSH PRN (11:00)
[2017-07-22] MEDS ORDERED: VANCOMYCIN 1,000 MG/NS 250 ML IV ONE ×2 (11:00)
[2017-07-22] MEDS ORDERED: ACETAMINOPHEN 650 MG SUPP RECTAL PRN (11:00)
--- NOTE | 2017-07-22 21:16 | HHI.DS ---
Summary Note Date of : Jul 22, 2017 Time Of : 1509 Admission Date Jul 19, 2017 at 13:07 Admitting Diagnosis severe sepsis/A. 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 ICD Code: Z95.828 - Presence of other vascular implants and grafts Diagnosis: Secondary (6) Sacral decubitus ulcer ICD Code: L89.159 - Pressure ulcer of sacral region, unspecified stage Diagnosis: Secondary (7) Heel ulcer ICD Code: L97.409 - Non-pressure chronic ulcer of unspecified heel and midfoot with unspecified severity Diagnosis: Secondary (8) Alzheimer's dementia ICD Code: G30.9 - Alzheimer's disease, unspecified Diagnosis: Principal (9) Depression ICD Code: F32.9 - Major depressive disorder, single episode, unspecified Diagnosis: Secondary (10) Elevated partial thromboplastin time (PTT) ICD Code: R79.1 - Abnormal coagulation profile Diagnosis: Secondary (11) Elevated INR ICD Code: R79.1 - Abnormal coagulation profile Diagnosis: Secondary (12) Acute hypernatremia ICD Code: E87.0 - Hyperosmolality and hypernatremia Diagnosis: Secondary (13) Gastroesophageal reflux disease ICD Code: K21.9 - Gastro-esophageal reflux disease without esophagitis Diagnosis: Secondary (14) Chronic anticoagulation ICD Code: Z79.01 - terminal supervisor (current) use of anticoagulants Diagnosis: Secondary (15) Acute kidney injury ICD Code: N17.9 - Acute kidney failure, unspecified Diagnosis: Secondary (16) Lactic acidosis ICD Code: E87.2 - Acidosis Diagnosis: Secondary (17) Elevated levels of transaminase & lactic acid dehydrogenase ICD Code: R74.0 - Nonspecific elevation of levels of transaminase and lactic acid dehydrogenase [LDH] Diagnosis: Secondary (18) Constipation ICD Code: K59.00 - Constipation, unspecified Diagnosis: Secondary (19) Severe sepsis ICD Code: A41.9 - Sepsis, unspecified organism; R65.20 - Severe sepsis without septic shock Diagnosis: Secondary (20) Atrial fibrillation with RVR ICD Code: I48.91 - Unspecified atrial fibrillation Diagnosis: Secondary (21) Healthcare-associated pneumonia ICD Code: J18.9 - Pneumonia, unspecified organism Diagnosis: Secondary Brief History 87-year-old male. Date of admission 07/19/2017. Past medical history includes dementia disorder, chronic atrial fibrillation, hypertension, chronic anticoagulation, gastroesophageal reflux disease, constipation. Patient is a resident of [facility]. Patient presents to [facility] after subacute onset of fevers, altered mental status. Patient was transported per senior living request. Patient is noted to be in A. fib with RVR heart rate in the 140s. Pelvic revealed a creatinine of 3.6. Potassium of 5.8. White blood cell count 21, 000. Elevated INR and PTT, lactic acidosis of 9.0, elevated transaminases, elevated CPK and troponin and low albumin. CT abdomen/pelvis revealed fecal impaction, nonobstructive bowel gas pattern in an old aortic graft stent. Chest x-ray revealed bilateral lower lobe pneumonia. Patient received cefepime and vancomycin in the emergency department. We are asked to admit the patient. He is currently awake and pleasantly confused on 3 L nasal cannula CBC/BMP: 07/22/17 0642 07/22/17 0642 Significant Findings Laboratory Tests Test 07/19/17 23:00 07/19/17 23:42 07/20/17 03:35 07/21/17 06:18 Troponin I 0.25 NG/ML (0.02-0.05) Red Blood Count 2.74 MIL/MM3 (4.50-5.90) Hemoglobin 7.9 GM/DL (13.0-17.0) Hematocrit 24.2 % (39.0-51.0) Red Cell Distribution Width 17.4 % (11.6-17.2) Platelet Count 138 TH/MM3 (150-450) Neutrophils (%) (Auto) 89.6 % (16.0-70.0) Lymphocytes (%) (Auto) 6.0 % (9.0-44.0) Neutrophils # (Auto) 9.4 TH/MM3 (1.8-7.7) Lymphocytes # (Auto) 0.6 TH/MM3 (1.0-4.8) Prothrombin Time 17.1 SEC (9.8-11.6) Activated Partial Thromboplast Time 37.1 SEC (24.3-30.1) Blood Urea Nitrogen 96 MG/DL (7-18) Creatinine 3.46 MG/DL (0.60-1.30) Total Protein 5.0 GM/DL (6.4-8.2) Albumin 1.7 GM/DL (3.4-5.0) Calcium Level 8.2 MG/DL (8.5-10.1) Phosphorus Level 2.3 MG/DL (2.5-4.9) Aspartate Amino Transf (AST/SGOT) 810 U/L (15-37) Alanine Aminotransferase (ALT/SGPT) 365 U/L (12-78) Sodium Level 152 MEQ/L (136-145) Chloride Level 117 MEQ/L (98-107) Estimat Glomerular Filtration Rate 17 ML/MIN (>89) Lactic Acid Level 2.3 mmol/L (0.4-2.0) Ammonia LESS THAN 10 MCMOL/L Lactate Dehydrogenase 547 U/L (87-241) Total Creatine Kinase 736 U/L (39-308) Creatine Kinase MB 8.5 NG/ML (0.5-3.6) Test 07/21/17 06:20 07/22/17 06:42 07/22/17 07:12 07/22/17 09:12 White Blood Count 11.6 TH/MM3 (4.0-11.0) 18.2 TH/MM3 (4.0-11.0) Red Blood Count 2.58 MIL/MM3 (4.50-5.90) 2.94 MIL/MM3 (4.50-5.90) Hemoglobin 7.4 GM/DL (13.0-17.0) 8.2 GM/DL (13.0-17.0) Hematocrit 22.9 % (39.0-51.0) 26.7 % (39.0-51.0) Red Cell Distribution Width 17.4 % (11.6-17.2) 17.7 % (11.6-17.2) Platelet Count 118 TH/MM3 (150-450) 129 TH/MM3 (150-450) Neutrophils (%) (Auto) 88.5 % (16.0-70.0) 90.7 % (16.0-70.0) Lymphocytes (%) (Auto) 5.4 % (9.0-44.0) 5.0 % (9.0-44.0) Neutrophils # (Auto) 10.3 TH/MM3 (1.8-7.7) 16.5 TH/MM3 (1.8-7.7) Lymphocytes # (Auto) 0.6 TH/MM3 (1.0-4.8) 0.9 TH/MM3 (1.0-4.8) Blood Urea Nitrogen 90 MG/DL (7-18) 87 MG/DL (7-18) Creatinine 3.12 MG/DL (0.60-1.30) 3.06 MG/DL (0.60-1.30) Total Protein 4.7 GM/DL (6.4-8.2) 4.7 GM/DL (6.4-8.2) Albumin 2.0 GM/DL (3.4-5.0) 1.8 GM/DL (3.4-5.0) Calcium Level 8.1 MG/DL (8.5-10.1) 7.8 MG/DL (8.5-10.1) Aspartate Amino Transf (AST/SGOT) 265 U/L (15-37) 146 U/L (15-37) Alanine Aminotransferase (ALT/SGPT) 216 U/L (12-78) 161 U/L (12-78) Total Bilirubin 1.1 MG/DL (0.2-1.0) 1.1 MG/DL (0.2-1.0) Chloride Level 114 MEQ/L (98-107) 109 MEQ/L (98-107) Carbon Dioxide Level 19.8 MEQ/L (21.0-32.0) 17.6 MEQ/L (21.0-32.0) Estimat Glomerular Filtration Rate 19 ML/MIN (>89) 19 ML/MIN (>89) Total Creatine Kinase 1098 U/L (39-308) 826 U/L (39-308) Creatine Kinase MB 21.8 NG/ML (0.5-3.6) 19.8 NG/ML (0.5-3.6) Troponin I 0.17 NG/ML (0.02-0.05) Triglycerides Level 158 MG/DL (42-150) Cholesterol Level 68 MG/DL (120-200) HDL Cholesterol 8.2 MG/DL (40.0-60.0) Mean Corpuscular Hemoglobin Concent 30.8 % (32.0-36.0) Neutrophils % (Manual) 75 % (16-70) Band Neutrophils % 21 % (0-6) Lymphocytes % 2 % (9-44) Neutrophils # (Manual) 17.7 TH/MM3 (1.8-7.7) Toxic Granulation 2+ (NORMAL) Ovalocytes 1+ (NORMAL) Random Glucose 65 MG/DL (74-106) Blood Gas HCO3 18 mmol/L (22-26) Blood Gas Base Excess -6.6 mmol/L (-2-2) Arterial Blood pH 7.35 (7.380-7.420) Arterial Blood Partial Pressure CO2 34 mmHg (38-42) Arterial Blood Oxygen Content 10.2 Vol % (12.0-20.0) Blood Gas Hemoglobin 7.7 G/DL (12.0-16.0) Prothrombin Time 17.8 SEC (9.8-11.6) Imaging Last Impressions Chest X-Ray 07/22/17 0600 Signed Impressions: Service Date/Time: Saturday, July 22, 2017 04:12 - CONCLUSION: Diffuse consolidation likely related to edema. The silhouetting of the hemidiaphragms may be secondary to bilateral effusions. Charli Landry MD Abdomen X-Ray 07/21/17 0600 Signed Impressions: Service Date/Time: Friday, July 21, 2017 03:31 - CONCLUSION: Suspected dilatation of the right-sided colon. Charli Landry MD Liver Ultrasound 07/20/17 0000 Signed Impressions: Service Date/Time: Thursday, July 20, 2017 22:12 - CONCLUSION: 1. Gallstones with a mildly thickened gallbladder wall. This can be correlated with any clinical signs of possible cholecystitis. 2. Right renal cortical thinning would be secondary to medical renal disease. Charli Landry MD Abdomen/Pelvis CT 07/19/17 1206 Signed Impressions: Service Date/Time: Wednesday, July 19, 2017 12:40 - CONCLUSION: 1. Nonobstructive bowel gas pattern which could represent a mild ileus. There is a moderate to large amount of stool in the distal colon which could indicate constipation. 2. Dense consolidation in both lower lobes concerning for pneumonia. 3. The gallbladder is at the upper limits of normal in size. 4. Status post aortic stent graft placement. Young Armstrong MD Head CT 07/19/17 1046 Signed Impressions: Service Date/Time: Wednesday, July 19, 2017 11:31 - CONCLUSION: No acute intracranial findings. Chronic ischemic findings. Frantz Schulte MD Hospital Course Patient was admitted with fever, AMS. He was found to have pneumonia and multisystem organ failure. He continued to decline with worsening respiratory distress and family elected to transition to comfort measures. They elected NO CODE (DNR/DNI) status. Admitted to hospice for comfort measures. He peacefully. . Randee Damon Jul 22, 2017 21:16
== END 2017-07-22 15:09 | disposition expired | DRG 871 ==
LOC: NEPE 10:03 → NEDA 13:07 → HIMN 16:37
PROVIDERS: ADMIT Internal Medicine Critical Care Medicine; ATTEND Internal Medicine Critical Care Medicine
DX: A41.9 Sepsis, unspecified organism (principal); J18.9 Pneumonia, unspecified organism; K72.00 Acute and subacute hepatic failure without coma; N17.9 Acute kidney failure, unspecified; G93.40 Encephalopathy, unspecified; I11.0 Hypertensive heart disease with heart failure; L89.151 Pressure ulcer of sacral region, stage 1; E87.0 Hyperosmolality and hypernatremia; E87.2 Acidosis; I50.9 Heart failure, unspecified; I42.9 Cardiomyopathy, unspecified; M62.82 Rhabdomyolysis; R13.10 Dysphagia, unspecified; E88.09 Other disorders of plasma-protein metabolism, not elsewhere classified; I48.2 Chronic atrial fibrillation; E86.0 Dehydration; F32.9 Major depressive disorder, single episode, unspecified; G30.9 Alzheimer's disease, unspecified; F02.80 Dementia in other diseases classified elsewhere, unspecified severity, without behavioral disturbance, psychotic disturbance, mood disturbance, and anxiety; D64.9 Anemia, unspecified; K21.9 Gastro-esophageal reflux disease without esophagitis; R65.20 Severe sepsis without septic shock; Y95 Nosocomial condition; M19.90 Unspecified osteoarthritis, unspecified site; M81.0 Age-related osteoporosis without current pathological fracture; L89.621 Pressure ulcer of left heel, stage 1; R06.03 Acute respiratory distress; D69.6 Thrombocytopenia, unspecified; L89.611 Pressure ulcer of right heel, stage 1; K56.41 Fecal impaction; E87.5 Hyperkalemia; Z51.5 Encounter for palliative care; Z66 Do not resuscitate; Z95.1 Presence of aortocoronary bypass graft; Z79.01 Long term (current) use of anticoagulants; Z95.828 Presence of other vascular implants and grafts; Z74.01 Bed confinement status
CPT/HCPCS: 36600; 51702; 70450; 71045; 74018; 74176; 76705; 76937; 80053; 80061; 80074; 80202; 81001; 82140; 82550; 82552; 82570; 82805; 82948; 83605; 83615; 83735; 84100; 84132; 84300; 84443; 84484; 85007; 85025; 85027; 85384; 85610; 85730; 87040; 87086; 87205; 87804; 93005; 93306; 94640; 94664; 96365; 96368; J0610; J0692; J1644; J1815; J1940; J1956; J2060; J2212; J2270; J2405; J3370; J7030; J7040; J7050; P9045